=== PATIENT | male | born 1965 | race African-American/Black ===

== ENCOUNTER 2018-05-08 16:38 | Inpatient (IN) | payer MEDICAID ==
[2018-05-08] MEDS ORDERED: Aspirin 81mg Chewable Tab PO STA (16:52)
--- NOTE | 2018-05-08 16:58 | ED Physician Chart ---
ED Chief Complaint/HPI - Patient Information Date Seen:: 05/08/18 Time Seen:: 16:40 Chief Complaint:: Dyspnea History of Present Illness:: onset x one week of dyspnea and exertional, heavy, pressure type Chest pain; pt denies trauma, H/As, S/T, neck pain, cough, Abd. pain, A/N/V/D/C, fever, chills , or urinary s/s Historian:: Patient Review:: Nurse's Note Reviewed ED Review of Systems - Review of Systems General/Constitutional: No fever, No chills, No weight loss, No weakness, No diaphoresis, No edema, No loss of appetite Skin: No skin lesions, No rash, No bruising Head: No headache, No light-headedness Eyes: No loss of vision, No pain, No diplopia ENT: No earache, No nasal drainage, No sore throat, No tinnitus Neck: No neck pain, No swelling, No thyromegaly, No stiffness, No mass noted Cardio Vascular: Chest pain, No palpitations, No PND, No orthopnea, No edema Pulmonary: SOB, No cough, No sputum, No wheezing GI: No nausea, No vomiting, No diarrhea, No pain, No melena, No hematochezia, No constipation, No hematemesis G/U: No dysuria, No frequency, No hematuria, No nacturia Musculoskeletal: No bone or joint pain, No back pain, No muscle pain Endocrine: No polyuria, No polydipsia Psychiatric: No prior psych history, No depression, No anxiety, No suicidal ideation, No homicidal ideation, No auditory hallucination, No visual hallucination Hematopoietic: No bruising, No lymphadenopathy Allergic/Immuno: No urticaria, No angioedema Neurological: No syncope, No focal symptoms, No weakness, No paresthesia, No headache, No seizure, No dizziness, No confusion, No vertigo ED Past Medical History - Past Medical History Obtainable: Yes Past Medical History: HTN, Dyslipidemia Family History: HTN Social History: Non Smoker, No Alcohol, No Drug Use, , Employed Surgical History: None Psychiatricy History: None Medication: Reviewed ED Physical Exam - Physical Examination General/Constitutional: Awake, Well-developed, well-nourished, Alert, No distress, GCS 15, Non-toxic appearing, Ambulatory Head: Atraumatic Eyes: Lids, conjuctiva normal, PERRL, EOMI Skin: Nl inspection, No rash, No skin lesions, No ecchymosis, Well hydrated, No lymphadenopathy ENMT: External ears, nose nl, TM canals nl, Nasal exam nl, Lips, teeth, gums nl , Oropharynx nl, Tonsils nl Neck: Nontender, Full ROM w/o pain, No JVD, No nuchal rigidity, No bruit, No mass, No stridor Respiratory: Nl effort/Exclusion, Clear to Auscultation, No Wheeze/Rhonchi/Rales Cardio Vascular: RRR, No murmur, gallop, rubs, NL S1 S2, Carotid/Femoral/Distal pulses equal bilaterally GI: No tenderness/rebounding/guarding, No organomegaly, No hernia, Normal BS's, Nondistended, No mass/bruits, No McBurney tenderness : No CVA tenderness Extremities: No tenderness or effusion, Full ROM, normal strength in all extremities, No edema, Normal digits & nails Neuro/Psych: Alert/oriented, DTR's symmetric, Normal sensory exam, Normal motor strength, Judgement/insight normal, Mood normal, Normal gait, No focal deficits Misc: Normal back, No paraspinal tenderness ED Labs/Radiology/EKG Results - Lab Results Comments:: K+: 3.1 - Radiology Results Comments:: CXR: + Right Perii-Hilar Mass - EKG Interpretations EKG Time:: 17:02 Rate & Rhythm: 79; NSR Comments:: non-specific st-t changes ED Septic Shock - . Is Septic Shock (SBP<90, OR Lactate>4 mmol\L) present?: No ED Reassessment (Disposition) - Reassessment Reassessment Condition:: Improved - Diagnosis Diagnosis:: Chest Pain; Dyspnea; Angina Pectoris; Lung Mass; Hypokalemia; Hyperlipidemia - Aftercare/Follow up Instructions Aftercare/Follow-Up Instructions:: Counseled pt regarding lab results/diagnosis & need follow up, Counseled pt & family regarding lab results/diagnosis & need follow up - Patient Disposition Discharge/Transfer:: Acute Care w/in this hosp Accepting Physician:: Dr. Lester Time Called:: 1800 Time Responded:: 18:00 Admitted to:: Telemetry Spoke to:: Dr. Lester Admitting Medical Physician:: Dr. Lester Condition at Disposition:: Stable, Improved
[2018-05-08] MEDS ORDERED: Aspirin 81mg Chewable Tab ONE (17:01)
[2018-05-08 17:11] LABS: % BASOPHILS 0.7 % (0.0-2.0); % EOSINOPHILS 4.5 % (0.0-5.0); % MONOCYTES 7.5 % (2.0-10.0); % NEUTROPHILS 43.3 % (40.0-80.0); EOSINOPHILE ABSOLUTE 0.2 Th/cmm (0.1-0.4); HEMATOCRIT 46.5 % (41.0-60); HEMOGLOBIN 15.2 gm/dL (12-16); LYMPHOCYTE ABSOLUTE 2.5 Th/cmm (1.5-3.0); MEAN CELL VOLUME 86.4 fl (80-99); MEAN CORPUSCULAR HEMOGLOBIN 28.2 pg (26.0-30.0); MEAN CORPUSCULAR HGB CONC 32.7 pg (28.0-36.0); MEAN PLATELET VOLUME 8.4 fl; MONOCYTE ABSOLUTE 0.4 Th/cmm (0.3-1.0); NEUTROPHILE ABSOLUTE 2.4 Th/cmm (1.8-8.0); PLATELET COUNT 299 Th/cmm (150-400); RED BLOOD COUNT 5.38 Mil/cmm (4.30-5.70); RED CELL DISTRIBUTION WIDTH 12.6 % (11.5-20.0); WHITE BLOOD COUNT 5.5 Th/cmm (4.8-10.8)
[2018-05-08 17:22] LABS: INR 0.95 (0.5-1.4); PROTHROMBIN TIME (TEST) 9.9 SECONDS (9.5-11.5)
[2018-05-08 17:27] LABS: ALB/GLOB RATIO 1.2 (1.0-1.8); ALBUMIN 4.3 gm/dL (4.2-5.5); ALKALINE PHOSPHATASE 63 U/L (34-104); ANION GAP 10.3 (7.0-16.0); BILIRUBIN,TOTAL 0.5 mg/dL (0.3-1.0); BUN - UREA NITROGEN 18 mg/dL (7-25); CALCIUM SERUM 9.4 mg/dL (8.6-10.3); CARBON DIOXIDE 26.8 mEq/L (21.0-31.0); CHLORIDE 104 mEq/L (98-107); CHOLESTEROL 223 mg/dL (<200); CREATININE - SERUM 1.2 mg/dL (0.7-1.3); CREATININE KINASE 190 U/L (30-223); GFR AFRICAN-AMERICAN > 60.0 ml/min (>90); GFR NON AFRICAN-AMERICAN > 60.0 ml/min; GLUCOSE 84 mg/dL (70-105); HDL -HIGH DENSITY LIPOPROTEIN 56 mg/dL (23-92); POTASSIUM SERUM 3.1 mEq/L (3.5-5.1); SGOT 21 U/L (13-39); SGPT/ALT 16 U/L (7-52); SODIUM SERUM 138 mEq/L (136-145); TOTAL PROTEIN,SERUM 7.8 gm/dL (6.0-8.3); TRIGLYCERIDES 123 mg/dL (<150)
[2018-05-08 17:30] LABS: DDIMER QUANT 147 ng/mL (100-400)
[2018-05-08] MEDS ORDERED: Potassium Chloride 20 mEq ER Tab PO ONE ×2 (18:12→18:24)
[2018-05-08] MEDS ORDERED: Potassium Chloride Elixir 20 mEq /15 mL UDC ONE (18:27)
[2018-05-09 06:30] LABS: BASOPHILE ABSOLUTE 0.1 Th/cumm (0-0.2); EOSINOPHILE ABSOLUTE 0.3 Th/cmm (0.1-0.4); HEMATOCRIT 44.7 % (41.0-60); HEMOGLOBIN 14.5 gm/dL (12-16); LYMPHOCYTE ABSOLUTE 3.5 Th/cmm (1.5-3.0); MEAN CELL VOLUME 86.7 fl (80-99); MEAN CORPUSCULAR HEMOGLOBIN 28.2 pg (26.0-30.0); MEAN CORPUSCULAR HGB CONC 32.5 pg (28.0-36.0); MEAN PLATELET VOLUME 8.8 fl; MONOCYTE ABSOLUTE 0.4 Th/cmm (0.3-1.0); NEUTROPHILE ABSOLUTE 1.5 Th/cmm (1.8-8.0); PLATELET COUNT 298 Th/cmm (150-400); RED BLOOD COUNT 5.15 Mil/cmm (4.30-5.70); RED CELL DISTRIBUTION WIDTH 12.9 % (11.5-20.0); WHITE BLOOD COUNT 5.8 Th/cmm (4.8-10.8)
[2018-05-09 06:40] LABS: ALB/GLOB RATIO 1.3 (1.0-1.8); ALKALINE PHOSPHATASE 52 U/L (34-104); ANION GAP 8.6 (7.0-16.0); BILIRUBIN,TOTAL 0.5 mg/dL (0.3-1.0); BUN - UREA NITROGEN 14 mg/dL (7-25); CALCIUM SERUM 9.3 mg/dL (8.6-10.3); CARBON DIOXIDE 28.4 mEq/L (21.0-31.0); CHLORIDE 105 mEq/L (98-107); CREATININE - SERUM 1.2 mg/dL (0.7-1.3); GFR AFRICAN-AMERICAN > 60.0 ml/min (>90); GFR NON AFRICAN-AMERICAN > 60.0 ml/min; GLUCOSE 96 mg/dL (70-105); SGOT 19 U/L (13-39); SGPT/ALT 17 U/L (7-52); SODIUM SERUM 138 mEq/L (136-145); TOTAL PROTEIN,SERUM 7.2 gm/dL (6.0-8.3)
[2018-05-09 06:41] LABS: % EOSINOPHILS 5.5 % (0.0-5.0); % LYMPHOCYTES 60.9 % (20.0-50.0); % MONOCYTES 6.9 % (2.0-10.0); % NEUTROPHILS 25.7 % (40.0-80.0)
--- NOTE | 2018-05-09 08:37 | Diagnostic Imaging Report ---
CHEST X-RAY: AP view INDICATION: Chest pain COMPARISON: None FINDINGS: There is a large right-sided pneumothorax with right lung collapse and consolidation and minimal leftward mediastinal shift. Heart size normal. Osseous structures are intact. IMPRESSION: Large right-sided pneumothorax with associated consolidation and minimal leftward mediastinal shift. Recommend immediate right chest tube placement.
--- NOTE | 2018-05-09 09:16 | History and Physical ---
History of Present Illness - HPI Chief Complaint: Chest Pressure and SOB at exertion HPI: Patient refer that x one week he has having Chest pressure and SOB at exertion, reason why he came to ER. Vital Signs: Last Vital Signs Temp 96.9 F 05/09/18 08:00 Pulse 69 05/09/18 08:41 Resp 18 05/09/18 08:00 BP 124/79 05/09/18 08:41 Pulse Ox 98 05/09/18 08:00 Past Medical History Cardiovascular: Report: HTN Pulmonary: Report: No Pertinent Hx REROLLER HAND: Report: No Pertinent Hx GI: Report: No Pertinent Hx Psych: Report: No Pertinent Hx Musculoskeletal: Report: No Pertinent Hx Rheumatologic: Report: No pertinent Hx Infectious Disease: Report: No Pertinent Hx Renal/: Report: No Pertinent Hx Endocrine: Report: No Pertinent Hx Dermatology: Report: No Pertinent Hx Family Medical History - Family Member Mother History Unknown: Yes Age: 83 Living Status: Hx Family Cancer: Yes (Breast Cancer) Hx Family Coronary Artery Disease: No Hx Family Congestive Heart Failure: No Hx Family Hypertension: Yes Hx Family Stroke: No Hx Family Diabetes: No Hx Family Seizures: No Hx Family Dementia: Yes Hx Family AIDS: No Hx Family HIV: No Hx Family COPD: No Hx Family Hepatitis: No Hx Family Psychiatric Problems: No Hx Family Tuberculosis: No Father Age: 76 Living Status: Hx Family Stroke: Yes Social History Smoke: Quit Alcohol: Occassional Drugs: None Lives: With Family Domestic Violence: Negative - Allergies Allergies/Adverse Reactions: Allergies Allergy/AdvReac Type Severity Reaction Status Date / Time No Known Allergies Allergy Verified 05/08/18 18:01 Review of Systems - Review of Systems Constitutional: Report: No Significant Eyes: Report: No Significant ENT: Report: No Significant Respiratory: Report: Shortness of Breath Cardiovascular: Report: Palpitations Gastrointestinal: Report: No Significant Genitourinary: Report: No Significant Musculoskeletal: Report: No Significant Skin: Report: No Significant Neurological: Report: No Significant Physical Exam - Physical Exam HEENT: Report: Ears Nose Throat within normal limits Neck: Report: Within normal limits Cardiovascular Systems: Report: Regular, Rate and Rhythm Respiratory: Report: Other Abdomen: Report: Non-tender to palpation Back: Report: Inspection of back is within normal limits. Extremities: Report: Non-tender to palpation. Skin: Report: Color of skin is within normal limits, Warm, Dry Neuro/Psych: Report: Mood affect is within normal limits - Lab Results All Lab Results last 24 hours: Laboratory Results - last 24 hr 05/08/18 05/08/18 05/08/18 17:05 17:05 17:05 WBC 5.5 RBC 5.38 Hgb 15.2 Hct 46.5 MCV 86.4 MCH 28.2 MCHC Differential 32.7 RDW 12.6 Plt Count 299 MPV 8.4 Neutrophils % 43.3 Lymphocytes % 44.0 Monocytes % 7.5 Eosinophils % 4.5 Basophils % 0.7 PT 9.9 INR 0.95 D-Dimer 147 Sodium 138 Potassium 3.1 L Chloride 104 Carbon Dioxide 26.8 Anion Gap 10.3 BUN 18 Creatinine 1.2 Est GFR ( Amer) > 60.0 Est GFR (Non-Af Amer) > 60.0 BUN/Creatinine Ratio 15.0 Glucose 84 POC Glucose Calcium 9.4 Total Bilirubin 0.5 AST 21 ALT 16 Alkaline Phosphatase 63 Creatine Kinase 190 Troponin I B-Natriuretic Peptide Total Protein 7.8 Albumin 4.3 Globulin 3.5 Albumin/Globulin Ratio 1.2 Triglycerides 123 Cholesterol 223 H LDL Cholesterol Direct 146 HDL Cholesterol 56 05/08/18 05/08/18 05/08/18 17:05 17:05 21:51 WBC RBC Hgb Hct MCV MCH MCHC Differential RDW Plt Count MPV Neutrophils % Lymphocytes % Monocytes % Eosinophils % Basophils % PT INR D-Dimer Sodium Potassium Chloride Carbon Dioxide Anion Gap BUN Creatinine Est GFR ( Amer) Est GFR (Non-Af Amer) BUN/Creatinine Ratio Glucose POC Glucose 107 H Calcium Total Bilirubin AST ALT Alkaline Phosphatase Creatine Kinase Troponin I < 0.01 L B-Natriuretic Peptide < 5.0 L Total Protein Albumin Globulin Albumin/Globulin Ratio Triglycerides Cholesterol LDL Cholesterol Direct HDL Cholesterol 05/09/18 05/09/18 05/09/18 05:50 05:50 05:50 WBC 5.8 RBC 5.15 Hgb 14.5 Hct 44.7 MCV 86.7 MCH 28.2 MCHC Differential 32.5 RDW 12.9 Plt Count 298 MPV 8.8 Neutrophils % 25.7 L Lymphocytes % 60.9 H Monocytes % 6.9 Eosinophils % 5.5 H Basophils % 1.0 PT INR D-Dimer Sodium 138 Potassium 4.0 Chloride 105 Carbon Dioxide 28.4 Anion Gap 8.6 BUN 14 Creatinine 1.2 Est GFR ( Amer) > 60.0 Est GFR (Non-Af Amer) > 60.0 BUN/Creatinine Ratio 11.7 Glucose 96 POC Glucose Calcium 9.3 Total Bilirubin 0.5 AST 19 ALT 17 Alkaline Phosphatase 52 Creatine Kinase Troponin I < 0.01 L B-Natriuretic Peptide Total Protein 7.2 Albumin 4.0 L Globulin 3.2 Albumin/Globulin Ratio 1.3 Triglycerides Cholesterol LDL Cholesterol Direct HDL Cholesterol - Assessment Assessment: Patient is awake, alert, calm in no acute distress, final report for CXR came and shows a bigh Pneumothorax. Dx:Pneumothorax, HTN, Dyslipemia. - Plan Plan: Patient is transferred to ICU, and Chest tub will be placed. Consult with pulmonology and Surgery requested. Will continue to monitor.
[2018-05-09] MEDS: Morphine Sulfate 4 mg/mL 1mL Syr IVP PRN ×2 (10:40→13:53)
--- NOTE | 2018-05-09 11:05 | Diagnostic Imaging Report ---
CHEST X-RAY: AP view INDICATION: Right pneumothorax status post right chest tube COMPARISON: Chest x-ray 05/08/2018 FINDINGS: Right chest tube has been placed with interval reexpansion of the right lung and residual right lateral and basal pneumothorax estimated at 20%. Right basal atelectasis is noted. There is a nodular opacity measuring 1.1 cm along the left mid lung. Heart size is normal. IMPRESSION: Interval right chest tube placement with tip along the right apex. There is reexpansion of the right lung. There is likely a small right basal pneumothorax estimated at 20%. 1.1 cm left mid lung nodular opacity. Recommend short-term further assessment of this finding with CT of the chest. Results were administered to the referring team on 05/09/2018 at 10:55 AM.
[2018-05-09] MEDS: Levofloxacin 750mg/150mL 750 MG/150 ML BAG IV SCH (11:15)
--- NOTE | 2018-05-09 13:23 | Diagnostic Imaging Report ---
CT Chest without IV contrast HISTORY: Pneumothorax, mass COMPARISON: Chest x-ray earlier the same day. Technique: Axial images were obtained from the base of the neck to the upper abdomen without IV contrast. Reconstructions were made. A right anterior chest tube is noted with tip terminating along the right apex. There is a large right pneumothorax estimated at 60%. There is are mild bullous changes in the right apex with 1.5 cm bulla in the apex. There is also a large cystic structure /bulla arising from the anterior medial aspect of the inferior aspect of the right upper lobe adjacent to the right heart border measuring 3.3 x 2.7 x 4.2 cm. (Image 33, series 5 and image 60, series 4.) Groundglass infiltrates right lung are seen with areas of consolidative change involving the right middle lobe. There is also a slightly lobulated 1.6 cm nodule of the left upper lobe with punctate calcifications. No pleural effusions are identified. No evidence of mediastinal lymphadenopathy. Degenerative changes of the spine are noted. IMPRESSION: Persistent large right-sided pneumothorax estimated at 60 %. A right anterior chest tube is now noted with tip terminating along the right apex. There is a large bulla which is almost sequestered from the right lung arising from the most medial and inferior aspect of the right upper lobe adjacent to the right heart border. This bulla measures 3.3 x 2.7 x 4.2 cm. Additional smaller right apical bullae are also noted. Right lung infiltrates and right middle lobe consolidation changes. Left midlung 1.6 cm nodule which may be due to neoplastic process or a pulmonary hamartoma as there is a small calcification within this lesion.
--- NOTE | 2018-05-09 14:09 | Consultation ---
DATE OF CONSULTATION: 05/09/2018 THORACIC SURGICAL CONSULTATION REFERRING PHYSICIAN: Trevon REASON FOR CONSULTATION: Right pneumothorax. Thank you for referring this patient to me. HISTORY OF PRESENT ILLNESS: This is a 52-year-old male, who comes in because of shortness of breath. This happened suddenly. The patient does heavy muscular exercise. He has history of hypertension and hyperlipidemia. On x-ray in the ER, the patient was found to have a large right pneumothorax. He is admitted to ICU. PHYSICAL EXAMINATION: The patient is alert and awake. is at bedside. PLAN: We will place chest tube in the right chest. Informed consent discussed with the patient regarding the procedure and possible complications. CT scan will be ordered to rule out apical bullae. JOB# [id number] MTDD
[2018-05-09] MEDS: HYDROmorphone 2 mg/mL 1mL Vial IVP PRN ×2 (15:39→20:06)
--- NOTE | 2018-05-09 16:14 | Operative Report ---
DATE OF SURGERY: 05/09/2018 PREOPERATIVE DIAGNOSES: 1. Spontaneous pneumothorax, right chest. 2. Hypertension. 3. Hyperlipidemia. POSTOPERATIVE DIAGNOSES: 1. Spontaneous pneumothorax, right chest. 2. Hypertension. 3. Hyperlipidemia. OPERATION DONE: Insertion of right chest tube. PROCEDURE: Right chest was prepped with ChloraPrep and draped in appropriate manner. A 1% lidocaine was used to infiltrate the seventh intercostal space at the midaxillary line. An incision was made. Hemostats was inserted and then a Macedonian 24 trocar catheter. This anchored to the skin with 2-0 silk, it is connected to underwater seal and suction. The patient tolerated the procedure well. JOB# [id number]
[2018-05-09] MEDS: Albuterol/Ipratropium Neb 3 ML AERS HHN SCH (19:40)
[2018-05-10] MEDS: Albuterol/Ipratropium Neb 3 ML AERS HHN SCH ×4 (00:53→19:43)
[2018-05-10 04:48] LABS: EOSINOPHILE ABSOLUTE 0.2 Th/cmm (0.1-0.4); LYMPHOCYTE ABSOLUTE 2.7 Th/cmm (1.5-3.0); MONOCYTE ABSOLUTE 0.7 Th/cmm (0.3-1.0)
[2018-05-10 04:50] LABS: % BASOPHILS 0.2 % (0.0-2.0); % EOSINOPHILS 2.7 % (0.0-5.0); % LYMPHOCYTES 32.6 % (20.0-50.0); % MONOCYTES 8.8 % (2.0-10.0); % NEUTROPHILS 55.7 % (40.0-80.0); HEMATOCRIT 45.4 % (41.0-60); HEMOGLOBIN 15.2 gm/dL (12-16); MEAN CELL VOLUME 85.9 fl (80-99); MEAN CORPUSCULAR HEMOGLOBIN 28.8 pg (26.0-30.0); MEAN CORPUSCULAR HGB CONC 33.5 pg (28.0-36.0); MEAN PLATELET VOLUME 8.3 fl; NEUTROPHILE ABSOLUTE 4.6 Th/cmm (1.8-8.0); PLATELET COUNT 287 Th/cmm (150-400); RED BLOOD COUNT 5.28 Mil/cmm (4.30-5.70); RED CELL DISTRIBUTION WIDTH 12.8 % (11.5-20.0); WHITE BLOOD COUNT 8.2 Th/cmm (4.8-10.8)
[2018-05-10 05:08] LABS: ANION GAP 11.8 (7.0-16.0); BUN - UREA NITROGEN 15 mg/dL (7-25); CALCIUM SERUM 9.2 mg/dL (8.6-10.3); CARBON DIOXIDE 25.8 mEq/L (21.0-31.0); CHLORIDE 99 mEq/L (98-107); CREATININE - SERUM 1.2 mg/dL (0.7-1.3); GFR AFRICAN-AMERICAN > 60.0 ml/min (>90); GFR NON AFRICAN-AMERICAN > 60.0 ml/min; GLUCOSE 125 mg/dL (70-105); POTASSIUM SERUM 3.6 mEq/L (3.5-5.1); SODIUM SERUM 133 mEq/L (136-145)
--- NOTE | 2018-05-10 08:33 | General Progress Note ---
Subjective - Review of Systems Service Date: 05/10/18 Events since last encounter: chest xray today no pneumo CT shwos RUL bulla needs bullaectomy if sealant is available Objective - Results Result Diagrams: 05/10/18 04:40 05/10/18 04:40 Recent Labs: Laboratory Last Values WBC 8.2 Th/cmm (4.8-10.8) 05/10/18 04:40 RBC 5.28 Mil/cmm (4.30-5.70) 05/10/18 04:40 Hgb 15.2 gm/dL (12-16) 05/10/18 04:40 Hct 45.4 % (41.0-60) 05/10/18 04:40 MCV 85.9 fl (80-99) 05/10/18 04:40 MCH 28.8 pg (26.0-30.0) 05/10/18 04:40 MCHC Differential 33.5 pg (28.0-36.0) 05/10/18 04:40 RDW 12.8 % (11.5-20.0) 05/10/18 04:40 Plt Count 287 Th/cmm (150-400) 05/10/18 04:40 MPV 8.3 fl 05/10/18 04:40 Neutrophils % 55.7 % (40.0-80.0) 05/10/18 04:40 Lymphocytes % 32.6 % (20.0-50.0) 05/10/18 04:40 Monocytes % 8.8 % (2.0-10.0) 05/10/18 04:40 Eosinophils % 2.7 % (0.0-5.0) 05/10/18 04:40 Basophils % 0.2 % (0.0-2.0) 05/10/18 04:40 PT 9.9 SECONDS (9.5-11.5) 05/08/18 17:05 INR 0.95 (0.5-1.4) 05/08/18 17:05 D-Dimer 147 ng/mL (100-400) 05/08/18 17:05 Sodium 133 mEq/L (136-145) L 05/10/18 04:40 Potassium 3.6 mEq/L (3.5-5.1) 05/10/18 04:40 Chloride 99 mEq/L (98-107) 05/10/18 04:40 Carbon Dioxide 25.8 mEq/L (21.0-31.0) 05/10/18 04:40 Anion Gap 11.8 (7.0-16.0) 05/10/18 04:40 BUN 15 mg/dL (7-25) 05/10/18 04:40 Creatinine 1.2 mg/dL (0.7-1.3) 05/10/18 04:40 Est GFR ( Amer) > 60.0 ml/min (>90) 05/10/18 04:40 Est GFR (Non-Af Amer) > 60.0 ml/min 05/10/18 04:40 BUN/Creatinine Ratio 12.5 05/10/18 04:40 Glucose 125 mg/dL (70-105) H 05/10/18 04:40 POC Glucose 107 MG/DL (70 - 105) H 05/08/18 21:51 Calcium 9.2 mg/dL (8.6-10.3) 05/10/18 04:40 Total Bilirubin 0.5 mg/dL (0.3-1.0) 05/09/18 05:50 AST 19 U/L (13-39) 05/09/18 05:50 ALT 17 U/L (7-52) 05/09/18 05:50 Alkaline Phosphatase 52 U/L (34-104) 05/09/18 05:50 Creatine Kinase 190 U/L (30-223) 05/08/18 17:05 Troponin I < 0.01 ng/mL (0.01-0.05) L 05/09/18 05:50 B-Natriuretic Peptide < 5.0 pg/mL (5.0-100.0) L 05/08/18 17:05 Total Protein 7.2 gm/dL (6.0-8.3) 05/09/18 05:50 Albumin 4.0 gm/dL (4.2-5.5) L 05/09/18 05:50 Globulin 3.2 gm/dL 05/09/18 05:50 Albumin/Globulin Ratio 1.3 (1.0-1.8) 05/09/18 05:50 Triglycerides 123 mg/dL (<150) 05/08/18 17:05 Cholesterol 223 mg/dL (<200) H 05/08/18 17:05 LDL Cholesterol Direct 146 mg/dL (75-193) 05/08/18 17:05 HDL Cholesterol 56 mg/dL (23-92) 05/08/18 17:05 - Physical Exam Vitals and I&O: Vital Signs Temp 97.1 F 05/10/18 08:00 Pulse 55 05/10/18 08:00 Resp 15 05/10/18 08:00 BP 118/81 05/10/18 08:00 Pulse Ox 99 05/10/18 08:00 Intake & Output 05/09/18 05/10/18 05/10/18 18:59 06:59 18:59 Intake Total 350 Balance 350 Weight (lbs) 90.718 kg 90.718 kg Intake: Intake, IV Amount 150 Levofloxacin 750mg/150mL 150 750 mg In 150 ml @ 100 mls/hr IV Q24H [facility] Rx#: [id number] Oral 200 Other: # Voids 1 # Bowel Movements 0 Stool Characteristics Formed Brown Weight Source Bedscale Bedscale Active Medications: Current Medications Acetaminophen (Tylenol) 650 mg PO Q6H PRN PRN Reason: Pain or Fever >101 Stop: 07/07/18 19:45 Last Admin: 05/10/18 02:44 Dose: 650 mg Albuterol/Ipratropium (Duoneb Neb) 3 ml HHN Q6HRT [facility] Stop: 07/08/18 18:59 Last Admin: 05/10/18 07:06 Dose: 3 ml Amlodipine Besylate (Norvasc) 10 mg PO DAILY [facility] Stop: 07/08/18 08:59 Last Admin: 05/09/18 08:41 Dose: 10 mg Aspirin (Aspirin) 325 mg PO DAILY [facility] Stop: 07/08/18 08:59 Last Admin: 05/09/18 08:40 Dose: 325 mg Hydrochlorothiazide (Hctz) 25 mg PO DAILY [facility] Stop: 07/08/18 08:59 Last Admin: 05/09/18 08:40 Dose: 25 mg Hydromorphone HCl (Dilaudid) 2 mg IVP Q4HR PRN PRN Reason: Severe Pain Stop: 07/08/18 15:20 Last Admin: 05/09/18 20:06 Dose: 2 mg Levofloxacin (Levaquin Pb) 750 mg in 150 mls @ 100 mls/hr IV Q24H [facility] Stop: 07/08/18 10:59 Last Infusion: 05/09/18 12:45 Dose: Infused Ondansetron HCl (Zofran) 4 mg IV Q6H PRN PRN Reason: Nausea / Vomiting Stop: 07/07/18 19:45 Last Admin: 05/09/18 17:48 Dose: 4 mg Ondansetron HCl (Zofran Odt) 4 mg PO Q6H PRN PRN Reason: Nausea / Vomiting Stop: 07/08/18 17:28 Temazepam (Restoril) 15 mg PO HS PRN; Protocol PRN Reason: Insomnia Stop: 07/08/18 17:28 Last Admin: 05/10/18 00:16 Dose: 15 mg
--- NOTE | 2018-05-10 09:07 | Diagnostic Imaging Report ---
Portable chest x-ray HISTORY: Shortness of breath Compared with prior exam of 05/09/2018, no definite right pneumothorax is clearly visualized. No change in right chest tube position. No change in previously reported 1.5 cm faint nodular density within the left upper lobe. IMPRESSION: 1. No change in right chest tube position. No definite pneumothorax can be defined at this time. 2. No change in previously reported pulmonary nodule within the left lung.
--- NOTE | 2018-05-10 09:07 | General Progress Note ---
Subjective - Review of Systems Service Date: 05/10/18 Subjective: I am better Objective - Results Result Diagrams: 05/10/18 04:40 05/10/18 04:40 Recent Labs: Laboratory Last Values WBC 8.2 Th/cmm (4.8-10.8) 05/10/18 04:40 RBC 5.28 Mil/cmm (4.30-5.70) 05/10/18 04:40 Hgb 15.2 gm/dL (12-16) 05/10/18 04:40 Hct 45.4 % (41.0-60) 05/10/18 04:40 MCV 85.9 fl (80-99) 05/10/18 04:40 MCH 28.8 pg (26.0-30.0) 05/10/18 04:40 MCHC Differential 33.5 pg (28.0-36.0) 05/10/18 04:40 RDW 12.8 % (11.5-20.0) 05/10/18 04:40 Plt Count 287 Th/cmm (150-400) 05/10/18 04:40 MPV 8.3 fl 05/10/18 04:40 Neutrophils % 55.7 % (40.0-80.0) 05/10/18 04:40 Lymphocytes % 32.6 % (20.0-50.0) 05/10/18 04:40 Monocytes % 8.8 % (2.0-10.0) 05/10/18 04:40 Eosinophils % 2.7 % (0.0-5.0) 05/10/18 04:40 Basophils % 0.2 % (0.0-2.0) 05/10/18 04:40 PT 9.9 SECONDS (9.5-11.5) 05/08/18 17:05 INR 0.95 (0.5-1.4) 05/08/18 17:05 D-Dimer 147 ng/mL (100-400) 05/08/18 17:05 Sodium 133 mEq/L (136-145) L 05/10/18 04:40 Potassium 3.6 mEq/L (3.5-5.1) 05/10/18 04:40 Chloride 99 mEq/L (98-107) 05/10/18 04:40 Carbon Dioxide 25.8 mEq/L (21.0-31.0) 05/10/18 04:40 Anion Gap 11.8 (7.0-16.0) 05/10/18 04:40 BUN 15 mg/dL (7-25) 05/10/18 04:40 Creatinine 1.2 mg/dL (0.7-1.3) 05/10/18 04:40 Est GFR ( Amer) > 60.0 ml/min (>90) 05/10/18 04:40 Est GFR (Non-Af Amer) > 60.0 ml/min 05/10/18 04:40 BUN/Creatinine Ratio 12.5 05/10/18 04:40 Glucose 125 mg/dL (70-105) H 05/10/18 04:40 POC Glucose 107 MG/DL (70 - 105) H 05/08/18 21:51 Calcium 9.2 mg/dL (8.6-10.3) 05/10/18 04:40 Total Bilirubin 0.5 mg/dL (0.3-1.0) 05/09/18 05:50 AST 19 U/L (13-39) 05/09/18 05:50 ALT 17 U/L (7-52) 05/09/18 05:50 Alkaline Phosphatase 52 U/L (34-104) 05/09/18 05:50 Creatine Kinase 190 U/L (30-223) 05/08/18 17:05 Troponin I < 0.01 ng/mL (0.01-0.05) L 05/09/18 05:50 B-Natriuretic Peptide < 5.0 pg/mL (5.0-100.0) L 05/08/18 17:05 Total Protein 7.2 gm/dL (6.0-8.3) 05/09/18 05:50 Albumin 4.0 gm/dL (4.2-5.5) L 05/09/18 05:50 Globulin 3.2 gm/dL 05/09/18 05:50 Albumin/Globulin Ratio 1.3 (1.0-1.8) 05/09/18 05:50 Triglycerides 123 mg/dL (<150) 05/08/18 17:05 Cholesterol 223 mg/dL (<200) H 05/08/18 17:05 LDL Cholesterol Direct 146 mg/dL (75-193) 05/08/18 17:05 HDL Cholesterol 56 mg/dL (23-92) 05/08/18 17:05 - Physical Exam Vitals and I&O: Vital Signs Temp 97.1 F 05/10/18 08:00 Pulse 55 05/10/18 08:00 Resp 15 05/10/18 08:00 BP 118/81 05/10/18 08:00 Pulse Ox 99 05/10/18 08:00 Intake & Output 05/09/18 05/10/18 05/10/18 18:59 06:59 18:59 Intake Total 350 Balance 350 Weight (lbs) 90.718 kg 90.718 kg Intake: Intake, IV Amount 150 Levofloxacin 750mg/150mL 150 750 mg In 150 ml @ 100 mls/hr IV Q24H [facility] Rx#: [id number] Oral 200 Other: # Voids 1 # Bowel Movements 0 Stool Characteristics Formed Brown Weight Source Bedscale Bedscale Active Medications: Current Medications Acetaminophen (Tylenol) 650 mg PO Q6H PRN PRN Reason: Pain or Fever >101 Stop: 07/07/18 19:45 Last Admin: 05/10/18 02:44 Dose: 650 mg Albuterol/Ipratropium (Duoneb Neb) 3 ml HHN Q6HRT [facility] Stop: 07/08/18 18:59 Last Admin: 05/10/18 07:06 Dose: 3 ml Amlodipine Besylate (Norvasc) 10 mg PO DAILY [facility] Stop: 07/08/18 08:59 Last Admin: 05/09/18 08:41 Dose: 10 mg Aspirin (Aspirin) 325 mg PO DAILY [facility] Stop: 07/08/18 08:59 Last Admin: 05/09/18 08:40 Dose: 325 mg Hydrochlorothiazide (Hctz) 25 mg PO DAILY [facility] Stop: 07/08/18 08:59 Last Admin: 05/09/18 08:40 Dose: 25 mg Hydromorphone HCl (Dilaudid) 2 mg IVP Q4HR PRN PRN Reason: Severe Pain Stop: 07/08/18 15:20 Last Admin: 05/09/18 20:06 Dose: 2 mg Levofloxacin (Levaquin Pb) 750 mg in 150 mls @ 100 mls/hr IV Q24H [facility] Stop: 08/12/18 10:59 Last Infusion: 05/09/18 12:45 Dose: Infused Ondansetron HCl (Zofran) 4 mg IV Q6H PRN PRN Reason: Nausea / Vomiting Stop: 07/07/18 19:45 Last Admin: 05/09/18 17:48 Dose: 4 mg Ondansetron HCl (Zofran Odt) 4 mg PO Q6H PRN PRN Reason: Nausea / Vomiting Stop: 07/08/18 17:28 Temazepam (Restoril) 15 mg PO HS PRN; Protocol PRN Reason: Insomnia Stop: 07/08/18 17:28 Last Admin: 05/10/18 00:16 Dose: 15 mg General: Alert, Oriented x3, Cooperative, No acute distress HEENT: Atraumatic Neck: Supple Cardiovascular: Regular rate Lungs: Other (No air entry in right lung, with a chest tube in right hemithorax. ) Abdomen: Bowel sounds, Soft Extremities: Other (No edema) Neurological: Normal gait Skin: Other (Warm and dry) Psych/Mental Status: Mental status NL Assessment/Plan - Assessment Assessment: Patient is awake, alert, calm in no acute distress, Chest CT shows a bulle, Pneumothorax an a nodule in midle left lung, Patient refer that a biopsy was done and came normal. Dx:Pneumothorax, HTN, Dyslipemia. - Plan Plan: Patient is transferred to ICU, Chest tub in place. Seen by pulmonology and Surgery. Will continue to monitor.
[2018-05-10] MEDS: HYDROmorphone 2 mg/mL 1mL Vial IVP PRN ×2 (09:19→14:10)
[2018-05-10] MEDS: Levofloxacin 750mg/150mL 750 MG/150 ML BAG IV SCH (10:02)
--- NOTE | 2018-05-10 13:11 | Consultation ---
DATE OF CONSULTATION: 05/09/[address] Lester. HISTORY AND PHYSICAL: This 52-year-old male patient who has been complaining of sudden onset of shortness of breath. The patient does have heavy muscular exercise. The patient came to the Emergency Room. The patient had a large right pneumothorax since the patient had a chest tube and patient is admitted to ICU. PAST MEDICAL HISTORY: Hypertension, hyperlipidemia. FAMILY HISTORY: Unremarkable. SOCIAL HISTORY: No history of smoking, alcohol abuse. ALLERGIES: None. PHYSICAL EXAMINATION: VITAL SIGNS: Blood pressure 130/80, pulse 70, respirations 20. HEAD: Normocephalic. No lumps or bumps. EYES: Pupils equal, reactive to light. Fundi show AV nicking, sclerae white, conjunctivae pink. NECK: Carotid 2+. Normal upstroke. JVD flat. Thyroid not palpable. Lymph nodes not palpable. CHEST: Shows increased AP diameter. No kyphosis, scoliosis. LUNGS: Bilateral bronchovesicular breath sounds. HEART: PMI fifth intercostal space with lateral to midclavicular line. S1, S2. No S3, S4. Soft systolic murmur. ABDOMEN: Soft. Liver and spleen not palpable. No organomegaly. Bowel sounds active. NEUROLOGIC: Unremarkable. EXTREMITIES: Peripheral pulses 2+. No pedal edema. CLINICAL IMPRESSION: Acute right pneumothorax with chest tube, hypertension, hyperlipidemia. PLAN: We will continue present care. Monitor the patient closely. Also get an echocardiogram. [facility]# [id number]
--- NOTE | 2018-05-10 17:18 | Consultation ---
DATE OF CONSULTATION: 05/09/[address] Lester for this consultation. HISTORY OF PRESENT ILLNESS: This is a 52-year-old male who apparently has been complaining of some right-sided pressure for about a week, presented to Emergency Room yesterday. This morning, the chest x-ray was called to have a pneumothorax. I was called for consultation, advised to have a thoracic surgeon see the patient for chest tube placement, which the patient had. The patient is feeling better, pressure is less, chest pain is less, having some nausea. The patient denies history of lung problems before, but he has a history of smoking for about a pack a day since age 14, quit a year ago, still does some vaping according to his . The patient does body building and heavy weight lifting and exercising. REVIEW OF SYSTEMS: GENERAL: Some weakness and fatigue. CARDIOVASCULAR: No chest pain or palpation. RESPIRATORY: Shortness of breath and chest pressure on the right side. GASTROINTESTINAL: Some nausea, no vomiting. GENITOURINARY: No dysuria or frequency. PHYSICAL EXAMINATION: GENERAL: Awake, alert, not in acute distress. VITAL SIGNS: Temperature is 97.6, pulse 70, respirations 15, blood pressure 128/94, saturation 98%. HEENT: Atraumatic, normocephalic. Pupils are equal and reactive to light and accommodation. Ears, nose and throat are normal. NECK: Supple. No JVD. CHEST: There are good breath sounds bilaterally. No wheezing or crackles. HEART: Regular rate and rhythm. ABDOMEN: Soft. EXTREMITIES: No edema. LABORATORY DATA: WBCs is 5.8, hemoglobin 14.5, hematocrit 44.7, platelets 298. Sodium ___, potassium 4.0, BUN is 14, creatinine 1.2. Troponin is less than 0.01. Chest x-ray, large pneumothorax on the right side, almost full expansion of the lung on the right side after chest tube placement. CT chest showing the pneumothorax with right chest tube, bulla, and nodule in the left lower lobe area. IMPRESSION AND PLAN: 1. This is a right-sided pneumothorax with possibly underlying COPD and emphysematous changes in addition precipitated by heavy weight lifting as well, better after chest tube placement ____ chest tube to suction. 2. Follow up chest x-ray. 3. Nausea medication, nebulizer treatments, advised to stay away from smoking or vaping as well. Thank you very much for this consultation. We will follow the patient with you. JOB# [id number]
[2018-05-11] MEDS: Albuterol/Ipratropium Neb 3 ML AERS HHN SCH ×4 (00:07→19:08)
[2018-05-11] MEDS: HYDROmorphone 2 mg/mL 1mL Vial IVP PRN ×5 (00:47→20:25)
[2018-05-11 05:21] LABS: % BASOPHILS 0.3 % (0.0-2.0); % EOSINOPHILS 4.6 % (0.0-5.0); % MONOCYTES 7.5 % (2.0-10.0); % NEUTROPHILS 45.6 % (40.0-80.0); EOSINOPHILE ABSOLUTE 0.3 Th/cmm (0.1-0.4); HEMATOCRIT 45.4 % (41.0-60); HEMOGLOBIN 14.9 gm/dL (12-16); LYMPHOCYTE ABSOLUTE 2.7 Th/cmm (1.5-3.0); MEAN CELL VOLUME 86.2 fl (80-99); MEAN CORPUSCULAR HEMOGLOBIN 28.3 pg (26.0-30.0); MEAN CORPUSCULAR HGB CONC 32.8 pg (28.0-36.0); MEAN PLATELET VOLUME 8.3 fl; MONOCYTE ABSOLUTE 0.5 Th/cmm (0.3-1.0); NEUTROPHILE ABSOLUTE 2.9 Th/cmm (1.8-8.0); PLATELET COUNT 303 Th/cmm (150-400); RED BLOOD COUNT 5.26 Mil/cmm (4.30-5.70); RED CELL DISTRIBUTION WIDTH 12.4 % (11.5-20.0); WHITE BLOOD COUNT 6.4 Th/cmm (4.8-10.8)
[2018-05-11 05:31] LABS: INR 0.95 (0.5-1.4); PROTHROMBIN TIME (TEST) 9.9 SECONDS (9.5-11.5)
[2018-05-11 05:34] LABS: ALB/GLOB RATIO 1.2 (1.0-1.8); ALBUMIN 4.1 gm/dL (4.2-5.5); ALKALINE PHOSPHATASE 70 U/L (34-104); ANION GAP 10.3 (7.0-16.0); BILIRUBIN,TOTAL 0.5 mg/dL (0.3-1.0); BUN - UREA NITROGEN 15 mg/dL (7-25); CARBON DIOXIDE 30.1 mEq/L (21.0-31.0); CHLORIDE 98 mEq/L (98-107); CREATININE - SERUM 1.3 mg/dL (0.7-1.3); GFR AFRICAN-AMERICAN > 60.0 ml/min (>90); GFR NON AFRICAN-AMERICAN > 60.0 ml/min; GLUCOSE 99 mg/dL (70-105); POTASSIUM SERUM 3.4 mEq/L (3.5-5.1); SGOT 17 U/L (13-39); SGPT/ALT 17 U/L (7-52); SODIUM SERUM 135 mEq/L (136-145); TOTAL PROTEIN,SERUM 7.6 gm/dL (6.0-8.3)
[2018-05-11] MEDS: D5-0.9%NS 1,000 ML IV SCH ×2 (07:04→18:53)
[2018-05-11] MEDS ORDERED: KCL 20mEq/100mL Premix 20 MEQ/100 ML PIGGYBACK IV ONE (07:42)
--- NOTE | 2018-05-11 08:32 | General Progress Note ---
Subjective - Review of Systems Service Date: 05/11/18 Subjective: I am better Objective - Results Result Diagrams: 05/11/18 05:00 05/11/18 05:00 Recent Labs: Laboratory Last Values WBC 6.4 Th/cmm (4.8-10.8) 05/11/18 05:00 RBC 5.26 Mil/cmm (4.30-5.70) 05/11/18 05:00 Hgb 14.9 gm/dL (12-16) 05/11/18 05:00 Hct 45.4 % (41.0-60) 05/11/18 05:00 MCV 86.2 fl (80-99) 05/11/18 05:00 MCH 28.3 pg (26.0-30.0) 05/11/18 05:00 MCHC Differential 32.8 pg (28.0-36.0) 05/11/18 05:00 RDW 12.4 % (11.5-20.0) 05/11/18 05:00 Plt Count 303 Th/cmm (150-400) 05/11/18 05:00 MPV 8.3 fl 05/11/18 05:00 Neutrophils % 45.6 % (40.0-80.0) 05/11/18 05:00 Lymphocytes % 42.0 % (20.0-50.0) 05/11/18 05:00 Monocytes % 7.5 % (2.0-10.0) 05/11/18 05:00 Eosinophils % 4.6 % (0.0-5.0) 05/11/18 05:00 Basophils % 0.3 % (0.0-2.0) 05/11/18 05:00 PT 9.9 SECONDS (9.5-11.5) 05/11/18 05:00 INR 0.95 (0.5-1.4) 05/11/18 05:00 PTT (Actin FS) 28.1 SECONDS (26.0-38.0) 05/11/18 05:00 D-Dimer 147 ng/mL (100-400) 05/08/18 17:05 Sodium 135 mEq/L (136-145) L 05/11/18 05:00 Potassium 3.4 mEq/L (3.5-5.1) L 05/11/18 05:00 Chloride 98 mEq/L (98-107) 05/11/18 05:00 Carbon Dioxide 30.1 mEq/L (21.0-31.0) 05/11/18 05:00 Anion Gap 10.3 (7.0-16.0) 05/11/18 05:00 BUN 15 mg/dL (7-25) 05/11/18 05:00 Creatinine 1.3 mg/dL (0.7-1.3) 05/11/18 05:00 Est GFR ( Amer) > 60.0 ml/min (>90) 05/11/18 05:00 Est GFR (Non-Af Amer) > 60.0 ml/min 05/11/18 05:00 BUN/Creatinine Ratio 11.5 05/11/18 05:00 Glucose 99 mg/dL (70-105) 05/11/18 05:00 POC Glucose 107 MG/DL (70 - 105) H 05/08/18 21:51 Calcium 9.0 mg/dL (8.6-10.3) 05/11/18 05:00 Total Bilirubin 0.5 mg/dL (0.3-1.0) 05/11/18 05:00 AST 17 U/L (13-39) 05/11/18 05:00 ALT 17 U/L (7-52) 05/11/18 05:00 Alkaline Phosphatase 70 U/L (34-104) 05/11/18 05:00 Creatine Kinase 190 U/L (30-223) 05/08/18 17:05 Troponin I < 0.01 ng/mL (0.01-0.05) L 05/09/18 05:50 B-Natriuretic Peptide < 5.0 pg/mL (5.0-100.0) L 05/08/18 17:05 Total Protein 7.6 gm/dL (6.0-8.3) 05/11/18 05:00 Albumin 4.1 gm/dL (4.2-5.5) L 05/11/18 05:00 Globulin 3.5 gm/dL 05/11/18 05:00 Albumin/Globulin Ratio 1.2 (1.0-1.8) 05/11/18 05:00 Triglycerides 123 mg/dL (<150) 05/08/18 17:05 Cholesterol 223 mg/dL (<200) H 05/08/18 17:05 LDL Cholesterol Direct 146 mg/dL (75-193) 05/08/18 17:05 HDL Cholesterol 56 mg/dL (23-92) 05/08/18 17:05 Blood Type O POSITIVE 05/11/18 05:00 Antibody Screen NEGATIVE 05/11/18 05:00 - Physical Exam Vitals and I&O: Vital Signs Temp 98.1 F 05/11/18 07:00 Pulse 63 05/11/18 07:13 Resp 20 05/11/18 07:13 BP 122/81 05/11/18 07:00 Pulse Ox 96 05/11/18 07:13 Intake & Output 05/10/18 05/11/18 05/11/18 18:59 06:59 18:59 Intake Total 1450 Output Total 367 1150 Balance 1083 -1150 Weight (lbs) 91.2 kg 91.172 kg Intake: Intake, IV Amount 150 Levofloxacin 750mg/150mL 150 750 mg In 150 ml @ 100 mls/hr IV Q24H [facility] Rx#: [id number] Oral 1300 Output: Chest Tube Drainage 17 Right Anterior Chest 17 Urine 350 1150 Emesis 0 Other: # Voids 2 4 # Bowel Movements 1 Stool Characteristics Formed Brown Weight Source Bedscale Bedscale Active Medications: Current Medications Acetaminophen (Tylenol) 650 mg PO Q6H PRN PRN Reason: Pain or Fever >101 Stop: 07/07/18 19:45 Last Admin: 05/10/18 02:44 Dose: 650 mg Albuterol/Ipratropium (Duoneb Neb) 3 ml HHN Q6HRT [facility] Stop: 07/08/18 18:59 Last Admin: 05/11/18 07:12 Dose: 3 ml Amlodipine Besylate (Norvasc) 10 mg PO DAILY [facility] Stop: 07/08/18 08:59 Last Admin: 05/10/18 09:16 Dose: 10 mg Aspirin (Aspirin) 325 mg PO DAILY [facility] Stop: 07/08/18 08:59 Last Admin: 05/10/18 09:16 Dose: 325 mg Hydrochlorothiazide (Hctz) 25 mg PO DAILY [facility] Stop: 07/08/18 08:59 Last Admin: 05/10/18 09:16 Dose: 25 mg Hydromorphone HCl (Dilaudid) 2 mg IVP Q4HR PRN PRN Reason: Severe Pain Stop: 07/08/18 15:20 Last Admin: 05/11/18 06:01 Dose: 2 mg Levofloxacin (Levaquin Pb) 750 mg in 150 mls @ 100 mls/hr IV Q24H [facility] Stop: 07/08/18 10:59 Last Infusion: 05/10/18 11:35 Dose: Infused Dextrose/Sodium Chloride (D5-0.9%Ns) 1,000 mls @ 100 mls/hr IV .Q10H [facility] Stop: 07/10/18 06:59 Last Admin: 05/11/18 07:04 Dose: 100 mls/hr Potassium Chloride (Potassium Chloride) 20 meq in 100 mls @ 50 mls/hr IV X1 [facility] Stop: 05/11/18 09:41 Last Admin: 05/11/18 08:23 Dose: 50 mls/hr Ondansetron HCl (Zofran Odt) 4 mg PO Q6H PRN PRN Reason: Nausea / Vomiting Stop: 07/08/18 17:28 Temazepam (Restoril) 15 mg PO HS PRN; Protocol PRN Reason: Insomnia Stop: 07/08/18 17:28 Last Admin: 05/10/18 00:16 Dose: 15 mg General: Alert, Oriented x3, Cooperative, No acute distress HEENT: Atraumatic Neck: Supple Cardiovascular: Regular rate Lungs: Other (No air entry in right lung, with a chest tube in right hemithorax. ) Abdomen: Bowel sounds, Soft Extremities: Other (No edema) Neurological: Normal gait Skin: Other (Warm and dry) Psych/Mental Status: Mental status NL - Procedures Procedures: Procedures Procedure Code Date DRAINAGE OF R PLEURAL CAV WITH DRAIN DEV, OPEN APPROACH [id number] 05/08/18 Assessment/Plan - Assessment Assessment: Patient is awake, alert, calm in no acute distress, CXR shows improving of Pneumothorax. Dx:Pneumothorax, HTN, Dyslipemia. - Plan Plan: Patient is going to have pulmonary surgery today. Chest tub in place. Seen by pulmonology and Surgery. Will continue to monitor.
--- NOTE | 2018-05-11 08:55 | Diagnostic Imaging Report ---
Portable chest x-ray Time: 0743 hours History: Shortness of breath Portable positioning chest at 0743 hours reviewed and compared to prior examination of the earlier demonstrates unchanged position of right chest tube. There is no evidence for pneumothorax. Mild left basilar atelectasis is noted. Allowing for portable technique the heart size is normal. No focal pulmonary parenchymal processes. No hilar or mediastinal abnormalities. Impression: No acute abnormalities.
--- NOTE | 2018-05-11 10:16 | General Progress Note ---
Subjective - Review of Systems Service Date: 05/11/18 Events since last encounter: history of smoking from age 13 (?) until 10 years ago when he was in [facility], following release he started vaping CT scan bulla THONG, shown results to patient and informed consent and options discussed including transfer to another facility Procedule: VATS with THONG bullaectomy and application of sealant, pros and cons pleurodesis discussed other option is to simply allow for lung to stay expanded with suction and no pleurodesis introduction (doxycycline) patient and to decide Objective - Results Result Diagrams: 05/11/18 05:00 05/11/18 05:00 Recent Labs: Laboratory Last Values WBC 6.4 Th/cmm (4.8-10.8) 05/11/18 05:00 RBC 5.26 Mil/cmm (4.30-5.70) 05/11/18 05:00 Hgb 14.9 gm/dL (12-16) 05/11/18 05:00 Hct 45.4 % (41.0-60) 05/11/18 05:00 MCV 86.2 fl (80-99) 05/11/18 05:00 MCH 28.3 pg (26.0-30.0) 05/11/18 05:00 MCHC Differential 32.8 pg (28.0-36.0) 05/11/18 05:00 RDW 12.4 % (11.5-20.0) 05/11/18 05:00 Plt Count 303 Th/cmm (150-400) 05/11/18 05:00 MPV 8.3 fl 05/11/18 05:00 Neutrophils % 45.6 % (40.0-80.0) 05/11/18 05:00 Lymphocytes % 42.0 % (20.0-50.0) 05/11/18 05:00 Monocytes % 7.5 % (2.0-10.0) 05/11/18 05:00 Eosinophils % 4.6 % (0.0-5.0) 05/11/18 05:00 Basophils % 0.3 % (0.0-2.0) 05/11/18 05:00 PT 9.9 SECONDS (9.5-11.5) 05/11/18 05:00 INR 0.95 (0.5-1.4) 05/11/18 05:00 PTT (Actin FS) 28.1 SECONDS (26.0-38.0) 05/11/18 05:00 D-Dimer 147 ng/mL (100-400) 05/08/18 17:05 Sodium 135 mEq/L (136-145) L 05/11/18 05:00 Potassium 3.4 mEq/L (3.5-5.1) L 05/11/18 05:00 Chloride 98 mEq/L (98-107) 05/11/18 05:00 Carbon Dioxide 30.1 mEq/L (21.0-31.0) 05/11/18 05:00 Anion Gap 10.3 (7.0-16.0) 05/11/18 05:00 BUN 15 mg/dL (7-25) 05/11/18 05:00 Creatinine 1.3 mg/dL (0.7-1.3) 05/11/18 05:00 Est GFR ( Amer) > 60.0 ml/min (>90) 05/11/18 05:00 Est GFR (Non-Af Amer) > 60.0 ml/min 05/11/18 05:00 BUN/Creatinine Ratio 11.5 05/11/18 05:00 Glucose 99 mg/dL (70-105) 05/11/18 05:00 POC Glucose 107 MG/DL (70 - 105) H 05/08/18 21:51 Calcium 9.0 mg/dL (8.6-10.3) 05/11/18 05:00 Total Bilirubin 0.5 mg/dL (0.3-1.0) 05/11/18 05:00 AST 17 U/L (13-39) 05/11/18 05:00 ALT 17 U/L (7-52) 05/11/18 05:00 Alkaline Phosphatase 70 U/L (34-104) 05/11/18 05:00 Creatine Kinase 190 U/L (30-223) 05/08/18 17:05 Troponin I < 0.01 ng/mL (0.01-0.05) L 05/09/18 05:50 B-Natriuretic Peptide < 5.0 pg/mL (5.0-100.0) L 05/08/18 17:05 Total Protein 7.6 gm/dL (6.0-8.3) 05/11/18 05:00 Albumin 4.1 gm/dL (4.2-5.5) L 05/11/18 05:00 Globulin 3.5 gm/dL 05/11/18 05:00 Albumin/Globulin Ratio 1.2 (1.0-1.8) 05/11/18 05:00 Triglycerides 123 mg/dL (<150) 05/08/18 17:05 Cholesterol 223 mg/dL (<200) H 05/08/18 17:05 LDL Cholesterol Direct 146 mg/dL (75-193) 05/08/18 17:05 HDL Cholesterol 56 mg/dL (23-92) 05/08/18 17:05 Blood Type O POSITIVE 05/11/18 05:00 Antibody Screen NEGATIVE 05/11/18 05:00 - Physical Exam Vitals and I&O: Vital Signs Temp 97.6 F 05/11/18 08:00 Pulse 78 05/11/18 09:00 Resp 16 05/11/18 09:00 BP 123/96 05/11/18 09:00 Pulse Ox 96 05/11/18 09:00 Intake & Output 05/10/18 05/11/18 05/11/18 18:59 06:59 18:59 Intake Total 1450 100 Output Total 367 1150 Balance 1083 -1050 Weight (lbs) 91.2 kg 91.172 kg Intake: Intake, IV Amount 150 100 KCL 20mEq/100mL Premix 20 100 meq In 100 ml @ 50 mls/ hr IV X1 [facility] Rx#: [id number] Levofloxacin 750mg/150mL 150 750 mg In 150 ml @ 100 mls/hr IV Q24H [facility] Rx#: [id number] Oral 1300 Output: Chest Tube Drainage 17 Right Anterior Chest 17 Urine 350 1150 Emesis 0 Other: # Voids 2 4 # Bowel Movements 1 Stool Characteristics Formed Brown Weight Source Bedscale Bedscale Active Medications: Current Medications Acetaminophen (Tylenol) 650 mg PO Q6H PRN PRN Reason: Pain or Fever >101 Stop: 07/07/18 19:45 Last Admin: 05/10/18 02:44 Dose: 650 mg Albuterol/Ipratropium (Duoneb Neb) 3 ml HHN Q6HRT [facility] Stop: 07/08/18 18:59 Last Admin: 06/15/18 07:12 Dose: 3 ml Amlodipine Besylate (Norvasc) 10 mg PO DAILY [facility] Stop: 07/08/18 08:59 Last Admin: 05/10/18 09:16 Dose: 10 mg Aspirin (Aspirin) 325 mg PO DAILY [facility] Stop: 07/08/18 08:59 Last Admin: 05/10/18 09:16 Dose: 325 mg Hydrochlorothiazide (Hctz) 25 mg PO DAILY [facility] Stop: 07/08/18 08:59 Last Admin: 05/10/18 09:16 Dose: 25 mg Hydromorphone HCl (Dilaudid) 2 mg IVP Q4HR PRN PRN Reason: Severe Pain Stop: 07/08/18 15:20 Last Admin: 05/11/18 06:01 Dose: 2 mg Levofloxacin (Levaquin Pb) 750 mg in 150 mls @ 100 mls/hr IV Q24H [facility] Stop: 07/08/18 10:59 Last Infusion: 05/10/18 11:35 Dose: Infused Dextrose/Sodium Chloride (D5-0.9%Ns) 1,000 mls @ 100 mls/hr IV .Q10H [facility] Stop: 07/10/18 06:59 Last Admin: 05/11/18 07:04 Dose: 100 mls/hr Ondansetron HCl (Zofran Odt) 4 mg PO Q6H PRN PRN Reason: Nausea / Vomiting Stop: 07/08/18 17:28 Temazepam (Restoril) 15 mg PO HS PRN; Protocol PRN Reason: Insomnia Stop: 07/08/18 17:28 Last Admin: 05/10/18 00:16 Dose: 15 mg General: Alert, Oriented x3, Cooperative, No acute distress HEENT: Atraumatic Neck: Supple Cardiovascular: Regular rate Lungs: Other (No air entry in right lung, with a chest tube in right hemithorax. ) Abdomen: Bowel sounds, Soft Extremities: Other (No edema) Neurological: Normal gait Skin: Other (Warm and dry) Psych/Mental Status: Mental status NL - Procedures Procedures: Procedures Procedure Code Date DRAINAGE OF R PLEURAL CAV WITH DRAIN DEV, OPEN APPROACH [id number] 05/08/18
[2018-05-11] MEDS: Levofloxacin 750mg/150mL 750 MG/150 ML BAG IV SCH (10:32)
--- NOTE | 2018-05-11 14:13 | Cardiology ---
05/10/[address] Lester. M-MODE ECHOCARDIOGRAM: Mitral valve, anterior leaflet of mitral valve shows normal excursion, EF velocity. Posterior leaflet of mitral valve shows normal excursion. Left ventricular posterior wall shows increased thickness, normal excursion. Interventricular septum shows increased thickness, normal excursion, hypertrophy of the left ventricle, ejection fraction 67%. Left atrium normal. Aortic root shows normal dimension, normal excursion of aortic leaflets. CONCLUSION: Hypertrophy of the left ventricle, ejection fraction 67%. 2D ECHO ON THE SAME PATIENT: Long axis view showed normal-sized left ventricle with hypertrophy of the left ventricle. Left atrium normal. Aortic root shows normal dimension, normal excursion of aortic leaflets. Short axis view of mitral valve normal. Short axis view of aortic valve normal. Apical four chamber view showed normal-sized left ventricle, left atrium, right ventricle, right atrium, tricuspid and mitral valve. Ejection fraction 62%. CONCLUSION: Normal 2D echo, hypertrophy of the left ventricle, ejection fraction 62%. Doppler study shows trace mitral regurgitation, trace tricuspid regurgitation. JOB# [id number]
[2018-05-12] MEDS: HYDROmorphone 2 mg/mL 1mL Vial IVP PRN ×6 (00:41→22:42)
[2018-05-12] MEDS: Albuterol/Ipratropium Neb 3 ML AERS HHN SCH ×4 (00:58→18:48)
[2018-05-12] MEDS: D5-0.9%NS 1,000 ML IV SCH ×2 (03:00→13:37)
[2018-05-12 05:10] LABS: % BASOPHILS 0.7 % (0.0-2.0); % EOSINOPHILS 6.3 % (0.0-5.0); % LYMPHOCYTES 46.2 % (20.0-50.0); % MONOCYTES 10.4 % (2.0-10.0); % NEUTROPHILS 36.4 % (40.0-80.0); EOSINOPHILE ABSOLUTE 0.3 Th/cmm (0.1-0.4); HEMATOCRIT 40.3 % (41.0-60); HEMOGLOBIN 13.3 gm/dL (12-16); LYMPHOCYTE ABSOLUTE 2.6 Th/cmm (1.5-3.0); MEAN CELL VOLUME 88.1 fl (80-99); MEAN CORPUSCULAR HGB CONC 32.9 pg (28.0-36.0); MEAN PLATELET VOLUME 8.1 fl; MONOCYTE ABSOLUTE 0.6 Th/cmm (0.3-1.0); PLATELET COUNT 258 Th/cmm (150-400); RED BLOOD COUNT 4.58 Mil/cmm (4.30-5.70); RED CELL DISTRIBUTION WIDTH 12.9 % (11.5-20.0); WHITE BLOOD COUNT 5.5 Th/cmm (4.8-10.8)
[2018-05-12 05:37] LABS: ALB/GLOB RATIO 1.2 (1.0-1.8); ALBUMIN 3.6 gm/dL (4.2-5.5); ALKALINE PHOSPHATASE 60 U/L (34-104); ANION GAP 9.1 (7.0-16.0); BILIRUBIN,TOTAL 0.4 mg/dL (0.3-1.0); BUN - UREA NITROGEN 10 mg/dL (7-25); CALCIUM SERUM 8.5 mg/dL (8.6-10.3); CARBON DIOXIDE 29.3 mEq/L (21.0-31.0); CHLORIDE 102 mEq/L (98-107); CREATININE - SERUM 1.2 mg/dL (0.7-1.3); GFR AFRICAN-AMERICAN > 60.0 ml/min (>90); GFR NON AFRICAN-AMERICAN > 60.0 ml/min; GLUCOSE 94 mg/dL (70-105); POTASSIUM SERUM 3.4 mEq/L (3.5-5.1); SGOT 16 U/L (13-39); SGPT/ALT 13 U/L (7-52); SODIUM SERUM 137 mEq/L (136-145); TOTAL PROTEIN,SERUM 6.6 gm/dL (6.0-8.3)
[2018-05-12] MEDS ORDERED: Potassium Chloride 20 mEq ER Tab PO ONE (10:04)
--- NOTE | 2018-05-12 10:09 | General Progress Note ---
Subjective - Review of Systems Service Date: 05/12/18 Events since last encounter: no air leak, stop suction xray this afternoon Objective - Results Result Diagrams: 05/12/18 04:55 05/12/18 04:55 Recent Labs: Laboratory Last Values WBC 5.5 Th/cmm (4.8-10.8) 05/12/18 04:55 RBC 4.58 Mil/cmm (4.30-5.70) 05/12/18 04:55 Hgb 13.3 gm/dL (12-16) 05/12/18 04:55 Hct 40.3 % (41.0-60) L D 05/12/18 04:55 MCV 88.1 fl (80-99) 05/12/18 04:55 MCH 29.0 pg (26.0-30.0) 05/12/18 04:55 MCHC Differential 32.9 pg (28.0-36.0) 05/12/18 04:55 RDW 12.9 % (11.5-20.0) 05/12/18 04:55 Plt Count 258 Th/cmm (150-400) 05/12/18 04:55 MPV 8.1 fl 05/12/18 04:55 Neutrophils % 36.4 % (40.0-80.0) L 05/12/18 04:55 Lymphocytes % 46.2 % (20.0-50.0) 05/12/18 04:55 Monocytes % 10.4 % (2.0-10.0) H 05/12/18 04:55 Eosinophils % 6.3 % (0.0-5.0) H 05/12/18 04:55 Basophils % 0.7 % (0.0-2.0) 05/12/18 04:55 PT 9.9 SECONDS (9.5-11.5) 05/11/18 05:00 INR 0.95 (0.5-1.4) 05/11/18 05:00 PTT (Actin FS) 28.1 SECONDS (26.0-38.0) 05/11/18 05:00 D-Dimer 147 ng/mL (100-400) 05/08/18 17:05 Sodium 137 mEq/L (136-145) 05/12/18 04:55 Potassium 3.4 mEq/L (3.5-5.1) L 05/12/18 04:55 Chloride 102 mEq/L (98-107) 05/12/18 04:55 Carbon Dioxide 29.3 mEq/L (21.0-31.0) 05/12/18 04:55 Anion Gap 9.1 (7.0-16.0) 05/12/18 04:55 BUN 10 mg/dL (7-25) 05/12/18 04:55 Creatinine 1.2 mg/dL (0.7-1.3) 05/12/18 04:55 Est GFR ( Amer) > 60.0 ml/min (>90) 05/12/18 04:55 Est GFR (Non-Af Amer) > 60.0 ml/min 05/12/18 04:55 BUN/Creatinine Ratio 8.3 05/12/18 04:55 Glucose 94 mg/dL (70-105) 05/12/18 04:55 POC Glucose 107 MG/DL (70 - 105) H 05/08/18 21:51 Calcium 8.5 mg/dL (8.6-10.3) L 05/12/18 04:55 Total Bilirubin 0.4 mg/dL (0.3-1.0) 05/12/18 04:55 AST 16 U/L (13-39) 05/12/18 04:55 ALT 13 U/L (7-52) 05/12/18 04:55 Alkaline Phosphatase 60 U/L (34-104) 05/12/18 04:55 Creatine Kinase 190 U/L (30-223) 05/08/18 17:05 Troponin I < 0.01 ng/mL (0.01-0.05) L 05/09/18 05:50 B-Natriuretic Peptide < 5.0 pg/mL (5.0-100.0) L 05/08/18 17:05 Total Protein 6.6 gm/dL (6.0-8.3) 05/12/18 04:55 Albumin 3.6 gm/dL (4.2-5.5) L 05/12/18 04:55 Globulin 3.0 gm/dL 05/12/18 04:55 Albumin/Globulin Ratio 1.2 (1.0-1.8) 05/12/18 04:55 Triglycerides 123 mg/dL (<150) 05/08/18 17:05 Cholesterol 223 mg/dL (<200) H 05/08/18 17:05 LDL Cholesterol Direct 146 mg/dL (75-193) 05/08/18 17:05 HDL Cholesterol 56 mg/dL (23-92) 05/08/18 17:05 Blood Type O POSITIVE 05/11/18 05:00 Antibody Screen NEGATIVE 05/11/18 05:00 - Physical Exam Vitals and I&O: Vital Signs Temp 97.7 F 05/12/18 04:00 Pulse 94 05/12/18 09:26 Resp 12 05/12/18 07:42 BP 131/68 05/12/18 09:26 Pulse Ox 94 05/12/18 07:42 Intake & Output 05/11/18 05/12/18 05/12/18 18:59 06:59 18:59 Intake Total 2200 2011.667 Output Total 1500 800 Balance 700 1211.667 Weight (lbs) 89.63 kg 90.265 kg Intake: Intake, IV Amount 1250 1111.667 D5-0.9%Ns 1,000 ml @ 100 1000 1111.667 mls/hr IV .Q10H [facility] Rx#: [id number] KCL 20mEq/100mL Premix 20 100 meq In 100 ml @ 50 mls/ hr IV X1 [facility] Rx#: [id number] Levofloxacin 750mg/150mL 150 750 mg In 150 ml @ 100 mls/hr IV Q24H [facility] Rx#: [id number] Oral 950 900 Output: Urine 1500 800 Emesis 0 Other: # Voids 4 # Bowel Movements 1 0 Weight Source Bedscale Bedscale Active Medications: Current Medications Acetaminophen (Tylenol) 650 mg PO Q6H PRN PRN Reason: Pain or Fever >101 Stop: 07/07/18 19:45 Last Admin: 05/10/18 02:44 Dose: 650 mg Albuterol/Ipratropium (Duoneb Neb) 3 ml HHN Q6HRT [facility] Stop: 07/08/18 18:59 Last Admin: 05/12/18 07:39 Dose: 3 ml Amlodipine Besylate (Norvasc) 10 mg PO DAILY [facility] Stop: 07/08/18 08:59 Last Admin: 05/12/18 09:26 Dose: 10 mg Aspirin (Aspirin) 325 mg PO DAILY [facility] Stop: 07/08/18 08:59 Last Admin: 05/12/18 09:26 Dose: 325 mg Hydrochlorothiazide (Hctz) 25 mg PO DAILY [facility] Stop: 07/08/18 08:59 Last Admin: 05/12/18 09:26 Dose: 25 mg Hydromorphone HCl (Dilaudid) 2 mg IVP Q4HR PRN PRN Reason: Severe Pain Stop: 07/08/18 15:20 Last Admin: 05/12/18 09:26 Dose: 2 mg Levofloxacin (Levaquin Pb) 750 mg in 150 mls @ 100 mls/hr IV Q24H [facility] Stop: 07/08/18 10:59 Last Infusion: 05/11/18 12:05 Dose: Infused Dextrose/Sodium Chloride (D5-0.9%Ns) 1,000 mls @ 100 mls/hr IV .Q10H [facility] Stop: 07/10/18 06:59 Last Infusion: 05/12/18 06:00 Dose: 100 mls/hr Ondansetron HCl (Zofran Odt) 4 mg PO Q6H PRN PRN Reason: Nausea / Vomiting Stop: 07/08/18 17:28 Temazepam (Restoril) 15 mg PO HS PRN; Protocol PRN Reason: Insomnia Stop: 07/08/18 17:28 Last Admin: 05/11/18 23:04 Dose: 15 mg General: Alert, Oriented x3, Cooperative, No acute distress HEENT: Atraumatic Neck: Supple Cardiovascular: Regular rate Lungs: Other (No air entry in right lung, with a chest tube in right hemithorax. ) Abdomen: Bowel sounds, Soft Extremities: Other (No edema) Neurological: Normal gait Skin: Other (Warm and dry) Psych/Mental Status: Mental status NL - Procedures Procedures: Procedures Procedure Code Date DRAINAGE OF R PLEURAL CAV WITH DRAIN DEV, OPEN APPROACH [id number] 05/08/18 Nutritional Asmnt/Malnutr-PDOC - Dietary Evaluation Malnutrition Findings (Please click <Entered> for more info): Nutritional Asmnt/Malnutrition Start: 05/11/18 16: 42 Text: Status: Complete Freq: Protocol: Document 05/11/18 16:48 DIANA (Rec: 05/11/18 16:53 DIANA [email or web address]) Nutritional Asmnt/Malnutrition Patient General Information Nutritional Screening Moderate Risk Diagnosis atypical chest pain Pertinent Medical Hx/Surgical Hx HTN Subjective Information pt was NPO today for possible sugery bullectomy. Per nurse note, surgery is rescheduled on Monday. Per EMR, PO intake was 100%. Current Diet Order/ Nutrition Support cardiac Pertinent Medications D5-0.9%ns, levaquin Pertinent Labs 05/11 Na 135, K 3.4, glucose 99 Nutritional Hx/Data Height 1.75 m Height (Calculated Centimeters) 175.3 Current Weight (lbs) 91.172 kg Weight (Calculated Kilograms) 91.2 Weight (Calculated Grams) 22889.1 [place] Body Weight 160 Body Mass Index (BMI) 29.7 Weight Status Overweight GI Symptoms GI Symptoms None Last BM 05/11 Difficult in: None Skin Integrity/Comment: intact Current %PO Good (75-100%) Estimated Nutritional Goals BEE in Kcals: Adj wt of IBW Calories/Kcals/Kg 25-30 Kcals Calculated 2523-5028 Protein: Adj wt of IBW Protein g/k Protein Calculated 73 Fluid: ml 1925-2310ml (1ml/kcal) Nutritional Problem No current Nutrition Prob Problem N/A Malnutrition Alert Is there a minimum of two criteria No selected? Query Text:Check all the applicable criteria. A minimum of two criteria are recommended for diagnosis of either severe or non-severe malnutrition. Malnutrition Related to Morbid Obesity Malnutrition related to morbid obesity No Intervention/Recommendation Comments 1. Continue with current diet as ordered. 2. Monitor PO intake, wt, labs and skin integrity 3. F/U as moderate risk in 3-5 days, 05/14-05/16 Expected Outcomes/Goals Expected Outcomes/Goals 1. PO intake to meet at least 75% of nutritional needs. 2. Wt stability, skin to remain intact, labs to approach WNL.
[2018-05-12] MEDS: Levofloxacin 750mg/150mL 750 MG/150 ML BAG IV SCH (10:30)
--- NOTE | 2018-05-12 11:03 | General Progress Note ---
Subjective - Review of Systems Service Date: 05/12/18 Subjective: I am fine Objective - Results Result Diagrams: 05/12/18 04:55 05/12/18 04:55 Recent Labs: Laboratory Last Values WBC 5.5 Th/cmm (4.8-10.8) 05/12/18 04:55 RBC 4.58 Mil/cmm (4.30-5.70) 05/12/18 04:55 Hgb 13.3 gm/dL (12-16) 05/12/18 04:55 Hct 40.3 % (41.0-60) L D 05/12/18 04:55 MCV 88.1 fl (80-99) 05/12/18 04:55 MCH 29.0 pg (26.0-30.0) 05/12/18 04:55 MCHC Differential 32.9 pg (28.0-36.0) 05/12/18 04:55 RDW 12.9 % (11.5-20.0) 05/12/18 04:55 Plt Count 258 Th/cmm (150-400) 05/12/18 04:55 MPV 8.1 fl 05/12/18 04:55 Neutrophils % 36.4 % (40.0-80.0) L 05/12/18 04:55 Lymphocytes % 46.2 % (20.0-50.0) 05/12/18 04:55 Monocytes % 10.4 % (2.0-10.0) H 05/12/18 04:55 Eosinophils % 6.3 % (0.0-5.0) H 05/12/18 04:55 Basophils % 0.7 % (0.0-2.0) 05/12/18 04:55 PT 9.9 SECONDS (9.5-11.5) 05/11/18 05:00 INR 0.95 (0.5-1.4) 05/11/18 05:00 PTT (Actin FS) 28.1 SECONDS (26.0-38.0) 05/11/18 05:00 D-Dimer 147 ng/mL (100-400) 05/08/18 17:05 Sodium 137 mEq/L (136-145) 05/12/18 04:55 Potassium 3.4 mEq/L (3.5-5.1) L 05/12/18 04:55 Chloride 102 mEq/L (98-107) 05/12/18 04:55 Carbon Dioxide 29.3 mEq/L (21.0-31.0) 05/12/18 04:55 Anion Gap 9.1 (7.0-16.0) 05/12/18 04:55 BUN 10 mg/dL (7-25) 05/12/18 04:55 Creatinine 1.2 mg/dL (0.7-1.3) 05/12/18 04:55 Est GFR ( Amer) > 60.0 ml/min (>90) 05/12/18 04:55 Est GFR (Non-Af Amer) > 60.0 ml/min 05/12/18 04:55 BUN/Creatinine Ratio 8.3 05/12/18 04:55 Glucose 94 mg/dL (70-105) 05/12/18 04:55 POC Glucose 107 MG/DL (70 - 105) H 05/08/18 21:51 Calcium 8.5 mg/dL (8.6-10.3) L 05/12/18 04:55 Total Bilirubin 0.4 mg/dL (0.3-1.0) 05/12/18 04:55 AST 16 U/L (13-39) 05/12/18 04:55 ALT 13 U/L (7-52) 05/12/18 04:55 Alkaline Phosphatase 60 U/L (34-104) 05/12/18 04:55 Creatine Kinase 190 U/L (30-223) 05/08/18 17:05 Troponin I < 0.01 ng/mL (0.01-0.05) L 05/09/18 05:50 B-Natriuretic Peptide < 5.0 pg/mL (5.0-100.0) L 05/08/18 17:05 Total Protein 6.6 gm/dL (6.0-8.3) 05/12/18 04:55 Albumin 3.6 gm/dL (4.2-5.5) L 05/12/18 04:55 Globulin 3.0 gm/dL 05/12/18 04:55 Albumin/Globulin Ratio 1.2 (1.0-1.8) 05/12/18 04:55 Triglycerides 123 mg/dL (<150) 05/08/18 17:05 Cholesterol 223 mg/dL (<200) H 05/08/18 17:05 LDL Cholesterol Direct 146 mg/dL (75-193) 05/08/18 17:05 HDL Cholesterol 56 mg/dL (23-92) 05/08/18 17:05 Blood Type O POSITIVE 05/11/18 05:00 Antibody Screen NEGATIVE 05/11/18 05:00 - Physical Exam Vitals and I&O: Vital Signs Temp 97.9 F 05/12/18 10:00 Pulse 80 05/12/18 10:00 Resp 20 05/12/18 10:00 BP 137/89 05/12/18 10:00 Pulse Ox 94 05/12/18 10:00 Intake & Output 05/11/18 05/12/18 05/12/18 18:59 06:59 18:59 Intake Total 2200 2011.667 Output Total 1500 800 Balance 700 1211.667 Weight (lbs) 89.63 kg 90.265 kg Intake: Intake, IV Amount 1250 1111.667 D5-0.9%Ns 1,000 ml @ 100 1000 1111.667 mls/hr IV .Q10H [facility] Rx#: [id number] KCL 20mEq/100mL Premix 20 100 meq In 100 ml @ 50 mls/ hr IV X1 ONE Rx#: [id number] Levofloxacin 750mg/150mL 150 750 mg In 150 ml @ 100 mls/hr IV Q24H [facility] Rx#: [id number] Oral 950 900 Output: Urine 1500 800 Emesis 0 Other: # Voids 4 # Bowel Movements 1 0 Weight Source Bedscale Bedscale Active Medications: Current Medications Acetaminophen (Tylenol) 650 mg PO Q6H PRN PRN Reason: Pain or Fever >101 Stop: 07/07/18 19:45 Last Admin: 05/10/18 02:44 Dose: 650 mg Albuterol/Ipratropium (Duoneb Neb) 3 ml HHN Q6HRT [facility] Stop: 07/08/18 18:59 Last Admin: 05/12/18 07:39 Dose: 3 ml Amlodipine Besylate (Norvasc) 10 mg PO DAILY [facility] Stop: 07/08/18 08:59 Last Admin: 05/12/18 09:26 Dose: 10 mg Aspirin (Aspirin) 325 mg PO DAILY [facility] Stop: 07/08/18 08:59 Last Admin: 05/12/18 09:26 Dose: 325 mg Hydrochlorothiazide (Hctz) 25 mg PO DAILY [facility] Stop: 07/08/18 08:59 Last Admin: 05/12/18 09:26 Dose: 25 mg Hydromorphone HCl (Dilaudid) 2 mg IVP Q4HR PRN PRN Reason: Severe Pain Stop: 07/08/18 15:20 Last Admin: 05/12/18 09:26 Dose: 2 mg Levofloxacin (Levaquin Pb) 750 mg in 150 mls @ 100 mls/hr IV Q24H [facility] Stop: 07/08/18 10:59 Last Admin: 05/12/18 10:30 Dose: 100 mls/hr Dextrose/Sodium Chloride (D5-0.9%Ns) 1,000 mls @ 100 mls/hr IV .Q10H [facility] Stop: 07/10/18 06:59 Last Infusion: 05/12/18 06:00 Dose: 100 mls/hr Ondansetron HCl (Zofran Odt) 4 mg PO Q6H PRN PRN Reason: Nausea / Vomiting Stop: 07/08/18 17:28 Temazepam (Restoril) 15 mg PO HS PRN; Protocol PRN Reason: Insomnia Stop: 07/08/18 17:28 Last Admin: 05/11/18 23:04 Dose: 15 mg General: Alert, Oriented x3, Cooperative, No acute distress HEENT: Atraumatic Neck: Supple Cardiovascular: Regular rate Lungs: Other (No air entry in right lung, with a chest tube in right hemithorax. ) Abdomen: Bowel sounds, Soft Extremities: Other (No edema) Neurological: Normal gait Skin: Other (Warm and dry) Psych/Mental Status: Mental status NL - Procedures Procedures: Procedures Procedure Code Date DRAINAGE OF R PLEURAL CAV WITH DRAIN DEV, OPEN APPROACH [id number] 05/08/18 Assessment/Plan - Assessment Assessment: Patient is awake, alert, calm in no acute distress, CXR shows improving of Pneumothorax. Dx:Pneumothorax, HTN, Dyslipemia. - Plan Plan: Surgery is postpone. Continue with Chest tub in place. Seen by pulmonology and Surgery. Will continue to monitor. Nutritional Asmnt/Malnutr-PDOC - Dietary Evaluation Malnutrition Findings (Please click <Entered> for more info): Nutritional Asmnt/Malnutrition Start: 05/11/18 16: 42 Text: Status: Complete Freq: Protocol: Document 05/11/18 16:48 LCHENG (Rec: 05/11/18 16:53 [email or web address]) Nutritional Asmnt/Malnutrition Patient General Information Nutritional Screening Moderate Risk Diagnosis atypical chest pain Pertinent Medical Hx/Surgical Hx HTN Subjective Information pt was NPO today for possible sugery bullectomy. Per nurse note, surgery is rescheduled on Monday. Per EMR, PO intake was 100%. Current Diet Order/ Nutrition Support cardiac Pertinent Medications D5-0.9%ns, levaquin Pertinent Labs 05/11 Na 135, K 3.4, glucose 99 Nutritional Hx/Data Height 1.75 m Height (Calculated Centimeters) 175.3 Current Weight (lbs) 91.172 kg Weight (Calculated Kilograms) 91.2 Weight (Calculated Grams) 55018.1 [place] Body Weight 160 Body Mass Index (BMI) 29.7 Weight Status Overweight GI Symptoms GI Symptoms None Last BM 05/11 Difficult in: None Skin Integrity/Comment: intact Current %PO Good (75-100%) Estimated Nutritional Goals BEE in Kcals: Adj wt of IBW Calories/Kcals/Kg 25-30 Kcals Calculated 1132-2624 Protein: Adj wt of IBW Protein g/k Protein Calculated 73 Fluid: ml 1925-2310ml (1ml/kcal) Nutritional Problem No current Nutrition Prob Problem N/A Malnutrition Alert Is there a minimum of two criteria No selected? Query Text:Check all the applicable criteria. A minimum of two criteria are recommended for diagnosis of either severe or non-severe malnutrition. Malnutrition Related to Morbid Obesity Malnutrition related to morbid obesity No Intervention/Recommendation Comments 1. Continue with current diet as ordered. 2. Monitor PO intake, wt, labs and skin integrity 3. F/U as moderate risk in 3-5 days, 05/14-05/16 Expected Outcomes/Goals Expected Outcomes/Goals 1. PO intake to meet at least 75% of nutritional needs. 2. Wt stability, skin to remain intact, labs to approach WNL.
[2018-05-13] MEDS: Albuterol/Ipratropium Neb 3 ML AERS HHN SCH ×4 (00:31→18:56)
[2018-05-13 04:56] LABS: HEMATOCRIT 39.9 % (41.0-60); HEMOGLOBIN 13.3 gm/dL (12-16); MEAN CELL VOLUME 85.5 fl (80-99); MEAN CORPUSCULAR HEMOGLOBIN 28.6 pg (26.0-30.0); MEAN CORPUSCULAR HGB CONC 33.4 pg (28.0-36.0); MEAN PLATELET VOLUME 8.2 fl; PLATELET COUNT 272 Th/cmm (150-400); RED BLOOD COUNT 4.66 Mil/cmm (4.30-5.70); RED CELL DISTRIBUTION WIDTH 12.8 % (11.5-20.0); WHITE BLOOD COUNT 5.1 Th/cmm (4.8-10.8)
[2018-05-13 05:01] LABS: MANUAL DIFF REQUIRED? YES
[2018-05-13 05:10] LABS: ALB/GLOB RATIO 1.2 (1.0-1.8); ALBUMIN 3.7 gm/dL (4.2-5.5); ALKALINE PHOSPHATASE 62 U/L (34-104); ANION GAP 8.1 (7.0-16.0); BILIRUBIN,TOTAL 0.4 mg/dL (0.3-1.0); BUN - UREA NITROGEN 9 mg/dL (7-25); CARBON DIOXIDE 29.5 mEq/L (21.0-31.0); CHLORIDE 103 mEq/L (98-107); CREATININE - SERUM 1.2 mg/dL (0.7-1.3); GFR AFRICAN-AMERICAN > 60.0 ml/min (>90); GFR NON AFRICAN-AMERICAN > 60.0 ml/min; GLUCOSE 102 mg/dL (70-105); POTASSIUM SERUM 3.6 mEq/L (3.5-5.1); SGOT 17 U/L (13-39); SGPT/ALT 14 U/L (7-52); SODIUM SERUM 137 mEq/L (136-145); TOTAL PROTEIN,SERUM 6.7 gm/dL (6.0-8.3)
[2018-05-13 05:54] LABS: EOSINOPHIL 3 % (0-5); LYMPHOCYTE 54 % (20-50); MONOCYTE 7 % (2-10); NEUTROPHILS 36 % (40-80); PLATELET ESTIMATE ADEQUATE (NORMAL); TOTAL CELLS COUNTED 100
[2018-05-13] MEDS: D5-0.9%NS 1,000 ML IV SCH (06:00)
--- NOTE | 2018-05-13 08:59 | Diagnostic Imaging Report ---
Portable chest x-ray HISTORY: Shortness of breath Compared to prior exam of May 12, 2018, the heart size appears somewhat generous. Right chest tube noted and unchanged. No definite pneumothorax. IMPRESSION: 1. No change in the pulmonary status. No pneumothorax or other acute focal processes are seen.
--- NOTE | 2018-05-13 09:23 | Diagnostic Imaging Report ---
Portable chest x-ray HISTORY: This of breath, pneumothorax Compared with prior exam of May 11, 2018, right chest tube position unchanged. No definite pneumothorax is seen. No other acute pulmonary parenchymal processes. IMPRESSION: 1. No change in the pulmonary status. No change in right chest tube position. No definite pneumothorax defined at this time.
[2018-05-13] MEDS: HYDROmorphone 2 mg/mL 1mL Vial IVP PRN ×3 (10:11→21:11)
--- NOTE | 2018-05-13 10:13 | General Progress Note ---
Subjective - Review of Systems Service Date: 05/13/18 Events since last encounter: no air leak xray no pneumo repeat xray in AM, if ok my remove chest tube Objective - Results Result Diagrams: 05/13/18 04:45 05/13/18 04:45 Recent Labs: Laboratory Last Values WBC 5.1 Th/cmm (4.8-10.8) 05/13/18 04:45 RBC 4.66 Mil/cmm (4.30-5.70) 05/13/18 04:45 Hgb 13.3 gm/dL (12-16) 05/13/18 04:45 Hct 39.9 % (41.0-60) L 05/13/18 04:45 MCV 85.5 fl (80-99) 05/13/18 04:45 MCH 28.6 pg (26.0-30.0) 05/13/18 04:45 MCHC Differential 33.4 pg (28.0-36.0) 05/13/18 04:45 RDW 12.8 % (11.5-20.0) 05/13/18 04:45 Plt Count 272 Th/cmm (150-400) 05/13/18 04:45 MPV 8.2 fl 05/13/18 04:45 Neutrophils % 36.4 % (40.0-80.0) L 05/12/18 04:55 Lymphocytes % 46.2 % (20.0-50.0) 05/12/18 04:55 Monocytes % 10.4 % (2.0-10.0) H 05/12/18 04:55 Eosinophils % 6.3 % (0.0-5.0) H 05/12/18 04:55 Basophils % 0.7 % (0.0-2.0) 05/12/18 04:55 Neutrophils (Manual) 36 % (40-80) L 05/13/18 04:45 Lymphocytes 54 % (20-50) H 05/13/18 04:45 Monocytes 7 % (2-10) 05/13/18 04:45 Eosinophils 3 % (0-5) 05/13/18 04:45 Platelet Estimate ADEQUATE (NORMAL) 05/13/18 04:45 PT 9.9 SECONDS (9.5-11.5) 05/11/18 05:00 INR 0.95 (0.5-1.4) 05/11/18 05:00 PTT (Actin FS) 28.1 SECONDS (26.0-38.0) 05/11/18 05:00 D-Dimer 147 ng/mL (100-400) 05/08/18 17:05 Sodium 137 mEq/L (136-145) 05/13/18 04:45 Potassium 3.6 mEq/L (3.5-5.1) 05/13/18 04:45 Chloride 103 mEq/L (98-107) 05/13/18 04:45 Carbon Dioxide 29.5 mEq/L (21.0-31.0) 05/13/18 04:45 Anion Gap 8.1 (7.0-16.0) 05/13/18 04:45 BUN 9 mg/dL (7-25) 05/13/18 04:45 Creatinine 1.2 mg/dL (0.7-1.3) 05/13/18 04:45 Est GFR ( Amer) > 60.0 ml/min (>90) 05/13/18 04:45 Est GFR (Non-Af Amer) > 60.0 ml/min 05/13/18 04:45 BUN/Creatinine Ratio 7.5 05/13/18 04:45 Glucose 102 mg/dL (70-105) 05/13/18 04:45 POC Glucose 107 MG/DL (70 - 105) H 05/08/18 21:51 Calcium 9.0 mg/dL (8.6-10.3) 05/13/18 04:45 Total Bilirubin 0.4 mg/dL (0.3-1.0) 05/13/18 04:45 AST 17 U/L (13-39) 05/13/18 04:45 ALT 14 U/L (7-52) 05/13/18 04:45 Alkaline Phosphatase 62 U/L (34-104) 05/13/18 04:45 Creatine Kinase 190 U/L (30-223) 05/08/18 17:05 Troponin I < 0.01 ng/mL (0.01-0.05) L 05/09/18 05:50 B-Natriuretic Peptide < 5.0 pg/mL (5.0-100.0) L 05/08/18 17:05 Total Protein 6.7 gm/dL (6.0-8.3) 05/13/18 04:45 Albumin 3.7 gm/dL (4.2-5.5) L 05/13/18 04:45 Globulin 3.0 gm/dL 05/13/18 04:45 Albumin/Globulin Ratio 1.2 (1.0-1.8) 05/13/18 04:45 Triglycerides 123 mg/dL (<150) 05/08/18 17:05 Cholesterol 223 mg/dL (<200) H 05/08/18 17:05 LDL Cholesterol Direct 146 mg/dL (75-193) 05/08/18 17:05 HDL Cholesterol 56 mg/dL (23-92) 05/08/18 17:05 Blood Type O POSITIVE 05/11/18 05:00 Antibody Screen NEGATIVE 05/11/18 05:00 - Physical Exam Vitals and I&O: Vital Signs Temp 97.2 F 05/13/18 00:00 Pulse 79 05/13/18 10:10 Resp 18 05/13/18 07:56 BP 130/91 05/13/18 10:10 Pulse Ox 99 05/13/18 07:56 Intake & Output 05/12/18 05/13/18 05/13/18 18:59 06:59 18:59 Intake Total 2050 1300 Output Total 750 1600 Balance 1300 -300 Weight (lbs) 90.52 kg 90.52 kg Intake: Intake, IV Amount 850 1000 D5-0.9%Ns 1,000 ml @ 485 298 1873 mls/hr IV .Q10H [facility] Rx#: [id number] Levofloxacin 750mg/150mL 150 750 mg In 150 ml @ 100 mls/hr IV Q24H [facility] Rx#: [id number] Oral 1200 300 Output: Urine 750 1600 Urine/Stool Mix 0 0 Other: Weight Source Bedscale Bedscale Active Medications: Current Medications Acetaminophen (Tylenol) 650 mg PO Q6H PRN PRN Reason: Pain or Fever >101 Stop: 07/07/18 19:45 Last Admin: 05/10/18 02:44 Dose: 650 mg Albuterol/Ipratropium (Duoneb Neb) 3 ml HHN Q6HRT [facility] Stop: 07/08/18 18:59 Last Admin: 05/13/18 07:51 Dose: 3 ml Amlodipine Besylate (Norvasc) 10 mg PO DAILY [facility] Stop: 07/08/18 08:59 Last Admin: 05/13/18 10:10 Dose: 10 mg Aspirin (Aspirin) 325 mg PO DAILY [facility] Stop: 07/08/18 08:59 Last Admin: 05/13/18 10:10 Dose: 325 mg Hydrochlorothiazide (Hctz) 25 mg PO DAILY [facility] Stop: 07/08/18 08:59 Last Admin: 05/13/18 10:08 Dose: 25 mg Hydromorphone HCl (Dilaudid) 2 mg IVP Q4HR PRN PRN Reason: Severe Pain Stop: 07/08/18 15:20 Last Admin: 05/12/18 22:42 Dose: 2 mg Levofloxacin (Levaquin Pb) 750 mg in 150 mls @ 100 mls/hr IV Q24H [facility] Stop: 07/08/18 10:59 Last Infusion: 05/12/18 12:00 Dose: Infused Dextrose/Sodium Chloride (D5-0.9%Ns) 1,000 mls @ 100 mls/hr IV .Q10H [facility] Stop: 07/10/18 06:59 Last Infusion: 05/13/18 06:00 Dose: Infused Ondansetron HCl (Zofran Odt) 4 mg PO Q6H PRN PRN Reason: Nausea / Vomiting Stop: 07/08/18 17:28 Temazepam (Restoril) 15 mg PO HS PRN; Protocol PRN Reason: Insomnia Stop: 07/08/18 17:28 Last Admin: 05/11/18 23:04 Dose: 15 mg General: Alert, Oriented x3, Cooperative, No acute distress HEENT: Atraumatic Neck: Supple Cardiovascular: Regular rate Lungs: Other (No air entry in right lung, with a chest tube in right hemithorax. ) Abdomen: Bowel sounds, Soft Extremities: Other (No edema) Neurological: Normal gait Skin: Other (Warm and dry) Psych/Mental Status: Mental status NL - Procedures Procedures: Procedures Procedure Code Date DRAINAGE OF R PLEURAL CAV WITH DRAIN DEV, OPEN APPROACH [id number] 05/08/18 Nutritional Asmnt/Malnutr-PDOC - Dietary Evaluation Malnutrition Findings (Please click <Entered> for more info): Nutritional Asmnt/Malnutrition Start: 05/11/18 16: 42 Text: Status: Complete Freq: Protocol: Document 05/11/18 16:48 LCHENG (Rec: 05/11/18 16:53 [email or web address]) Nutritional Asmnt/Malnutrition Patient General Information Nutritional Screening Moderate Risk Diagnosis atypical chest pain Pertinent Medical Hx/Surgical Hx HTN Subjective Information pt was NPO today for possible sugery bullectomy. Per nurse note, surgery is rescheduled on Monday. Per EMR, PO intake was 100%. Current Diet Order/ Nutrition Support cardiac Pertinent Medications D5-0.9%ns, levaquin Pertinent Labs 05/11 Na 135, K 3.4, glucose 99 Nutritional Hx/Data Height 1.75 m Height (Calculated Centimeters) 175.3 Current Weight (lbs) 91.172 kg Weight (Calculated Kilograms) 91.2 Weight (Calculated Grams) 22883.1 [place] Body Weight 160 Body Mass Index (BMI) 29.7 Weight Status Overweight GI Symptoms GI Symptoms None Last BM 05/11 Difficult in: None Skin Integrity/Comment: intact Current %PO Good (75-100%) Estimated Nutritional Goals BEE in Kcals: Adj wt of IBW Calories/Kcals/Kg 25-30 Kcals Calculated 3948-0394 Protein: Adj wt of IBW Protein g/k Protein Calculated 73 Fluid: ml 1925-2310ml (1ml/kcal) Nutritional Problem No current Nutrition Prob Problem N/A Malnutrition Alert Is there a minimum of two criteria No selected? Query Text:Check all the applicable criteria. A minimum of two criteria are recommended for diagnosis of either severe or non-severe malnutrition. Malnutrition Related to Morbid Obesity Malnutrition related to morbid obesity No Intervention/Recommendation Comments 1. Continue with current diet as ordered. 2. Monitor PO intake, wt, labs and skin integrity 3. F/U as moderate risk in 3-5 days, 05/14-05/16 Expected Outcomes/Goals Expected Outcomes/Goals 1. PO intake to meet at least 75% of nutritional needs. 2. Wt stability, skin to remain intact, labs to approach WNL.
--- NOTE | 2018-05-13 11:43 | General Progress Note ---
Subjective - Review of Systems Service Date: 05/13/18 Subjective: I am fine Objective - Results Result Diagrams: 05/13/18 04:45 05/13/18 04:45 Recent Labs: Laboratory Last Values WBC 5.1 Th/cmm (4.8-10.8) 05/13/18 04:45 RBC 4.66 Mil/cmm (4.30-5.70) 05/13/18 04:45 Hgb 13.3 gm/dL (12-16) 05/13/18 04:45 Hct 39.9 % (41.0-60) L 05/13/18 04:45 MCV 85.5 fl (80-99) 05/13/18 04:45 MCH 28.6 pg (26.0-30.0) 05/13/18 04:45 MCHC Differential 33.4 pg (28.0-36.0) 05/13/18 04:45 RDW 12.8 % (11.5-20.0) 05/13/18 04:45 Plt Count 272 Th/cmm (150-400) 05/13/18 04:45 MPV 8.2 fl 05/13/18 04:45 Neutrophils % 36.4 % (40.0-80.0) L 05/12/18 04:55 Lymphocytes % 46.2 % (20.0-50.0) 05/12/18 04:55 Monocytes % 10.4 % (2.0-10.0) H 05/12/18 04:55 Eosinophils % 6.3 % (0.0-5.0) H 05/12/18 04:55 Basophils % 0.7 % (0.0-2.0) 05/12/18 04:55 Neutrophils (Manual) 36 % (40-80) L 05/13/18 04:45 Lymphocytes 54 % (20-50) H 05/13/18 04:45 Monocytes 7 % (2-10) 05/13/18 04:45 Eosinophils 3 % (0-5) 05/13/18 04:45 Platelet Estimate ADEQUATE (NORMAL) 05/13/18 04:45 PT 9.9 SECONDS (9.5-11.5) 05/11/18 05:00 INR 0.95 (0.5-1.4) 05/11/18 05:00 PTT (Actin FS) 28.1 SECONDS (26.0-38.0) 05/11/18 05:00 D-Dimer 147 ng/mL (100-400) 05/08/18 17:05 Sodium 137 mEq/L (136-145) 05/13/18 04:45 Potassium 3.6 mEq/L (3.5-5.1) 05/13/18 04:45 Chloride 103 mEq/L (98-107) 05/13/18 04:45 Carbon Dioxide 29.5 mEq/L (21.0-31.0) 05/13/18 04:45 Anion Gap 8.1 (7.0-16.0) 05/13/18 04:45 BUN 9 mg/dL (7-25) 05/13/18 04:45 Creatinine 1.2 mg/dL (0.7-1.3) 05/13/18 04:45 Est GFR ( Amer) > 60.0 ml/min (>90) 05/13/18 04:45 Est GFR (Non-Af Amer) > 60.0 ml/min 05/13/18 04:45 BUN/Creatinine Ratio 7.5 05/13/18 04:45 Glucose 102 mg/dL (70-105) 05/13/18 04:45 POC Glucose 107 MG/DL (70 - 105) H 05/08/18 21:51 Calcium 9.0 mg/dL (8.6-10.3) 05/13/18 04:45 Total Bilirubin 0.4 mg/dL (0.3-1.0) 05/13/18 04:45 AST 17 U/L (13-39) 05/13/18 04:45 ALT 14 U/L (7-52) 05/13/18 04:45 Alkaline Phosphatase 62 U/L (34-104) 05/13/18 04:45 Creatine Kinase 190 U/L (30-223) 05/08/18 17:05 Troponin I < 0.01 ng/mL (0.01-0.05) L 05/09/18 05:50 B-Natriuretic Peptide < 5.0 pg/mL (5.0-100.0) L 05/08/18 17:05 Total Protein 6.7 gm/dL (6.0-8.3) 05/13/18 04:45 Albumin 3.7 gm/dL (4.2-5.5) L 05/13/18 04:45 Globulin 3.0 gm/dL 05/13/18 04:45 Albumin/Globulin Ratio 1.2 (1.0-1.8) 05/13/18 04:45 Triglycerides 123 mg/dL (<150) 05/08/18 17:05 Cholesterol 223 mg/dL (<200) H 05/08/18 17:05 LDL Cholesterol Direct 146 mg/dL (75-193) 05/08/18 17:05 HDL Cholesterol 56 mg/dL (23-92) 05/08/18 17:05 Blood Type O POSITIVE 05/11/18 05:00 Antibody Screen NEGATIVE 05/11/18 05:00 - Physical Exam Vitals and I&O: Vital Signs Temp 97.2 F 05/13/18 00:00 Pulse 75 05/13/18 11:00 Resp 18 05/13/18 09:00 BP 137/89 05/13/18 11:00 Pulse Ox 99 05/13/18 07:56 Intake & Output 05/12/18 05/13/18 05/13/18 18:59 06:59 18:59 Intake Total 2050 1300 100 Output Total 750 1600 Balance 1300 -300 100 Weight (lbs) 90.52 kg 90.52 kg 90.52 kg Intake: Intake, IV Amount 850 1000 D5-0.9%Ns 1,000 ml @ 077 142 5519 mls/hr IV .Q10H [facility] Rx#: [id number] Levofloxacin 750mg/150mL 150 750 mg In 150 ml @ 100 mls/hr IV Q24H [facility] Rx#: [id number] Oral 1200 300 100 Output: Urine 750 1600 Urine/Stool Mix 0 0 Other: Weight Source Bedscale Bedscale Bedscale Active Medications: Current Medications Acetaminophen (Tylenol) 650 mg PO Q6H PRN PRN Reason: Pain or Fever >101 Stop: 07/07/18 19:45 Last Admin: 05/10/18 02:44 Dose: 650 mg Albuterol/Ipratropium (Duoneb Neb) 3 ml HHN Q6HRT [facility] Stop: 07/08/18 18:59 Last Admin: 05/13/18 07:51 Dose: 3 ml Amlodipine Besylate (Norvasc) 10 mg PO DAILY [facility] Stop: 07/08/18 08:59 Last Admin: 05/13/18 10:10 Dose: 10 mg Aspirin (Aspirin) 325 mg PO DAILY [facility] Stop: 07/08/18 08:59 Last Admin: 05/13/18 10:10 Dose: 325 mg Hydrochlorothiazide (Hctz) 25 mg PO DAILY [facility] Stop: 07/08/18 08:59 Last Admin: 05/13/18 10:08 Dose: 25 mg Hydromorphone HCl (Dilaudid) 2 mg IVP Q4HR PRN PRN Reason: Severe Pain Stop: 07/08/18 15:20 Last Admin: 05/13/18 10:11 Dose: 2 mg Levofloxacin (Levaquin Pb) 750 mg in 150 mls @ 100 mls/hr IV Q24H [facility] Stop: 07/08/18 10:59 Last Infusion: 05/12/18 12:00 Dose: Infused Dextrose/Sodium Chloride (D5-0.9%Ns) 1,000 mls @ 100 mls/hr IV .Q10H [facility] Stop: 07/10/18 06:59 Last Infusion: 05/13/18 06:00 Dose: Infused Ondansetron HCl (Zofran Odt) 4 mg PO Q6H PRN PRN Reason: Nausea / Vomiting Stop: 07/08/18 17:28 Temazepam (Restoril) 15 mg PO HS PRN; Protocol PRN Reason: Insomnia Stop: 07/08/18 17:28 Last Admin: 05/11/18 23:04 Dose: 15 mg General: Alert, Oriented x3, Cooperative, No acute distress HEENT: Atraumatic Neck: Supple Cardiovascular: Regular rate Lungs: Other (Rude respiration) Abdomen: Bowel sounds, Soft Extremities: Other (No edema) Neurological: Normal gait Skin: Other (Warm and dry) Psych/Mental Status: Mental status NL - Procedures Procedures: Procedures Procedure Code Date DRAINAGE OF R PLEURAL CAV WITH DRAIN DEV, OPEN APPROACH [id number] 05/08/18 Assessment/Plan - Assessment Assessment: Patient is awake, alert, calm in no acute distress, CXR shows Pneumothorax resolved. Dx:Pneumothorax, HTN, Dyslipemia. - Plan Plan: Surgery is postpone. Continue with Chest tub in place. Seen by pulmonology and Surgery. Will continue to monitor. Nutritional Asmnt/Malnutr-PDOC - Dietary Evaluation Malnutrition Findings (Please click <Entered> for more info): Nutritional Asmnt/Malnutrition Start: 05/11/18 16: 42 Text: Status: Complete Freq: Protocol: Document 05/11/18 16:48 LCHENG (Rec: 05/11/18 16:53 [id number]) Nutritional Asmnt/Malnutrition Patient General Information Nutritional Screening Moderate Risk Diagnosis atypical chest pain Pertinent Medical Hx/Surgical Hx HTN Subjective Information pt was NPO today for possible sugery bullectomy. Per nurse note, surgery is rescheduled on Monday. Per EMR, PO intake was 100%. Current Diet Order/ Nutrition Support cardiac Pertinent Medications D5-0.9%ns, levaquin Pertinent Labs 05/11 Na 135, K 3.4, glucose 99 Nutritional Hx/Data Height 1.75 m Height (Calculated Centimeters) 175.3 Current Weight (lbs) 91.172 kg Weight (Calculated Kilograms) 91.2 Weight (Calculated Grams) 16892.1 [place] Body Weight 160 Body Mass Index (BMI) 29.7 Weight Status Overweight GI Symptoms GI Symptoms None Last BM 05/11 Difficult in: None Skin Integrity/Comment: intact Current %PO Good (75-100%) Estimated Nutritional Goals BEE in Kcals: Adj wt of IBW Calories/Kcals/Kg 25-30 Kcals Calculated 8138-4419 Protein: Adj wt of IBW Protein g/k Protein Calculated 73 Fluid: ml 1925-2310ml (1ml/kcal) Nutritional Problem No current Nutrition Prob Problem N/A Malnutrition Alert Is there a minimum of two criteria No selected? Query Text:Check all the applicable criteria. A minimum of two criteria are recommended for diagnosis of either severe or non-severe malnutrition. Malnutrition Related to Morbid Obesity Malnutrition related to morbid obesity No Intervention/Recommendation Comments 1. Continue with current diet as ordered. 2. Monitor PO intake, wt, labs and skin integrity 3. F/U as moderate risk in 3-5 days, 05/14-05/16 Expected Outcomes/Goals Expected Outcomes/Goals 1. PO intake to meet at least 75% of nutritional needs. 2. Wt stability, skin to remain intact, labs to approach WNL.
[2018-05-13] MEDS: Levofloxacin 750mg/150mL 750 MG/150 ML BAG IV SCH (12:41)
[2018-05-14] MEDS: Albuterol/Ipratropium Neb 3 ML AERS HHN SCH ×5 (01:14→19:00)
[2018-05-14 04:48] LABS: % EOSINOPHILS 7.1 % (0.0-5.0); % LYMPHOCYTES 44.1 % (20.0-50.0); % MONOCYTES 11.5 % (2.0-10.0); % NEUTROPHILS 36.3 % (40.0-80.0); BASOPHILE ABSOLUTE 0.1 Th/cumm (0-0.2); EOSINOPHILE ABSOLUTE 0.4 Th/cmm (0.1-0.4); HEMATOCRIT 41.1 % (41.0-60); HEMOGLOBIN 13.7 gm/dL (12-16); LYMPHOCYTE ABSOLUTE 2.3 Th/cmm (1.5-3.0); MEAN CORPUSCULAR HEMOGLOBIN 28.6 pg (26.0-30.0); MEAN CORPUSCULAR HGB CONC 33.3 pg (28.0-36.0); MEAN PLATELET VOLUME 8.6 fl; MONOCYTE ABSOLUTE 0.6 Th/cmm (0.3-1.0); PLATELET COUNT 261 Th/cmm (150-400); RED BLOOD COUNT 4.78 Mil/cmm (4.30-5.70); RED CELL DISTRIBUTION WIDTH 12.4 % (11.5-20.0); WHITE BLOOD COUNT 5.4 Th/cmm (4.8-10.8)
[2018-05-14 04:58] LABS: ALB/GLOB RATIO 1.1 (1.0-1.8); ALBUMIN 3.6 gm/dL (4.2-5.5); ALKALINE PHOSPHATASE 67 U/L (34-104); ANION GAP 9.6 (7.0-16.0); BILIRUBIN,TOTAL 0.4 mg/dL (0.3-1.0); BUN - UREA NITROGEN 13 mg/dL (7-25); CALCIUM SERUM 9.1 mg/dL (8.6-10.3); CARBON DIOXIDE 26.9 mEq/L (21.0-31.0); CHLORIDE 103 mEq/L (98-107); CREATININE - SERUM 1.2 mg/dL (0.7-1.3); GFR AFRICAN-AMERICAN > 60.0 ml/min (>90); GFR NON AFRICAN-AMERICAN > 60.0 ml/min; GLUCOSE 91 mg/dL (70-105); POTASSIUM SERUM 3.5 mEq/L (3.5-5.1); SGOT 20 U/L (13-39); SGPT/ALT 16 U/L (7-52); SODIUM SERUM 136 mEq/L (136-145); TOTAL PROTEIN,SERUM 6.8 gm/dL (6.0-8.3)
--- NOTE | 2018-05-14 08:24 | General Progress Note ---
Subjective - Review of Systems Service Date: 05/14/18 Subjective: I am fine Objective - Results Result Diagrams: 05/14/18 04:00 05/14/18 04:00 Recent Labs: Laboratory Last Values WBC 5.4 Th/cmm (4.8-10.8) 05/14/18 04:00 RBC 4.78 Mil/cmm (4.30-5.70) 05/14/18 04:00 Hgb 13.7 gm/dL (12-16) 05/14/18 04:00 Hct 41.1 % (41.0-60) 05/14/18 04:00 MCV 86.0 fl (80-99) 05/14/18 04:00 MCH 28.6 pg (26.0-30.0) 05/14/18 04:00 MCHC Differential 33.3 pg (28.0-36.0) 05/14/18 04:00 RDW 12.4 % (11.5-20.0) 05/14/18 04:00 Plt Count 261 Th/cmm (150-400) 05/14/18 04:00 MPV 8.6 fl 05/14/18 04:00 Neutrophils % 36.3 % (40.0-80.0) L 05/14/18 04:00 Lymphocytes % 44.1 % (20.0-50.0) 05/14/18 04:00 Monocytes % 11.5 % (2.0-10.0) H 05/14/18 04:00 Eosinophils % 7.1 % (0.0-5.0) H 05/14/18 04:00 Basophils % 1.0 % (0.0-2.0) 05/14/18 04:00 Neutrophils (Manual) 36 % (40-80) L 05/13/18 04:45 Lymphocytes 54 % (20-50) H 05/13/18 04:45 Monocytes 7 % (2-10) 05/13/18 04:45 Eosinophils 3 % (0-5) 05/13/18 04:45 Platelet Estimate ADEQUATE (NORMAL) 05/13/18 04:45 PT 9.9 SECONDS (9.5-11.5) 05/11/18 05:00 INR 0.95 (0.5-1.4) 05/11/18 05:00 PTT (Actin FS) 28.1 SECONDS (26.0-38.0) 05/11/18 05:00 D-Dimer 147 ng/mL (100-400) 05/08/18 17:05 Sodium 136 mEq/L (136-145) 05/14/18 04:00 Potassium 3.5 mEq/L (3.5-5.1) 05/14/18 04:00 Chloride 103 mEq/L (98-107) 05/14/18 04:00 Carbon Dioxide 26.9 mEq/L (21.0-31.0) 05/14/18 04:00 Anion Gap 9.6 (7.0-16.0) 05/14/18 04:00 BUN 13 mg/dL (7-25) 05/14/18 04:00 Creatinine 1.2 mg/dL (0.7-1.3) 05/14/18 04:00 Est GFR ( Amer) > 60.0 ml/min (>90) 05/14/18 04:00 Est GFR (Non-Af Amer) > 60.0 ml/min 05/14/18 04:00 BUN/Creatinine Ratio 10.8 05/14/18 04:00 Glucose 91 mg/dL (70-105) 05/14/18 04:00 POC Glucose 107 MG/DL (70 - 105) H 05/08/18 21:51 Calcium 9.1 mg/dL (8.6-10.3) 05/14/18 04:00 Total Bilirubin 0.4 mg/dL (0.3-1.0) 05/14/18 04:00 AST 20 U/L (13-39) 05/14/18 04:00 ALT 16 U/L (7-52) 05/14/18 04:00 Alkaline Phosphatase 67 U/L (34-104) 05/14/18 04:00 Creatine Kinase 190 U/L (30-223) 05/08/18 17:05 Troponin I < 0.01 ng/mL (0.01-0.05) L 05/09/18 05:50 B-Natriuretic Peptide < 5.0 pg/mL (5.0-100.0) L 05/08/18 17:05 Total Protein 6.8 gm/dL (6.0-8.3) 05/14/18 04:00 Albumin 3.6 gm/dL (4.2-5.5) L 05/14/18 04:00 Globulin 3.2 gm/dL 05/14/18 04:00 Albumin/Globulin Ratio 1.1 (1.0-1.8) 05/14/18 04:00 Triglycerides 123 mg/dL (<150) 05/08/18 17:05 Cholesterol 223 mg/dL (<200) H 05/08/18 17:05 LDL Cholesterol Direct 146 mg/dL (75-193) 05/08/18 17:05 HDL Cholesterol 56 mg/dL (23-92) 05/08/18 17:05 Blood Type O POSITIVE 05/11/18 05:00 Antibody Screen NEGATIVE 05/11/18 05:00 - Physical Exam Vitals and I&O: Vital Signs Temp 98.2 F 05/14/18 04:00 Pulse 62 05/14/18 07:10 Resp 12 05/14/18 07:10 BP 123/86 05/14/18 07:00 Pulse Ox 100 05/14/18 07:10 Intake & Output 05/13/18 05/14/18 05/14/18 18:59 06:59 18:59 Intake Total 1850 300 Output Total 2101 700 1400 Balance -251 -700 -1100 Weight (lbs) 90.265 kg 90.265 kg 90.265 kg Intake: Intake, IV Amount 1150 D5-0.9%Ns 1,000 ml @ 100 1000 mls/hr IV .Q10H [facility] Rx#: [id number] Levofloxacin 750mg/150mL 150 750 mg In 150 ml @ 100 mls/hr IV Q24H [facility] Rx#: [id number] Oral 700 300 Output: Chest Tube Drainage 0 Right Anterior Chest 0 Urine 2100 700 1400 Stool 1 Other: Weight Source Estimated Bedscale Bedscale Active Medications: Current Medications Acetaminophen (Tylenol) 650 mg PO Q6H PRN PRN Reason: Pain or Fever >101 Stop: 07/07/18 19:45 Last Admin: 05/10/18 02:44 Dose: 650 mg Albuterol/Ipratropium (Duoneb Neb) 3 ml HHN Q6HRT [facility] Stop: 07/08/18 18:59 Last Admin: 05/14/18 07:01 Dose: 3 ml Amlodipine Besylate (Norvasc) 10 mg PO DAILY [facility] Stop: 07/08/18 08:59 Last Admin: 05/13/18 10:10 Dose: 10 mg Aspirin (Aspirin) 325 mg PO DAILY [facility] Stop: 07/08/18 08:59 Last Admin: 05/13/18 10:10 Dose: 325 mg Hydrochlorothiazide (Hctz) 25 mg PO DAILY [facility] Stop: 07/08/18 08:59 Last Admin: 05/13/18 10:08 Dose: 25 mg Hydromorphone HCl (Dilaudid) 2 mg IVP Q4HR PRN PRN Reason: Severe Pain Stop: 07/08/18 15:20 Last Admin: 05/13/18 21:11 Dose: 2 mg Levofloxacin (Levaquin Pb) 750 mg in 150 mls @ 100 mls/hr IV Q24H [facility] Stop: 07/08/18 10:59 Last Infusion: 05/13/18 16:32 Dose: Infused Dextrose/Sodium Chloride (D5-0.9%Ns) 1,000 mls @ 100 mls/hr IV .Q10H [facility] Stop: 07/10/18 06:59 Last Infusion: 05/13/18 18:00 Dose: Infused Ondansetron HCl (Zofran Odt) 4 mg PO Q6H PRN PRN Reason: Nausea / Vomiting Stop: 07/08/18 17:28 Temazepam (Restoril) 15 mg PO HS PRN; Protocol PRN Reason: Insomnia Stop: 07/08/18 17:28 Last Admin: 05/11/18 23:04 Dose: 15 mg General: Alert, Oriented x3, Cooperative, No acute distress HEENT: Atraumatic Neck: Supple Cardiovascular: Regular rate Lungs: Other (Rude respiration) Abdomen: Bowel sounds, Soft Extremities: Other (No edema) Neurological: Normal gait Skin: Other (Warm and dry) Psych/Mental Status: Mental status NL - Procedures Procedures: Procedures Procedure Code Date DRAINAGE OF R PLEURAL CAV WITH DRAIN DEV, OPEN APPROACH [id number] 05/08/18 Assessment/Plan - Assessment Assessment: Patient is awake, alert, calm in no acute distress, CXR shows Pneumothorax resolved. Dx:Pneumothorax, HTN, Dyslipemia. - Plan Plan: Surgery is postpone. Continue with Chest tub in place. Seen by pulmonology and Surgery. Will continue to monitor. Nutritional Asmnt/Malnutr-PDOC - Dietary Evaluation Malnutrition Findings (Please click <Entered> for more info): Nutritional Asmnt/Malnutrition Start: 05/11/18 16: 42 Text: Status: Complete Freq: Protocol: Document 05/11/18 16:48 [email or web address] (Rec: 05/11/18 16:53 [email or web address]) Nutritional Asmnt/Malnutrition Patient General Information Nutritional Screening Moderate Risk Diagnosis atypical chest pain Pertinent Medical Hx/Surgical Hx HTN Subjective Information pt was NPO today for possible sugery bullectomy. Per nurse note, surgery is rescheduled on Monday. Per EMR, PO intake was 100%. Current Diet Order/ Nutrition Support cardiac Pertinent Medications D5-0.9%ns, levaquin Pertinent Labs 05/11 Na 135, K 3.4, glucose 99 Nutritional Hx/Data Height 1.75 m Height (Calculated Centimeters) 175.3 Current Weight (lbs) 91.172 kg Weight (Calculated Kilograms) 91.2 Weight (Calculated Grams) 64246.1 [place] Body Weight 160 Body Mass Index (BMI) 29.7 Weight Status Overweight GI Symptoms GI Symptoms None Last BM 05/11 Difficult in: None Skin Integrity/Comment: intact Current %PO Good (75-100%) Estimated Nutritional Goals BEE in Kcals: Adj wt of IBW Calories/Kcals/Kg 25-30 Kcals Calculated [id number] Protein: Adj wt of IBW Protein g/k Protein Calculated 73 Fluid: ml 1925-2310ml (1ml/kcal) Nutritional Problem No current Nutrition Prob Problem N/A Malnutrition Alert Is there a minimum of two criteria No selected? Query Text:Check all the applicable criteria. A minimum of two criteria are recommended for diagnosis of either severe or non-severe malnutrition. Malnutrition Related to Morbid Obesity Malnutrition related to morbid obesity No Intervention/Recommendation Comments 1. Continue with current diet as ordered. 2. Monitor PO intake, wt, labs and skin integrity 3. F/U as moderate risk in 3-5 days, 05/14-05/16 Expected Outcomes/Goals Expected Outcomes/Goals 1. PO intake to meet at least 75% of nutritional needs. 2. Wt stability, skin to remain intact, labs to approach WNL.
--- NOTE | 2018-05-14 08:57 | General Progress Note ---
Subjective - Review of Systems Service Date: 05/14/18 Events since last encounter: off suction for 2 days with no pneumo to floor repeat xray in AM, if ok DC chest tube Objective - Results Result Diagrams: 05/14/18 04:00 05/14/18 04:00 Recent Labs: Laboratory Last Values WBC 5.4 Th/cmm (4.8-10.8) 05/14/18 04:00 RBC 4.78 Mil/cmm (4.30-5.70) 05/14/18 04:00 Hgb 13.7 gm/dL (12-16) 05/14/18 04:00 Hct 41.1 % (41.0-60) 05/14/18 04:00 MCV 86.0 fl (80-99) 05/14/18 04:00 MCH 28.6 pg (26.0-30.0) 05/14/18 04:00 MCHC Differential 33.3 pg (28.0-36.0) 05/14/18 04:00 RDW 12.4 % (11.5-20.0) 05/14/18 04:00 Plt Count 261 Th/cmm (150-400) 05/14/18 04:00 MPV 8.6 fl 05/14/18 04:00 Neutrophils % 36.3 % (40.0-80.0) L 05/14/18 04:00 Lymphocytes % 44.1 % (20.0-50.0) 05/14/18 04:00 Monocytes % 11.5 % (2.0-10.0) H 05/14/18 04:00 Eosinophils % 7.1 % (0.0-5.0) H 05/14/18 04:00 Basophils % 1.0 % (0.0-2.0) 05/14/18 04:00 Neutrophils (Manual) 36 % (40-80) L 05/13/18 04:45 Lymphocytes 54 % (20-50) H 05/13/18 04:45 Monocytes 7 % (2-10) 05/13/18 04:45 Eosinophils 3 % (0-5) 05/13/18 04:45 Platelet Estimate ADEQUATE (NORMAL) 05/13/18 04:45 PT 9.9 SECONDS (9.5-11.5) 05/11/18 05:00 INR 0.95 (0.5-1.4) 05/11/18 05:00 PTT (Actin FS) 28.1 SECONDS (26.0-38.0) 05/11/18 05:00 D-Dimer 147 ng/mL (100-400) 05/08/18 17:05 Sodium 136 mEq/L (136-145) 05/14/18 04:00 Potassium 3.5 mEq/L (3.5-5.1) 05/14/18 04:00 Chloride 103 mEq/L (98-107) 05/14/18 04:00 Carbon Dioxide 26.9 mEq/L (21.0-31.0) 05/14/18 04:00 Anion Gap 9.6 (7.0-16.0) 05/14/18 04:00 BUN 13 mg/dL (7-25) 05/14/18 04:00 Creatinine 1.2 mg/dL (0.7-1.3) 05/14/18 04:00 Est GFR ( Amer) > 60.0 ml/min (>90) 05/14/18 04:00 Est GFR (Non-Af Amer) > 60.0 ml/min 05/14/18 04:00 BUN/Creatinine Ratio 10.8 05/14/18 04:00 Glucose 91 mg/dL (70-105) 05/14/18 04:00 POC Glucose 107 MG/DL (70 - 105) H 05/08/18 21:51 Calcium 9.1 mg/dL (8.6-10.3) 05/14/18 04:00 Total Bilirubin 0.4 mg/dL (0.3-1.0) 05/14/18 04:00 AST 20 U/L (13-39) 05/14/18 04:00 ALT 16 U/L (7-52) 05/14/18 04:00 Alkaline Phosphatase 67 U/L (34-104) 05/14/18 04:00 Creatine Kinase 190 U/L (30-223) 05/08/18 17:05 Troponin I < 0.01 ng/mL (0.01-0.05) L 05/09/18 05:50 B-Natriuretic Peptide < 5.0 pg/mL (5.0-100.0) L 05/08/18 17:05 Total Protein 6.8 gm/dL (6.0-8.3) 05/14/18 04:00 Albumin 3.6 gm/dL (4.2-5.5) L 05/14/18 04:00 Globulin 3.2 gm/dL 05/14/18 04:00 Albumin/Globulin Ratio 1.1 (1.0-1.8) 05/14/18 04:00 Triglycerides 123 mg/dL (<150) 05/08/18 17:05 Cholesterol 223 mg/dL (<200) H 05/08/18 17:05 LDL Cholesterol Direct 146 mg/dL (75-193) 05/08/18 17:05 HDL Cholesterol 56 mg/dL (23-92) 05/08/18 17:05 Blood Type O POSITIVE 05/11/18 05:00 Antibody Screen NEGATIVE 05/11/18 05:00 - Physical Exam Vitals and I&O: Vital Signs Temp 98.2 F 05/14/18 04:00 Pulse 62 05/14/18 07:10 Resp 12 05/14/18 07:10 BP 123/86 05/14/18 07:00 Pulse Ox 100 05/14/18 07:10 Intake & Output 05/13/18 05/14/18 05/14/18 18:59 06:59 18:59 Intake Total 1850 300 Output Total 2101 700 1400 Balance -251 -700 -1100 Weight (lbs) 90.265 kg 90.265 kg 90.265 kg Intake: Intake, IV Amount 1150 D5-0.9%Ns 1,000 ml @ 100 1000 mls/hr IV .Q10H [facility] Rx#: [id number] Levofloxacin 750mg/150mL 150 750 mg In 150 ml @ 100 mls/hr IV Q24H [facility] Rx#: [id number] Oral 700 300 Output: Chest Tube Drainage 0 Right Anterior Chest 0 Urine 2100 700 1400 Stool 1 Other: Weight Source Estimated Bedscale Bedscale Active Medications: Current Medications Acetaminophen (Tylenol) 650 mg PO Q6H PRN PRN Reason: Pain or Fever >101 Stop: 07/07/18 19:45 Last Admin: 05/10/18 02:44 Dose: 650 mg Albuterol/Ipratropium (Duoneb Neb) 3 ml HHN Q6HRT [facility] Stop: 07/08/18 18:59 Last Admin: 05/14/18 07:01 Dose: 3 ml Amlodipine Besylate (Norvasc) 10 mg PO DAILY [facility] Stop: 07/08/18 08:59 Last Admin: 05/13/18 10:10 Dose: 10 mg Aspirin (Aspirin) 325 mg PO DAILY [facility] Stop: 07/08/18 08:59 Last Admin: 05/13/18 10:10 Dose: 325 mg Hydrochlorothiazide (Hctz) 25 mg PO DAILY [facility] Stop: 07/08/18 08:59 Last Admin: 05/13/18 10:08 Dose: 25 mg Hydromorphone HCl (Dilaudid) 2 mg IVP Q4HR PRN PRN Reason: Severe Pain Stop: 07/08/18 15:20 Last Admin: 05/13/18 21:11 Dose: 2 mg Levofloxacin (Levaquin Pb) 750 mg in 150 mls @ 100 mls/hr IV Q24H [facility] Stop: 07/08/18 10:59 Last Infusion: 05/13/18 16:32 Dose: Infused Dextrose/Sodium Chloride (D5-0.9%Ns) 1,000 mls @ 100 mls/hr IV .Q10H [facility] Stop: 07/10/18 06:59 Last Infusion: 05/13/18 18:00 Dose: Infused Ondansetron HCl (Zofran Odt) 4 mg PO Q6H PRN PRN Reason: Nausea / Vomiting Stop: 07/08/18 17:28 Temazepam (Restoril) 15 mg PO HS PRN; Protocol PRN Reason: Insomnia Stop: 07/08/18 17:28 Last Admin: 05/11/18 23:04 Dose: 15 mg General: Alert, Oriented x3, Cooperative, No acute distress HEENT: Atraumatic Neck: Supple Cardiovascular: Regular rate Lungs: Other (Rude respiration) Abdomen: Bowel sounds, Soft Extremities: Other (No edema) Neurological: Normal gait Skin: Other (Warm and dry) Psych/Mental Status: Mental status NL - Procedures Procedures: Procedures Procedure Code Date DRAINAGE OF R PLEURAL CAV WITH DRAIN DEV, OPEN APPROACH [id number] 05/08/18 Nutritional Asmnt/Malnutr-PDOC - Dietary Evaluation Malnutrition Findings (Please click <Entered> for more info): Nutritional Asmnt/Malnutrition Start: 05/11/18 16: 42 Text: Status: Complete Freq: Protocol: Document 05/11/18 16:48 [email or web address] (Rec: 05/11/18 16:53 [email or web address]) Nutritional Asmnt/Malnutrition Patient General Information Nutritional Screening Moderate Risk Diagnosis atypical chest pain Pertinent Medical Hx/Surgical Hx HTN Subjective Information pt was NPO today for possible sugery bullectomy. Per nurse note, surgery is rescheduled on Monday. Per EMR, PO intake was 100%. Current Diet Order/ Nutrition Support cardiac Pertinent Medications D5-0.9%ns, levaquin Pertinent Labs 05/11 Na 135, K 3.4, glucose 99 Nutritional Hx/Data Height 1.75 m Height (Calculated Centimeters) 175.3 Current Weight (lbs) 91.172 kg Weight (Calculated Kilograms) 91.2 Weight (Calculated Grams) 23301.1 [place] Body Weight 160 Body Mass Index (BMI) 29.7 Weight Status Overweight GI Symptoms GI Symptoms None Last BM 05/11 Difficult in: None Skin Integrity/Comment: intact Current %PO Good (75-100%) Estimated Nutritional Goals BEE in Kcals: Adj wt of IBW Calories/Kcals/Kg 25-30 Kcals Calculated [id number] Protein: Adj wt of IBW Protein g/k Protein Calculated 73 Fluid: ml 1925-2310ml (1ml/kcal) Nutritional Problem No current Nutrition Prob Problem N/A Malnutrition Alert Is there a minimum of two criteria No selected? Query Text:Check all the applicable criteria. A minimum of two criteria are recommended for diagnosis of either severe or non-severe malnutrition. Malnutrition Related to Morbid Obesity Malnutrition related to morbid obesity No Intervention/Recommendation Comments 1. Continue with current diet as ordered. 2. Monitor PO intake, wt, labs and skin integrity 3. F/U as moderate risk in 3-5 days, 05/14-05/16 Expected Outcomes/Goals Expected Outcomes/Goals 1. PO intake to meet at least 75% of nutritional needs. 2. Wt stability, skin to remain intact, labs to approach WNL.
--- NOTE | 2018-05-14 09:18 | Diagnostic Imaging Report ---
CHEST X-RAY: AP view INDICATION: Pneumonia COMPARISON: Chest x-ray 05/13/[address] chest on 05/09/2018 FINDINGS: Right chest tube is seen slightly more inferiorly positioning since prior exam. There may be a small right basal pneumothorax. Slight increased right basal lung markings are noted. Again seen is a 1.5 cm pulmonary nodule along the left midlung. IMPRESSION: Right chest tube slightly more inferior in positioning since prior exam with tip along the right upper lung zone. There may be a small right basal pneumothorax. Right basal atelectasis versus less likely infiltrate 1.5 cm left midlung pulmonary nodule as seen on previous CT chest. Neoplastic etiology cannot be excluded.
[2018-05-14] MEDS: Levofloxacin 750mg/150mL 750 MG/150 ML BAG IV SCH (10:59)
[2018-05-14] MEDS: HYDROmorphone 2 mg/mL 1mL Vial IVP PRN ×2 (16:50→20:56)
[2018-05-14] MEDS: D5-0.9%NS 1,000 ML IV SCH (20:38)
[2018-05-15] MEDS: Albuterol/Ipratropium Neb 3 ML AERS HHN SCH ×2 (00:28→07:22)
[2018-05-15] MEDS: HYDROmorphone 2 mg/mL 1mL Vial IVP PRN ×2 (01:08→08:22)
[2018-05-15 06:26] LABS: ALB/GLOB RATIO 1.2 (1.0-1.8); ALBUMIN 3.8 gm/dL (4.2-5.5); ALKALINE PHOSPHATASE 68 U/L (34-104); ANION GAP 9.1 (7.0-16.0); BILIRUBIN,TOTAL 0.5 mg/dL (0.3-1.0); BUN - UREA NITROGEN 15 mg/dL (7-25); CALCIUM SERUM 9.3 mg/dL (8.6-10.3); CARBON DIOXIDE 30.9 mEq/L (21.0-31.0); CHLORIDE 103 mEq/L (98-107); CREATININE - SERUM 1.2 mg/dL (0.7-1.3); GFR AFRICAN-AMERICAN > 60.0 ml/min (>90); GFR NON AFRICAN-AMERICAN > 60.0 ml/min; GLUCOSE 93 mg/dL (70-105); SGOT 20 U/L (13-39); SGPT/ALT 15 U/L (7-52); SODIUM SERUM 139 mEq/L (136-145); TOTAL PROTEIN,SERUM 7.1 gm/dL (6.0-8.3)
[2018-05-15 06:28] LABS: % BASOPHILS 0.8 % (0.0-2.0); % EOSINOPHILS 7.1 % (0.0-5.0); % LYMPHOCYTES 55.2 % (20.0-50.0); % MONOCYTES 9.9 % (2.0-10.0); EOSINOPHILE ABSOLUTE 0.4 Th/cmm (0.1-0.4); HEMATOCRIT 42.8 % (41.0-60); HEMOGLOBIN 14.2 gm/dL (12-16); MEAN CELL VOLUME 86.1 fl (80-99); MEAN CORPUSCULAR HEMOGLOBIN 28.5 pg (26.0-30.0); MEAN CORPUSCULAR HGB CONC 33.1 pg (28.0-36.0); MEAN PLATELET VOLUME 8.7 fl; MONOCYTE ABSOLUTE 0.5 Th/cmm (0.3-1.0); NEUTROPHILE ABSOLUTE 1.4 Th/cmm (1.8-8.0); PLATELET COUNT 284 Th/cmm (150-400); RED BLOOD COUNT 4.97 Mil/cmm (4.30-5.70); RED CELL DISTRIBUTION WIDTH 12.6 % (11.5-20.0); WHITE BLOOD COUNT 5.3 Th/cmm (4.8-10.8)
--- NOTE | 2018-05-15 08:43 | Diagnostic Imaging Report ---
Portable chest x-ray HISTORY: Shortness of breath Compared to prior exam of 05/14/2018, a right chest tube has been pulled back. The side hole is along the pleural surface near the right costophrenic angle. No pneumothorax is seen. A linear density is noted in the right perihilar region. Findings may be associated with subsegmental atelectasis. The heart size is normal. IMPRESSION: 1. Repositioned right chest tube with the sidehole along the pleural surface at the right costophrenic angle. 2. No pneumothorax 3. Linear density within the right perihilar region. Findings may be associated with subsegmental atelectasis.
--- NOTE | 2018-05-15 08:57 | General Progress Note ---
Subjective - Review of Systems Service Date: 05/15/18 Subjective: I fell fine Objective - Results Result Diagrams: 05/15/18 05:25 05/15/18 05:25 Recent Labs: Laboratory Last Values WBC 5.3 Th/cmm (4.8-10.8) 05/15/18 05:25 RBC 4.97 Mil/cmm (4.30-5.70) 05/15/18 05:25 Hgb 14.2 gm/dL (12-16) 05/15/18 05:25 Hct 42.8 % (41.0-60) 05/15/18 05:25 MCV 86.1 fl (80-99) 05/15/18 05:25 MCH 28.5 pg (26.0-30.0) 05/15/18 05:25 MCHC Differential 33.1 pg (28.0-36.0) 05/15/18 05:25 RDW 12.6 % (11.5-20.0) 05/15/18 05:25 Plt Count 284 Th/cmm (150-400) 05/15/18 05:25 MPV 8.7 fl 05/15/18 05:25 Neutrophils % 27.0 % (40.0-80.0) L 05/15/18 05:25 Lymphocytes % 55.2 % (20.0-50.0) H 05/15/18 05:25 Monocytes % 9.9 % (2.0-10.0) 05/15/18 05:25 Eosinophils % 7.1 % (0.0-5.0) H 05/15/18 05:25 Basophils % 0.8 % (0.0-2.0) 05/15/18 05:25 Neutrophils (Manual) 36 % (40-80) L 05/13/18 04:45 Lymphocytes 54 % (20-50) H 05/13/18 04:45 Monocytes 7 % (2-10) 05/13/18 04:45 Eosinophils 3 % (0-5) 05/13/18 04:45 Platelet Estimate ADEQUATE (NORMAL) 05/13/18 04:45 PT 9.9 SECONDS (9.5-11.5) 05/11/18 05:00 INR 0.95 (0.5-1.4) 05/11/18 05:00 PTT (Actin FS) 28.1 SECONDS (26.0-38.0) 05/11/18 05:00 D-Dimer 147 ng/mL (100-400) 05/08/18 17:05 Sodium 139 mEq/L (136-145) 05/15/18 05:25 Potassium 4.0 mEq/L (3.5-5.1) 05/15/18 05:25 Chloride 103 mEq/L (98-107) 05/15/18 05:25 Carbon Dioxide 30.9 mEq/L (21.0-31.0) 05/15/18 05:25 Anion Gap 9.1 (7.0-16.0) 05/15/18 05:25 BUN 15 mg/dL (7-25) 05/15/18 05:25 Creatinine 1.2 mg/dL (0.7-1.3) 05/15/18 05:25 Est GFR ( Amer) > 60.0 ml/min (>90) 05/15/18 05:25 Est GFR (Non-Af Amer) > 60.0 ml/min 05/15/18 05:25 BUN/Creatinine Ratio 12.5 05/15/18 05:25 Glucose 93 mg/dL (70-105) 05/15/18 05:25 POC Glucose 107 MG/DL (70 - 105) H 05/08/18 21:51 Calcium 9.3 mg/dL (8.6-10.3) 05/15/18 05:25 Total Bilirubin 0.5 mg/dL (0.3-1.0) 05/15/18 05:25 AST 20 U/L (13-39) 05/15/18 05:25 ALT 15 U/L (7-52) 05/15/18 05:25 Alkaline Phosphatase 68 U/L (34-104) 05/15/18 05:25 Creatine Kinase 190 U/L (30-223) 05/08/18 17:05 Troponin I < 0.01 ng/mL (0.01-0.05) L 05/09/18 05:50 B-Natriuretic Peptide < 5.0 pg/mL (5.0-100.0) L 05/08/18 17:05 Total Protein 7.1 gm/dL (6.0-8.3) 05/15/18 05:25 Albumin 3.8 gm/dL (4.2-5.5) L 05/15/18 05:25 Globulin 3.3 gm/dL 05/15/18 05:25 Albumin/Globulin Ratio 1.2 (1.0-1.8) 05/15/18 05:25 Triglycerides 123 mg/dL (<150) 05/08/18 17:05 Cholesterol 223 mg/dL (<200) H 05/08/18 17:05 LDL Cholesterol Direct 146 mg/dL (75-193) 05/08/18 17:05 HDL Cholesterol 56 mg/dL (23-92) 05/08/18 17:05 Blood Type O POSITIVE 05/11/18 05:00 Antibody Screen NEGATIVE 05/11/18 05:00 - Physical Exam Vitals and I&O: Vital Signs Temp 97.5 F 05/15/18 07:46 Pulse 62 05/15/18 08:22 Resp 18 05/15/18 07:46 BP 132/89 05/15/18 08:22 Pulse Ox 99 05/15/18 07:46 Intake & Output 05/14/18 05/15/18 05/15/18 18:59 06:59 18:59 Intake Total 1100 100 Output Total 2630 840 Balance -1530 -740 Weight (lbs) 89.811 kg 91.535 kg Intake: Oral 1100 100 Output: Chest Tube Drainage 28 40 Right Anterior Chest 28 40 Urine 2602 800 Other: # Voids 320 2 Stool Characteristics Formed Formed Brown Brown Weight Source Estimated Bedscale Active Medications: Current Medications Acetaminophen (Tylenol) 650 mg PO Q6H PRN PRN Reason: Pain or Fever >101 Stop: 07/07/18 19:45 Last Admin: 05/10/18 02:44 Dose: 650 mg Albuterol/Ipratropium (Duoneb Neb) 3 ml HHN Q6HRT [facility] Stop: 07/08/18 18:59 Last Admin: 05/15/18 07:22 Dose: 3 ml Amlodipine Besylate (Norvasc) 10 mg PO DAILY [facility] Stop: 07/08/18 08:59 Last Admin: 05/15/18 08:22 Dose: 10 mg Aspirin (Aspirin) 325 mg PO DAILY [facility] Stop: 07/08/18 08:59 Last Admin: 05/15/18 08:22 Dose: 325 mg Hydrochlorothiazide (Hctz) 25 mg PO DAILY [facility] Stop: 07/08/18 08:59 Last Admin: 05/15/18 08:22 Dose: 25 mg Hydromorphone HCl (Dilaudid) 2 mg IVP Q4HR PRN PRN Reason: Severe Pain Stop: 07/08/18 15:20 Last Admin: 05/15/18 08:22 Dose: 2 mg Levofloxacin (Levaquin Pb) 750 mg in 150 mls @ 100 mls/hr IV Q24H [facility] Stop: 07/08/18 10:59 Last Admin: 05/14/18 10:59 Dose: 100 mls/hr Dextrose/Sodium Chloride (D5-0.9%Ns) 1,000 mls @ 100 mls/hr IV .Q10H [facility] Stop: 07/10/18 06:59 Last Admin: 05/14/18 20:38 Dose: 100 mls/hr Ondansetron HCl (Zofran Odt) 4 mg PO Q6H PRN PRN Reason: Nausea / Vomiting Stop: 07/08/18 17:28 Temazepam (Restoril) 15 mg PO HS PRN; Protocol PRN Reason: Insomnia Stop: 07/08/18 17:28 Last Admin: 05/11/18 23:04 Dose: 15 mg General: Alert, Oriented x3, Cooperative, No acute distress HEENT: Atraumatic Neck: Supple Cardiovascular: Regular rate Lungs: Other (Rude respiration) Abdomen: Bowel sounds, Soft Extremities: Other (No edema) Neurological: Normal gait Skin: Other (Warm and dry) Psych/Mental Status: Mental status NL - Procedures Procedures: Procedures Procedure Code Date DRAINAGE OF R PLEURAL CAV WITH DRAIN DEV, OPEN APPROACH [id number] 05/08/18 Assessment/Plan - Assessment Assessment: Patient is awake, alert, calm in no acute distress, yesterday CXR shows Pneumothorax resolved. Dx:Pneumothorax, HTN, Dyslipemia. - Plan Plan: Surgery is postpone. Continue with Chest tub in place. Awaiting surgery to take off chest tube. Seen by pulmonology and Surgery. Will continue to monitor. Nutritional Asmnt/Malnutr-PDOC - Dietary Evaluation Malnutrition Findings (Please click <Entered> for more info): Nutritional Asmnt/Malnutrition Start: 05/11/18 16: 42 Text: Status: Complete Freq: Protocol: Document 05/11/18 16:48 LCHENG (Rec: 05/11/18 16:53 [email or web address]) Nutritional Asmnt/Malnutrition Patient General Information Nutritional Screening Moderate Risk Diagnosis atypical chest pain Pertinent Medical Hx/Surgical Hx HTN Subjective Information pt was NPO today for possible sugery bullectomy. Per nurse note, surgery is rescheduled on Monday. Per EMR, PO intake was 100%. Current Diet Order/ Nutrition Support cardiac Pertinent Medications D5-0.9%ns, levaquin Pertinent Labs 05/11 Na 135, K 3.4, glucose 99 Nutritional Hx/Data Height 1.75 m Height (Calculated Centimeters) 175.3 Current Weight (lbs) 91.172 kg Weight (Calculated Kilograms) 91.2 Weight (Calculated Grams) 18705.1 [place] Body Weight 160 Body Mass Index (BMI) 29.7 Weight Status Overweight GI Symptoms GI Symptoms None Last BM 05/11 Difficult in: None Skin Integrity/Comment: intact Current %PO Good (75-100%) Estimated Nutritional Goals BEE in Kcals: Adj wt of IBW Calories/Kcals/Kg 25-30 Kcals Calculated 2243-1584 Protein: Adj wt of IBW Protein g/k Protein Calculated 73 Fluid: ml 1925-2310ml (1ml/kcal) Nutritional Problem No current Nutrition Prob Problem N/A Malnutrition Alert Is there a minimum of two criteria No selected? Query Text:Check all the applicable criteria. A minimum of two criteria are recommended for diagnosis of either severe or non-severe malnutrition. Malnutrition Related to Morbid Obesity Malnutrition related to morbid obesity No Intervention/Recommendation Comments 1. Continue with current diet as ordered. 2. Monitor PO intake, wt, labs and skin integrity 3. F/U as moderate risk in 3-5 days, 05/14-05/16 Expected Outcomes/Goals Expected Outcomes/Goals 1. PO intake to meet at least 75% of nutritional needs. 2. Wt stability, skin to remain intact, labs to approach WNL.
--- NOTE | 2018-05-15 10:27 | General Progress Note ---
Subjective - Review of Systems Service Date: 05/15/18 Events since last encounter: xray no pneumo chest tube out may DC warned out possible recurrent pneumo Objective - Results Result Diagrams: 05/15/18 05:25 05/15/18 05:25 Recent Labs: Laboratory Last Values WBC 5.3 Th/cmm (4.8-10.8) 05/15/18 05:25 RBC 4.97 Mil/cmm (4.30-5.70) 05/15/18 05:25 Hgb 14.2 gm/dL (12-16) 05/15/18 05:25 Hct 42.8 % (41.0-60) 05/15/18 05:25 MCV 86.1 fl (80-99) 05/15/18 05:25 MCH 28.5 pg (26.0-30.0) 05/15/18 05:25 MCHC Differential 33.1 pg (28.0-36.0) 05/15/18 05:25 RDW 12.6 % (11.5-20.0) 05/15/18 05:25 Plt Count 284 Th/cmm (150-400) 05/15/18 05:25 MPV 8.7 fl 05/15/18 05:25 Neutrophils % 27.0 % (40.0-80.0) L 05/15/18 05:25 Lymphocytes % 55.2 % (20.0-50.0) H 05/15/18 05:25 Monocytes % 9.9 % (2.0-10.0) 05/15/18 05:25 Eosinophils % 7.1 % (0.0-5.0) H 05/15/18 05:25 Basophils % 0.8 % (0.0-2.0) 05/15/18 05:25 Neutrophils (Manual) 36 % (40-80) L 05/13/18 04:45 Lymphocytes 54 % (20-50) H 05/13/18 04:45 Monocytes 7 % (2-10) 05/13/18 04:45 Eosinophils 3 % (0-5) 05/13/18 04:45 Platelet Estimate ADEQUATE (NORMAL) 05/13/18 04:45 PT 9.9 SECONDS (9.5-11.5) 05/11/18 05:00 INR 0.95 (0.5-1.4) 05/11/18 05:00 PTT (Actin FS) 28.1 SECONDS (26.0-38.0) 05/11/18 05:00 D-Dimer 147 ng/mL (100-400) 05/08/18 17:05 Sodium 139 mEq/L (136-145) 05/15/18 05:25 Potassium 4.0 mEq/L (3.5-5.1) 05/15/18 05:25 Chloride 103 mEq/L (98-107) 05/15/18 05:25 Carbon Dioxide 30.9 mEq/L (21.0-31.0) 05/15/18 05:25 Anion Gap 9.1 (7.0-16.0) 05/15/18 05:25 BUN 15 mg/dL (7-25) 05/15/18 05:25 Creatinine 1.2 mg/dL (0.7-1.3) 05/15/18 05:25 Est GFR ( Amer) > 60.0 ml/min (>90) 05/15/18 05:25 Est GFR (Non-Af Amer) > 60.0 ml/min 05/15/18 05:25 BUN/Creatinine Ratio 12.5 05/15/18 05:25 Glucose 93 mg/dL (70-105) 05/15/18 05:25 POC Glucose 107 MG/DL (70 - 105) H 05/08/18 21:51 Calcium 9.3 mg/dL (8.6-10.3) 05/15/18 05:25 Total Bilirubin 0.5 mg/dL (0.3-1.0) 05/15/18 05:25 AST 20 U/L (13-39) 05/15/18 05:25 ALT 15 U/L (7-52) 05/15/18 05:25 Alkaline Phosphatase 68 U/L (34-104) 05/15/18 05:25 Creatine Kinase 190 U/L (30-223) 05/08/18 17:05 Troponin I < 0.01 ng/mL (0.01-0.05) L 05/09/18 05:50 B-Natriuretic Peptide < 5.0 pg/mL (5.0-100.0) L 05/08/18 17:05 Total Protein 7.1 gm/dL (6.0-8.3) 05/15/18 05:25 Albumin 3.8 gm/dL (4.2-5.5) L 05/15/18 05:25 Globulin 3.3 gm/dL 05/15/18 05:25 Albumin/Globulin Ratio 1.2 (1.0-1.8) 05/15/18 05:25 Triglycerides 123 mg/dL (<150) 05/08/18 17:05 Cholesterol 223 mg/dL (<200) H 05/08/18 17:05 LDL Cholesterol Direct 146 mg/dL (75-193) 05/08/18 17:05 HDL Cholesterol 56 mg/dL (23-92) 05/08/18 17:05 Blood Type O POSITIVE 05/11/18 05:00 Antibody Screen NEGATIVE 05/11/18 05:00 - Physical Exam Vitals and I&O: Vital Signs Temp 97.5 F 05/15/18 07:46 Pulse 62 05/15/18 08:22 Resp 18 05/15/18 07:46 BP 132/89 05/15/18 08:22 Pulse Ox 99 05/15/18 07:46 Intake & Output 05/14/18 05/15/18 05/15/18 18:59 06:59 18:59 Intake Total 1100 100 Output Total 2630 840 Balance -1530 -740 Weight (lbs) 89.811 kg 91.535 kg Intake: Oral 1100 100 Output: Chest Tube Drainage 28 40 Right Anterior Chest 28 40 Urine 2602 800 Other: # Voids 320 2 Stool Characteristics Formed Formed Brown Brown Weight Source Estimated Bedscale Active Medications: Current Medications Acetaminophen (Tylenol) 650 mg PO Q6H PRN PRN Reason: Pain or Fever >101 Stop: 07/07/18 19:45 Last Admin: 05/10/18 02:44 Dose: 650 mg Albuterol/Ipratropium (Duoneb Neb) 3 ml HHN Q6HRT [facility] Stop: 07/08/18 18:59 Last Admin: 05/15/18 07:22 Dose: 3 ml Amlodipine Besylate (Norvasc) 10 mg PO DAILY [facility] Stop: 07/08/18 08:59 Last Admin: 05/15/18 08:22 Dose: 10 mg Aspirin (Aspirin) 325 mg PO DAILY [facility] Stop: 07/08/18 08:59 Last Admin: 05/15/18 08:22 Dose: 325 mg Hydrochlorothiazide (Hctz) 25 mg PO DAILY [facility] Stop: 07/08/18 08:59 Last Admin: 05/15/18 08:22 Dose: 25 mg Hydromorphone HCl (Dilaudid) 2 mg IVP Q4HR PRN PRN Reason: Severe Pain Stop: 07/08/18 15:20 Last Admin: 05/15/18 08:22 Dose: 2 mg Levofloxacin (Levaquin Pb) 750 mg in 150 mls @ 100 mls/hr IV Q24H [facility] Stop: 07/08/18 10:59 Last Admin: 05/14/18 10:59 Dose: 100 mls/hr Dextrose/Sodium Chloride (D5-0.9%Ns) 1,000 mls @ 100 mls/hr IV .Q10H [facility] Stop: 07/10/18 06:59 Last Admin: 05/14/18 20:38 Dose: 100 mls/hr Ondansetron HCl (Zofran Odt) 4 mg PO Q6H PRN PRN Reason: Nausea / Vomiting Stop: 07/08/18 17:28 Temazepam (Restoril) 15 mg PO HS PRN; Protocol PRN Reason: Insomnia Stop: 07/08/18 17:28 Last Admin: 05/11/18 23:04 Dose: 15 mg General: Alert, Oriented x3, Cooperative, No acute distress HEENT: Atraumatic Neck: Supple Cardiovascular: Regular rate Lungs: Other (Rude respiration) Abdomen: Bowel sounds, Soft Extremities: Other (No edema) Neurological: Normal gait Skin: Other (Warm and dry) Psych/Mental Status: Mental status NL - Procedures Procedures: Procedures Procedure Code Date DRAINAGE OF R PLEURAL CAV WITH DRAIN DEV, OPEN APPROACH [id number] 05/08/18 Nutritional Asmnt/Malnutr-PDOC - Dietary Evaluation Malnutrition Findings (Please click <Entered> for more info): Nutritional Asmnt/Malnutrition Start: 05/11/18 16: 42 Text: Status: Complete Freq: Protocol: Document 05/11/18 16:48 [id number] (Rec: 05/11/18 16:53 DIANA [id number]) Nutritional Asmnt/Malnutrition Patient General Information Nutritional Screening Moderate Risk Diagnosis atypical chest pain Pertinent Medical Hx/Surgical Hx HTN Subjective Information pt was NPO today for possible sugery bullectomy. Per nurse note, surgery is rescheduled on Monday. Per EMR, PO intake was 100%. Current Diet Order/ Nutrition Support cardiac Pertinent Medications D5-0.9%ns, levaquin Pertinent Labs 05/11 Na 135, K 3.4, glucose 99 Nutritional Hx/Data Height 1.75 m Height (Calculated Centimeters) 175.3 Current Weight (lbs) 91.172 kg Weight (Calculated Kilograms) 91.2 Weight (Calculated Grams) 14890.1 Shirley Body Weight 160 Body Mass Index (BMI) 29.7 Weight Status Overweight GI Symptoms GI Symptoms None Last BM 05/11 Difficult in: None Skin Integrity/Comment: intact Current %PO Good (75-100%) Estimated Nutritional Goals BEE in Kcals: Adj wt of IBW Calories/Kcals/Kg 25-30 Kcals Calculated 4553-9563 Protein: Adj wt of IBW Protein g/k Protein Calculated 73 Fluid: ml 1925-2310ml (1ml/kcal) Nutritional Problem No current Nutrition Prob Problem N/A Malnutrition Alert Is there a minimum of two criteria No selected? Query Text:Check all the applicable criteria. A minimum of two criteria are recommended for diagnosis of either severe or non-severe malnutrition. Malnutrition Related to Morbid Obesity Malnutrition related to morbid obesity No Intervention/Recommendation Comments 1. Continue with current diet as ordered. 2. Monitor PO intake, wt, labs and skin integrity 3. F/U as moderate risk in 3-5 days, 05/14-05/16 Expected Outcomes/Goals Expected Outcomes/Goals 1. PO intake to meet at least 75% of nutritional needs. 2. Wt stability, skin to remain intact, labs to approach WNL.
--- NOTE | 2018-05-15 11:17 | Discharge Summary ---
General Discharge Summary - Discharge Summary Date of Admission: 05/08/18 Admitting Diagnosis: Pneumothorax. HTN Discharge Date: 05/15/18 Discharge Diagnosis: Pneumothorax resolved, HTN Laboratory Findings: Laboratory Results - last 24 hr 05/15/18 05/15/18 05:25 05:25 WBC 5.3 RBC 4.97 Hgb 14.2 Hct 42.8 MCV 86.1 MCH 28.5 MCHC Differential 33.1 RDW 12.6 Plt Count 284 MPV 8.7 Neutrophils % 27.0 L Lymphocytes % 55.2 H Monocytes % 9.9 Eosinophils % 7.1 H Basophils % 0.8 Sodium 139 Potassium 4.0 Chloride 103 Carbon Dioxide 30.9 Anion Gap 9.1 BUN 15 Creatinine 1.2 Est GFR ( Amer) > 60.0 Est GFR (Non-Af Amer) > 60.0 BUN/Creatinine Ratio 12.5 Glucose 93 Calcium 9.3 Total Bilirubin 0.5 AST 20 ALT 15 Alkaline Phosphatase 68 Total Protein 7.1 Albumin 3.8 L Globulin 3.3 Albumin/Globulin Ratio 1.2 Hospital Course: Patient was hospitalized and he responded to treatment, Treatment: Chest tube, Nasal O2, Breathing treatment, continue with home medications and pain control Disposition: PT DISCHARGED HOME Activity: As Tolerated Discharge Diet: 2 Gram Sodium Consults and Follow-Up: RIGOBERTO MERCEDES [Other] not on staff,PCP is [Primary Care Provider] - Consulting Speciality: Pulmonary, Other (PCP) Instructions: Chest Tube
== END 2018-05-15 10:55 | disposition home or self-care (01) | DRG 143 ==
LOC: ER 16:38 → TELE 19:16 → ICU 05-09 09:33 → TELE 05-14 14:38
PROVIDERS: ADMIT General Practice; ATTEND General Practice
PROC: 0W9930Z Drainage of Right Pleural Cavity with Drainage Device, Percutaneous Approach (ICD-10-PCS; principal; 2018-05-09)
DX: J93.83 Other pneumothorax (principal); J43.9 Emphysema, unspecified; E78.5 Hyperlipidemia, unspecified; I10 Essential (primary) hypertension; I20.9 Angina pectoris, unspecified; E87.6 Hypokalemia; R91.1 Solitary pulmonary nodule; Z82.49 Family history of ischemic heart disease and other diseases of the circulatory system; Z87.891 Personal history of nicotine dependence
CPT/HCPCS: 36415-UA; 71045-TC; 71250-TC; 80048-TC; 80053-TC; 80061-TC; 82550-TC; 82948-90; 83880-TC; 84484-TC; 85007-TC; 85025-TC; 85027-TC; 85379-TC; 85610-TC; 86850-TC; 86900-TC; 86901-TC; 93005; 94640; 94760; J1170; J1956; J2001; J2405; J3480; J7040; J7042; X7704; Z7610

== ENCOUNTER 2018-05-23 15:59 | Inpatient (IN) | payer MEDICAID ==
--- NOTE | 2018-05-23 17:11 | ED Physician Chart ---
ED Chief Complaint/HPI - Patient Information Date Seen:: 05/23/18 Time Seen:: 16:15 Chief Complaint:: Dyspnea History of Present Illness:: onset x 3 days of dyspnea and cough; pt denies trauma, H/As, S/T, neck pain, C/P , Abd. Pain, A/N/V/D/C, fever, chills, or urinary s/s Allergies:: Allergies Allergy/AdvReac Type Severity Reaction Status Date / Time No Known Allergies Allergy Verified 05/08/18 18:01 Vitals:: Vital Signs - 8 hr 05/23/18 16:18 Temp 98.5 F HR 88 RR 16 BP 117/86 O2 Sat % 93 Historian:: Patient, Family Member Review:: Nurse's Note Reviewed, Old Chart Reviewed ED Review of Systems - Review of Systems General/Constitutional: No fever, No chills, No weight loss, No weakness, No diaphoresis, No edema, No loss of appetite Skin: No skin lesions, No rash, No bruising Head: No headache, No light-headedness Eyes: No loss of vision, No pain, No diplopia ENT: No earache, No nasal drainage, No sore throat, No tinnitus Neck: No neck pain, No swelling, No thyromegaly, No stiffness, No mass noted Cardio Vascular: No chest pain, No palpitations, No PND, No orthopnea, No edema Pulmonary: SOB, Cough, No cough, No sputum, No wheezing GI: No nausea, No vomiting, No diarrhea, No pain, No melena, No hematochezia, No constipation, No hematemesis G/U: No dysuria, No frequency, No hematuria, No nacturia Musculoskeletal: No bone or joint pain, No back pain, No muscle pain Endocrine: No polyuria, No polydipsia Psychiatric: No prior psych history, No depression, No anxiety, No suicidal ideation, No homicidal ideation, No auditory hallucination, No visual hallucination Hematopoietic: No bruising, No lymphadenopathy Allergic/Immuno: No urticaria, No angioedema Neurological: No syncope, No focal symptoms, No weakness, No paresthesia, No headache, No seizure, No dizziness, No confusion, No vertigo ED Past Medical History - Past Medical History Obtainable: Yes Past Medical History: HTN Family History: HTN Social History: Non Smoker, No Alcohol, No Drug Use, Surgical History: None Psychiatricy History: None Medication: Reviewed Family Medical History - Family Member Mother History Unknown: Yes Living Status: Hx Family Cancer: Yes (Breast Cancer) Hx Family Coronary Artery Disease: No Hx Family Congestive Heart Failure: No Hx Family Hypertension: Yes Hx Family Stroke: No Hx Family Diabetes: No Hx Family Seizures: No Hx Family Dementia: Yes Hx Family AIDS: No Hx Family HIV: No Hx Family COPD: No Hx Family Hepatitis: No Hx Family Psychiatric Problems: No Hx Family Tuberculosis: No Father History Unknown: Yes Living Status: Hx Family Stroke: Yes ED Physical Exam - Physical Examination General/Constitutional: Awake, Well-developed, well-nourished, Alert, No distress, GCS 15, Non-toxic appearing, Ambulatory Head: Atraumatic Eyes: Lids, conjuctiva normal, PERRL, EOMI Skin: Nl inspection, No rash, No skin lesions, No ecchymosis, Well hydrated, No lymphadenopathy ENMT: External ears, nose nl, TM canals nl, Nasal exam nl, Lips, teeth, gums nl , Oropharynx nl, Tonsils nl Neck: Nontender, Full ROM w/o pain, No JVD, No nuchal rigidity, No bruit, No mass, No stridor Respiratory: Nl effort/Exclusion, Clear to Auscultation, No Wheeze/Rhonchi/Rales Other Respiratory comments:: Lungs: Decreased Breath Sounds on the Right Side Cardio Vascular: RRR, No murmur, gallop, rubs, NL S1 S2, Carotid/Femoral/Distal pulses equal bilaterally GI: No tenderness/rebounding/guarding, No organomegaly, No hernia, Normal BS's, Nondistended, No mass/bruits, No McBurney tenderness : No CVA tenderness Extremities: No tenderness or effusion, Full ROM, normal strength in all extremities, No edema, Normal digits & nails Neuro/Psych: Alert/oriented, DTR's symmetric, Normal sensory exam, Normal motor strength, Judgement/insight normal, Mood normal, Normal gait, No focal deficits Misc: Normal back, No paraspinal tenderness ED Labs/Radiology/EKG Results - Lab Results Comments:: as noted - Radiology Results Comments:: CXR: + Right Pneumothorax - EKG Interpretations EKG Time:: 16:40 Rate & Rhythm: 83; NSR Comments:: non-specific st-t changes ED Septic Shock - . Is Septic Shock (SBP<90, OR Lactate>4 mmol\L) present?: No - <6hrs of presentation: Vital Signs: Vital Signs - 8 hr 05/23/18 16:18 Temp 98.5 F HR 88 RR 16 BP 117/86 O2 Sat % 93 ED Reassessment (Disposition) - Reassessment Reassessment Condition:: Improved - Diagnosis Diagnosis:: Pneumothorax; Cough; Dyspnea - Aftercare/Follow up Instructions Aftercare/Follow-Up Instructions:: Counseled pt regarding lab results/diagnosis & need follow up, Counseled pt & family regarding lab results/diagnosis & need follow up - Patient Disposition Discharge/Transfer:: Acute Care w/in this hosp Accepting Physician:: Dr. Lester Time Called:: 1700 Time Responded:: 17:00 Admitted to:: Telemetry Spoke to:: Dr. Lester Admitting Medical Physician:: Dr. Lester Condition at Disposition:: Stable, Improved
[2018-05-23 17:19] LABS: % BASOPHILS 1.5 % (0.0-2.0); % LYMPHOCYTES 52.3 % (20.0-50.0); % MONOCYTES 8.1 % (2.0-10.0); % NEUTROPHILS 32.1 % (40.0-80.0); BASOPHILE ABSOLUTE 0.1 Th/cumm (0-0.2); EOSINOPHILE ABSOLUTE 0.4 Th/cmm (0.1-0.4); HEMATOCRIT 45.3 % (41.0-60); HEMOGLOBIN 15.2 gm/dL (12-16); MEAN CELL VOLUME 84.3 fl (80-99); MEAN CORPUSCULAR HEMOGLOBIN 28.3 pg (26.0-30.0); MEAN CORPUSCULAR HGB CONC 33.6 pg (28.0-36.0); MEAN PLATELET VOLUME 8.6 fl; MONOCYTE ABSOLUTE 0.5 Th/cmm (0.3-1.0); NEUTROPHILE ABSOLUTE 1.9 Th/cmm (1.8-8.0); PLATELET COUNT 289 Th/cmm (150-400); RED BLOOD COUNT 5.37 Mil/cmm (4.30-5.70); WHITE BLOOD COUNT 5.9 Th/cmm (4.8-10.8)
[2018-05-23 17:38] LABS: INR 0.97 (0.5-1.4); PROTHROMBIN TIME (TEST) 10.1 SECONDS (9.5-11.5)
[2018-05-23 17:39] LABS: ALB/GLOB RATIO 1.3 (1.0-1.8); ALBUMIN 4.1 gm/dL (4.2-5.5); ALKALINE PHOSPHATASE 82 U/L (34-104); ANION GAP 11.2 (7.0-16.0); BILIRUBIN,TOTAL 0.3 mg/dL (0.3-1.0); BUN - UREA NITROGEN 15 mg/dL (7-25); CALCIUM SERUM 9.4 mg/dL (8.6-10.3); CARBON DIOXIDE 25.9 mEq/L (21.0-31.0); CHLORIDE 104 mEq/L (98-107); CHOLESTEROL 216 mg/dL (<200); CREATININE - SERUM 1.4 mg/dL (0.7-1.3); CREATININE KINASE 148 U/L (30-223); GFR AFRICAN-AMERICAN > 60.0 ml/min (>90); GFR NON AFRICAN-AMERICAN 56.6 ml/min; GLUCOSE 111 mg/dL (70-105); HDL -HIGH DENSITY LIPOPROTEIN 49 mg/dL (23-92); POTASSIUM SERUM 3.1 mEq/L (3.5-5.1); SGOT 20 U/L (13-39); SGPT/ALT 18 U/L (7-52); SODIUM SERUM 138 mEq/L (136-145); TOTAL PROTEIN,SERUM 7.3 gm/dL (6.0-8.3); TRIGLYCERIDES 114 mg/dL (<150)
[2018-05-23] MEDS ORDERED: Sodium Chloride 0.9% 1,000 ML IV SCH (18:37)
[2018-05-23 19:26] VITALS: BP 128/94
[2018-05-23] MEDS ORDERED: Pneumococcal Vaccine 0.5 mL Vial IM ONE (19:39)
[2018-05-23] MEDS: KCL 20mEq/100mL Premix 20 MEQ/100 ML PIGGYBACK IV SCH ×2 (20:18→22:49)
[2018-05-23] MEDS: Sodium Chloride 0.9% 1,000 ML IV SCH (20:21)
[2018-05-24 06:43] LABS: INR 0.95 (0.5-1.4); PROTHROMBIN TIME (TEST) 9.9 SECONDS (9.5-11.5)
[2018-05-24 06:52] LABS: % BASOPHILS 1.4 % (0.0-2.0); % EOSINOPHILS 7.6 % (0.0-5.0); % LYMPHOCYTES 51.5 % (20.0-50.0); % MONOCYTES 8.7 % (2.0-10.0); % NEUTROPHILS 30.8 % (40.0-80.0); BASOPHILE ABSOLUTE 0.1 Th/cumm (0-0.2); EOSINOPHILE ABSOLUTE 0.4 Th/cmm (0.1-0.4); HEMATOCRIT 42.6 % (41.0-60); HEMOGLOBIN 14.4 gm/dL (12-16); LYMPHOCYTE ABSOLUTE 2.6 Th/cmm (1.5-3.0); MEAN CELL VOLUME 84.8 fl (80-99); MEAN CORPUSCULAR HEMOGLOBIN 28.6 pg (26.0-30.0); MEAN CORPUSCULAR HGB CONC 33.7 pg (28.0-36.0); MEAN PLATELET VOLUME 8.9 fl; MONOCYTE ABSOLUTE 0.5 Th/cmm (0.3-1.0); NEUTROPHILE ABSOLUTE 1.6 Th/cmm (1.8-8.0); PLATELET COUNT 273 Th/cmm (150-400); RED BLOOD COUNT 5.03 Mil/cmm (4.30-5.70); RED CELL DISTRIBUTION WIDTH 12.6 % (11.5-20.0); WHITE BLOOD COUNT 5.2 Th/cmm (4.8-10.8)
[2018-05-24 07:08] LABS: ALB/GLOB RATIO 1.2 (1.0-1.8); ALBUMIN 3.7 gm/dL (4.2-5.5); ALKALINE PHOSPHATASE 66 U/L (34-104); ANION GAP 10.5 (7.0-16.0); BILIRUBIN,TOTAL 0.6 mg/dL (0.3-1.0); BUN - UREA NITROGEN 13 mg/dL (7-25); CARBON DIOXIDE 26.5 mEq/L (21.0-31.0); CHLORIDE 106 mEq/L (98-107); CREATININE - SERUM 1.2 mg/dL (0.7-1.3); GFR AFRICAN-AMERICAN > 60.0 ml/min (>90); GFR NON AFRICAN-AMERICAN > 60.0 ml/min; GLUCOSE 91 mg/dL (70-105); SGOT 17 U/L (13-39); SGPT/ALT 14 U/L (7-52); SODIUM SERUM 139 mEq/L (136-145); TOTAL PROTEIN,SERUM 6.7 gm/dL (6.0-8.3)
--- NOTE | 2018-05-24 08:12 | Diagnostic Imaging Report ---
CHEST X-RAY: AP view INDICATION: Pneumothorax COMPARISON: Chest x-ray 05/23/2018 FINDINGS: Large right pneumothorax is noted without change since prior exam. There is minimal leftward mediastinal shift. Right basal consolidative changes are noted. Again seen is 1.5 cm nodule of the left midlung. IMPRESSION: Large right pneumothorax as seen on prior examination. There is minimal leftward mediastinal shift. Recommend clinical correlation and chest tube placement. Right basal consolidative changes. Left midlung 1.5 cm nodule. Please refer to previous CT chest for further details of this finding.
--- NOTE | 2018-05-24 08:12 | Diagnostic Imaging Report ---
Chest x-ray single view INDICATION: Pneumothorax COMPARISON: Chest x-ray 05/23/2018 FINDINGS: There has been interval development of a Large right pneumothorax. There is minimal leftward mediastinal shift. Right basal consolidative changes are noted. Again seen is 1.5 cm nodule of the left midlung. IMPRESSION: Large right pneumothorax. There is minimal leftward mediastinal shift. Recommend clinical correlation and chest tube placement. Right basal consolidative changes. Left midlung 1.5 cm nodule. Please refer to previous CT chest for further details of this finding.
[2018-05-24] MEDS: Sodium Chloride 0.9% 1,000 ML IV SCH (08:25)
--- NOTE | 2018-05-24 11:20 | Consultation ---
DATE OF CONSULTATION: 05/24/2018 THORACIC SURGICAL CONSULT REFERRING PHYSICIAN: Dr. Lester. REASON FOR CONSULTATION: Chest pain and shortness of breath. Thank you for referring this patient to me. HISTORY OF PRESENT ILLNESS: This is a 53-year-old male who was here 2 weeks ago because of spontaneous pneumothorax involving the right chest. The patient was treated with chest tube placement and the lung expanded and was discharged. PAST MEDICAL HISTORY: Includes smoking and a nodule in the left mid lung was discovered in [address]-guided biopsy was done at , which turned out to be benign. Size of the mass then was a nickel and at 1.[address] scan. This appears to be just minimally increased. The laboratory studies today, the CBC is normal. Lymphocytes are elevated to 52%. Creatinine slightly high at 1.4, potassium slightly low at 3.1. The chest x-ray shows 70%-80% pneumothorax on the right side. PHYSICAL EXAMINATION: The patient is not short of breath. There is markedly decreased breath sounds on the right side. RECOMMENDATION: Video-assisted thoracoscopic surgery with wedge resection of the bulla, which is evident in the upper lobe and at the midlung anterior aspect also. These findings were discussed with Dr. Meléndez, radiologist. There is a high probability of open thoracotomy if the mid lung bulla is not visible or accessible by video surgery. If multiple other bullae are noted, recommendations for pleurodesis will be done. Informed consent discussed with the patient and possible complications might include persistent air leak requiring repeat surgery, bronchopleural fistula and infections and bleeding requiring other interventions. [facility]# [id number]
--- NOTE | 2018-05-24 11:33 | History and Physical ---
History of Present Illness - HPI Chief Complaint: Chest pressure and SOB HPI: Fe days ago patient had a Pneumothorax and chest tube was placed, A bulla was found. Pneumothorax was resolved but patient came back with chest pressure, SOB and Pneumothorax. 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 Pertinent Hx GI: Report: No Pertinent Hx Psych: Report: No Pertinent Hx Musculoskeletal: Report: No Pertinent Hx Rheumatologic: Report: No pertinent Hx Infectious Disease: Report: No Pertinent Hx Renal/: Report: No Pertinent Hx Endocrine: Report: No Pertinent Hx Dermatology: Report: No Pertinent Hx - Past Surgical History Past Surgical History: No pertinent Hx Family Medical History - Family Member Mother History Unknown: Yes Living Status: Hx Family Cancer: Yes (Breast Cancer) Hx Family Coronary Artery Disease: No Hx Family Congestive Heart Failure: No Hx Family Hypertension: Yes Hx Family Stroke: No Hx Family Diabetes: No Hx Family Seizures: No Hx Family Dementia: Yes Hx Family AIDS: No Hx Family HIV: No Hx Family COPD: No Hx Family Hepatitis: No Hx Family Psychiatric Problems: No Hx Family Tuberculosis: No Father History Unknown: Yes Living Status: Hx Family Stroke: Yes Social History Smoke: Quit Alcohol: None Drugs: None Lives: With Family Domestic Violence: Negative - Medications Home Medications: Home Medication Medication Instructions Recorded Type Hydrochlorothiazide 1 tab PO DAILY 05/23/18 History amLODIPine Besylate [Norvasc*] 1 tab PO DAILY 05/23/18 History - Allergies Allergies/Adverse Reactions: Allergies Allergy/AdvReac Type Severity Reaction Status Date / Time No Known Allergies Allergy Verified 05/08/18 18:01 Review of Systems - Review of Systems Constitutional: Report: No Significant Eyes: Report: No Significant ENT: Report: No Significant Respiratory: Report: SOB with Excertion Cardiovascular: Report: No Significant Gastrointestinal: Report: No Significant Genitourinary: Report: No Significant Musculoskeletal: Report: No Significant Skin: Report: No Significant Neurological: Report: No Significant Physical Exam - Physical Exam HEENT: Report: Ears Nose Throat within normal limits Neck: Report: Within normal limits Cardiovascular Systems: Report: Regular, Rate and Rhythm Respiratory: Report: Other (No air entryin right hemithorax) Abdomen: Report: Non-tender to palpation Back: Report: Inspection of back is within normal limits. Extremities: Report: Non-tender to palpation. Skin: Report: Color of skin is within normal limits, Warm, Dry Neuro/Psych: Report: Mood affect is within normal limits - Lab Results All Lab Results last 24 hours: Laboratory Results - last 24 hr 05/23/18 05/23/18 05/23/18 16:56 16:56 16:56 WBC 5.9 RBC 5.37 Hgb 15.2 Hct 45.3 MCV 84.3 MCH 28.3 MCHC Differential 33.6 RDW 12.0 Plt Count 289 MPV 8.6 Neutrophils % 32.1 L Lymphocytes % 52.3 H Monocytes % 8.1 Eosinophils % 6.0 H Basophils % 1.5 PT 10.1 INR 0.97 Sodium 138 Potassium 3.1 L Chloride 104 Carbon Dioxide 25.9 Anion Gap 11.2 BUN 15 Creatinine 1.4 H Est GFR ( Amer) > 60.0 Est GFR (Non-Af Amer) 56.6 BUN/Creatinine Ratio 10.7 Glucose 111 H POC Glucose Calcium 9.4 Total Bilirubin 0.3 AST 20 ALT 18 Alkaline Phosphatase 82 Creatine Kinase 148 Troponin I B-Natriuretic Peptide Total Protein 7.3 Albumin 4.1 L Globulin 3.2 Albumin/Globulin Ratio 1.3 Triglycerides 114 Cholesterol 216 H LDL Cholesterol Direct 144 HDL Cholesterol 49 Blood Type Antibody Screen 05/23/18 05/23/18 05/23/18 16:56 16:56 20:50 WBC RBC Hgb Hct MCV MCH MCHC Differential RDW Plt Count MPV Neutrophils % Lymphocytes % Monocytes % Eosinophils % Basophils % PT INR Sodium Potassium Chloride Carbon Dioxide Anion Gap BUN Creatinine Est GFR ( Amer) Est GFR (Non-Af Amer) BUN/Creatinine Ratio Glucose POC Glucose Calcium Total Bilirubin AST ALT Alkaline Phosphatase Creatine Kinase Troponin I < 0.01 L B-Natriuretic Peptide < 5.0 L Total Protein Albumin Globulin Albumin/Globulin Ratio Triglycerides Cholesterol LDL Cholesterol Direct HDL Cholesterol Blood Type O POSITIVE Antibody Screen NEGATIVE 05/24/18 05/24/18 05/24/18 05:38 05:38 05:38 WBC 5.2 RBC 5.03 Hgb 14.4 Hct 42.6 MCV 84.8 MCH 28.6 MCHC Differential 33.7 RDW 12.6 Plt Count 273 MPV 8.9 Neutrophils % 30.8 L Lymphocytes % 51.5 H Monocytes % 8.7 Eosinophils % 7.6 H Basophils % 1.4 PT 9.9 INR 0.95 Sodium 139 Potassium 4.0 Chloride 106 Carbon Dioxide 26.5 Anion Gap 10.5 BUN 13 Creatinine 1.2 Est GFR ( Amer) > 60.0 Est GFR (Non-Af Amer) > 60.0 BUN/Creatinine Ratio 10.8 Glucose 91 POC Glucose Calcium 9.0 Total Bilirubin 0.6 AST 17 ALT 14 Alkaline Phosphatase 66 Creatine Kinase Troponin I B-Natriuretic Peptide Total Protein 6.7 Albumin 3.7 L Globulin 3.0 Albumin/Globulin Ratio 1.2 Triglycerides Cholesterol LDL Cholesterol Direct HDL Cholesterol Blood Type Antibody Screen 05/24/18 11:21 WBC RBC Hgb Hct MCV MCH MCHC Differential RDW Plt Count MPV Neutrophils % Lymphocytes % Monocytes % Eosinophils % Basophils % PT INR Sodium Potassium Chloride Carbon Dioxide Anion Gap BUN Creatinine Est GFR ( Amer) Est GFR (Non-Af Amer) BUN/Creatinine Ratio Glucose POC Glucose 87 Calcium Total Bilirubin AST ALT Alkaline Phosphatase Creatine Kinase Troponin I B-Natriuretic Peptide Total Protein Albumin Globulin Albumin/Globulin Ratio Triglycerides Cholesterol LDL Cholesterol Direct HDL Cholesterol Blood Type Antibody Screen - Assessment Assessment: Patient is awake, alert, calm in no acuter distress. Dx: Pneumothorax, Lung bulla. - Plan Plan: Patient is continue with home Meds, IV NS, Consult with surgery is requested for Pulmonary surgery. Will continue to monitor.
[2018-05-24] MEDS ORDERED: DOXYCYCLINE HYCLATE IV ONE (12:00)
[2018-05-24] MEDS ORDERED: SODIUM CHLORIDE 0.9% IV ONE (12:00)
[2018-05-24] MEDS ORDERED: Neostigmine 10mg/10mL Vial ONE (13:36)
[2018-05-24] MEDS ORDERED: fentaNYL Citrate 100 mcg/2mL Vial ONE (13:36)
[2018-05-24] MEDS ORDERED: Midazolam 1mg/ml 2 ml vial IV ONE ×2 (14:37→14:47)
[2018-05-24] MEDS ORDERED: HYDROmorphone 1 mg/mL 1mL Syr ONE ×2 (14:48→14:49)
[2018-05-24] MEDS ORDERED: HYDROmorphone 2 mg/mL 1mL Vial ONE (15:01)
[2018-05-24] MEDS ORDERED: EPINEPHRine /Lidocaine 1% 20 mL Vial INJ ONE (15:03)
--- NOTE | 2018-05-24 15:09 | Diagnostic Imaging Report ---
CHEST X-RAY: AP view INDICATION: Right chest tube placement COMPARISON: Chest x-ray earlier the same day FINDINGS: Right chest tube is in place with tip along the right apex with associated reexpansion of the right lung. No gross pneumothorax is identified. Postsurgical changes are seen with surgical clips along the right apex and right medial lung zone. Congestive changes are seen with bilateral infiltrates. Mild cardiomegaly is noted. IMPRESSION: Status post right lung surgery with right chest tube terminating along the right apex. No evidence of pneumothorax. Mild congestive changes and hazy bilateral infiltrates.
[2018-05-24] MEDS: Levofloxacin 750mg/150mL 750 MG/150 ML BAG IV SCH (17:46)
--- NOTE | 2018-05-24 17:51 | Operative Report ---
DATE OF SURGERY: 05/24/2018 PREOPERATIVE DIAGNOSES: 1. Recurrent right spontaneous pneumothorax. 2. History of smoking. 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 ESTIMATED BLOOD LOSS: 15 mL. SURGEON: Lulu Choi M.D. MACHINE FITTER: Dr. Crane. ANESTHESIA: General anesthesia. ANESTHESIOLOGIST: Teresa___ Jose Carlos. OPERATION DONE: Video-assisted right thoracoscopic surgery with: 1. Right upper bullectomy. 2. Right middle lobe bullectomy. 3. Pleurodesis with doxycycline. 4. Application of CoSeal (sealant). INDICATIONS FOR SURGERY: Recurrent spontaneous pneumothorax, right lung. CT scan showing bullae in the right upper lobe and middle lobe. Also, a 1.5 cm nodule in the left lung, which had a CT-guided biopsy 12 years ago at [facility] which was benign. Size has not increased. OPERATIVE FINDINGS: Large bullae in the upper lobe and the middle lobe seen on CT scan and in chest x-ray. Informed consent discussed with the patient, the and the sister regarding the risks and complications with the operation with or without pleurodesis. They have agreed to continue with pleurodesis as necessary. PROCEDURE: The patient was given general anesthesia via double lumen tube. The right chest was elevated, prepped with Betadine and draped in appropriate manner. A 10 mm trocar was placed in the seventh intercostal space at the anterior axillary line. The scope was introduced following collapse of the right lung. The lung was slightly expanded and bullae were identified and photographs taken. EnSeal was then placed across the identified bulla, first in the middle lobe and then in the upper lobe. Following this resection, the staple line was identified and a CoSeal was applied. The specimens were sent as separate in separate containers. A 100 mL of doxycycline was placed in the right chest, following which Persian 24 chest tube was inserted in the anterior axillary line. It was anchored in place with 2-0 nylon. This connected to underwater seal and suction. The patient tolerated the procedure well and will be sent to ICU for monitoring. JOB# [id number] [facility]ENTER[facility]
[2018-05-24] MEDS: Morphine Sulfate 2 mg/mL 1mL Syr IVP PRN (21:05)
[2018-05-25] MEDS: Sodium Chloride 0.9% 1,000 ML IV SCH ×2 (01:01→14:17)
[2018-05-25] MEDS: Morphine Sulfate 2 mg/mL 1mL Syr IVP PRN (01:54)
[2018-05-25 05:04] LABS: % BASOPHILS 0.7 % (0.0-2.0); % EOSINOPHILS 1.9 % (0.0-5.0); % LYMPHOCYTES 28.8 % (20.0-50.0); % MONOCYTES 7.9 % (2.0-10.0); % NEUTROPHILS 60.7 % (40.0-80.0); BASOPHILE ABSOLUTE 0.1 Th/cumm (0-0.2); EOSINOPHILE ABSOLUTE 0.2 Th/cmm (0.1-0.4); HEMATOCRIT 41.6 % (41.0-60); HEMOGLOBIN 13.6 gm/dL (12-16); LYMPHOCYTE ABSOLUTE 2.4 Th/cmm (1.5-3.0); MEAN CORPUSCULAR HEMOGLOBIN 28.2 pg (26.0-30.0); MEAN CORPUSCULAR HGB CONC 32.8 pg (28.0-36.0); MEAN PLATELET VOLUME 8.6 fl; MONOCYTE ABSOLUTE 0.7 Th/cmm (0.3-1.0); NEUTROPHILE ABSOLUTE 4.9 Th/cmm (1.8-8.0); PLATELET COUNT 239 Th/cmm (150-400); RED BLOOD COUNT 4.84 Mil/cmm (4.30-5.70); RED CELL DISTRIBUTION WIDTH 12.6 % (11.5-20.0); WHITE BLOOD COUNT 8.3 Th/cmm (4.8-10.8)
[2018-05-25] MEDS: HYDROmorphone 2 mg/mL 1mL Vial IVP PRN ×4 (05:21→20:07)
[2018-05-25 05:24] LABS: ALB/GLOB RATIO 1.2 (1.0-1.8); ALBUMIN 3.2 gm/dL (4.2-5.5); ALKALINE PHOSPHATASE 57 U/L (34-104); BILIRUBIN,TOTAL 0.7 mg/dL (0.3-1.0); BUN - UREA NITROGEN 8 mg/dL (7-25); CALCIUM SERUM 7.8 mg/dL (8.6-10.3); CARBON DIOXIDE 23.9 mEq/L (21.0-31.0); CHLORIDE 108 mEq/L (98-107); GFR AFRICAN-AMERICAN > 60.0 ml/min (>90); GFR NON AFRICAN-AMERICAN > 60.0 ml/min; GLUCOSE 96 mg/dL (70-105); POTASSIUM SERUM 3.9 mEq/L (3.5-5.1); SGOT 19 U/L (13-39); SGPT/ALT 12 U/L (7-52); SODIUM SERUM 138 mEq/L (136-145); TOTAL PROTEIN,SERUM 5.9 gm/dL (6.0-8.3)
--- NOTE | 2018-05-25 08:18 | Diagnostic Imaging Report ---
CHEST X-RAY: AP view INDICATION: Pneumothorax COMPARISON: 05/24/2018 and 1458 FINDINGS: Right chest tube is stable. Postsurgical changes right lung are noted. Right effusion and right lung infiltrates are noted. Left midlung 1.5 cm nodule is noted. Left basal atelectasis versus scarring is noted. No pneumothorax identified. Heart size is normal. IMPRESSION: Postsurgical changes of right chest with right chest tube noted. No evidence of pneumothorax. Small right effusion and right lung infiltrates. Left midlung nodule as seen on previous exams. Neoplastic etiology cannot be excluded.
--- NOTE | 2018-05-25 09:16 | General Progress Note ---
Subjective - Review of Systems Service Date: 05/25/18 Subjective: I am OK Objective - Results Result Diagrams: 05/25/18 04:35 05/25/18 04:35 Recent Labs: Laboratory Last Values WBC 8.3 Th/cmm (4.8-10.8) 05/25/18 04:35 RBC 4.84 Mil/cmm (4.30-5.70) 05/25/18 04:35 Hgb 13.6 gm/dL (12-16) 05/25/18 04:35 Hct 41.6 % (41.0-60) 05/25/18 04:35 MCV 86.0 fl (80-99) 05/25/18 04:35 MCH 28.2 pg (26.0-30.0) 05/25/18 04:35 MCHC Differential 32.8 pg (28.0-36.0) 05/25/18 04:35 RDW 12.6 % (11.5-20.0) 05/25/18 04:35 Plt Count 239 Th/cmm (150-400) 05/25/18 04:35 MPV 8.6 fl 05/25/18 04:35 Neutrophils % 60.7 % (40.0-80.0) 05/25/18 04:35 Lymphocytes % 28.8 % (20.0-50.0) 05/25/18 04:35 Monocytes % 7.9 % (2.0-10.0) 05/25/18 04:35 Eosinophils % 1.9 % (0.0-5.0) 05/25/18 04:35 Basophils % 0.7 % (0.0-2.0) 05/25/18 04:35 PT 9.9 SECONDS (9.5-11.5) 05/24/18 05:38 INR 0.95 (0.5-1.4) 05/24/18 05:38 Sodium 138 mEq/L (136-145) 05/25/18 04:35 Potassium 3.9 mEq/L (3.5-5.1) 05/25/18 04:35 Chloride 108 mEq/L (98-107) H 05/25/18 04:35 Carbon Dioxide 23.9 mEq/L (21.0-31.0) 05/25/18 04:35 Anion Gap 10.0 (7.0-16.0) 05/25/18 04:35 BUN 8 mg/dL (7-25) 05/25/18 04:35 Creatinine 1.0 mg/dL (0.7-1.3) 05/25/18 04:35 Est GFR ( Amer) > 60.0 ml/min (>90) 05/25/18 04:35 Est GFR (Non-Af Amer) > 60.0 ml/min 05/25/18 04:35 BUN/Creatinine Ratio 8.0 05/25/18 04:35 Glucose 96 mg/dL (70-105) 05/25/18 04:35 POC Glucose 87 MG/DL (70 - 105) 05/24/18 11:21 Calcium 7.8 mg/dL (8.6-10.3) L 05/25/18 04:35 Total Bilirubin 0.7 mg/dL (0.3-1.0) 05/25/18 04:35 AST 19 U/L (13-39) 05/25/18 04:35 ALT 12 U/L (7-52) 05/25/18 04:35 Alkaline Phosphatase 57 U/L (34-104) 05/25/18 04:35 Creatine Kinase 148 U/L (30-223) 05/23/18 16:56 Troponin I < 0.01 ng/mL (0.01-0.05) L 05/23/18 16:56 B-Natriuretic Peptide < 5.0 pg/mL (5.0-100.0) L 05/23/18 16:56 Total Protein 5.9 gm/dL (6.0-8.3) L 05/25/18 04:35 Albumin 3.2 gm/dL (4.2-5.5) L 05/25/18 04:35 Globulin 2.7 gm/dL 05/25/18 04:35 Albumin/Globulin Ratio 1.2 (1.0-1.8) 05/25/18 04:35 Triglycerides 114 mg/dL (<150) 05/23/18 16:56 Cholesterol 216 mg/dL (<200) H 05/23/18 16:56 LDL Cholesterol Direct 144 mg/dL (75-193) 05/23/18 16:56 HDL Cholesterol 49 mg/dL (23-92) 05/23/18 16:56 Blood Type O POSITIVE 05/23/18 20:50 Antibody Screen NEGATIVE 05/23/18 20:50 - Physical Exam Vitals and I&O: Vital Signs Temp 98.2 F 05/25/18 04:00 Pulse 73 05/25/18 06:00 Resp 14 05/25/18 06:00 BP 133/82 05/25/18 06:00 Pulse Ox 96 05/25/18 06:00 Intake & Output 05/24/18 05/25/18 05/25/18 18:59 06:59 18:59 Intake Total 905 1643.75 Output Total 285 2190 Balance 620 -546.25 Weight (lbs) 92.533 kg 92.986 kg Intake: Intake, IV Amount 905 1523.75 Levofloxacin 750mg/150mL 150 750 mg In 150 ml @ 100 mls/hr IV Q24HR [facility] Rx#: [id number] Sodium Chloride 0.9% 1, 905 1373.75 000 ml @ 75 mls/hr IV . [id number] [facility] Rx#:[id number] Oral 0 120 Output: Chest Tube Drainage 85 190 Right Lateral Chest 85 190 Urine 200 2000 Other: Stool Characteristics Formed Weight Source Bedscale Bedscale Active Medications: Current Medications Acetaminophen (Tylenol) 650 mg PO Q6H PRN PRN Reason: Mild Pain or Fever >101 Stop: 07/22/18 18:19 Hydromorphone HCl (Dilaudid) 2 mg IVP Q4HR PRN PRN Reason: Pain (Severe) Stop: 05/25/18 15:12 Last Admin: 05/25/18 05:21 Dose: 2 mg Sodium Chloride (Nacl 0.9%) 1,000 mls @ 75 mls/hr IV .[id number] [facility] Stop: 07/22/18 18:29 Last Infusion: 05/25/18 06:00 Dose: 75 mls/hr Levofloxacin (Levaquin Pb) 750 mg in 150 mls @ 100 mls/hr IV Q24HR [facility] Stop: 07/23/18 14:59 Last Infusion: 05/24/18 19:16 Dose: Infused Ketorolac Tromethamine (Toradol) 30 mg IV Q6H PRN PRN Reason: Moderate Pain Stop: 07/03/18 14:30 Morphine Sulfate (Morphine) 2 mg IVP Q4HR PRN PRN Reason: Chest Pain Stop: 07/23/18 14:28 Last Admin: 05/25/18 01:54 Dose: 2 mg Trazodone HCl (Desyrel) 50 mg PO HS [facility]; Protocol Stop: 07/22/18 21:59 Last Admin: 05/24/18 21:05 Dose: 50 mg General: Alert, No acute distress HEENT: Atraumatic Neck: Supple Cardiovascular: Regular rate Lungs: Other (Diminished air entry in right hemithorax, Chest tube present. ) Abdomen: Bowel sounds, Soft Extremities: Other (No edema) Neurological: Normal gait Skin: Other (Warm and dry) - Procedures Procedures: Procedures Procedure Code Date DRAINAGE OF R PLEURAL CAV WITH DRAIN DEV, OPEN APPROACH [id number] 05/23/18 DRAINAGE OF R PLEURAL CAV WITH DRAIN DEV, [facility] APPROACH [id number] 05/08/18 RESECTION OF RIGHT MIDDLE LOBE BRONCHUS, [facility] ENDO APPROACH [id number] 05/23/18 RESECTION OF RIGHT UPPER LUNG LOBE, [facility] ENDO APPROACH [id number] 05/23/18 Assessment/Plan - Assessment Assessment: Patient is awake, alert, calm in no acuter distress. Dx: Pneumothorax, Lung bulla. S/P bullectomy - Plan Plan: Patient is continue with home Meds, IV NS, Surgery was done. Patient is breathing well no O2 needed. Will continue to monitor.
[2018-05-25 09:44] LABS: ALLEN TEST YES; pH 7.41 (7.35-7.45)
--- NOTE | 2018-05-25 13:58 | General Progress Note ---
Subjective - Review of Systems Service Date: 05/25/18 Events since last encounter: xray atelectasis, no pneumo doing well Objective - Results Result Diagrams: 05/25/18 04:35 05/25/18 04:35 Recent Labs: Laboratory Last Values WBC 8.3 Th/cmm (4.8-10.8) 05/25/18 04:35 RBC 4.84 Mil/cmm (4.30-5.70) 05/25/18 04:35 Hgb 13.6 gm/dL (12-16) 05/25/18 04:35 Hct 41.6 % (41.0-60) 05/25/18 04:35 MCV 86.0 fl (80-99) 05/25/18 04:35 MCH 28.2 pg (26.0-30.0) 05/25/18 04:35 MCHC Differential 32.8 pg (28.0-36.0) 05/25/18 04:35 RDW 12.6 % (11.5-20.0) 05/25/18 04:35 Plt Count 239 Th/cmm (150-400) 05/25/18 04:35 MPV 8.6 fl 05/25/18 04:35 Neutrophils % 60.7 % (40.0-80.0) 05/25/18 04:35 Lymphocytes % 28.8 % (20.0-50.0) 05/25/18 04:35 Monocytes % 7.9 % (2.0-10.0) 05/25/18 04:35 Eosinophils % 1.9 % (0.0-5.0) 05/25/18 04:35 Basophils % 0.7 % (0.0-2.0) 05/25/18 04:35 PT 9.9 SECONDS (9.5-11.5) 05/24/18 05:38 INR 0.95 (0.5-1.4) 05/24/18 05:38 Specimen Source Arterial 05/25/18 09:35 Sample Site Right Radial 05/25/18 09:35 pH 7.41 (7.35-7.45) 05/25/18 09:35 pCO2 40.0 mmHg (35.0-45.0) 05/25/18 09:35 pO2 52.0 mmHg (80.0-100.0) L 05/25/18 09:35 HCO3 25.2 mEq/L (20.0-26.0) 05/25/18 09:35 Base Excess 0.7 mEq/L (-3.0-3.0) 05/25/18 09:35 O2 Saturation 87.0 % (92.0-100.0) L 05/25/18 09:35 Matt Test YES 05/25/18 09:35 Vent Rate NA 05/25/18 09:35 Inspired O2 21 05/25/18 09:35 Tidal Volume NA 05/25/18 09:35 PEEP NA 05/25/18 09:35 Pressure (ins/psv/peep) NA 05/25/18 09:35 Critical Value E.MONZON 05/25/18 09:35 Sodium 138 mEq/L (136-145) 05/25/18 04:35 Potassium 3.9 mEq/L (3.5-5.1) 05/25/18 04:35 Chloride 108 mEq/L (98-107) H 05/25/18 04:35 Carbon Dioxide 23.9 mEq/L (21.0-31.0) 05/25/18 04:35 Anion Gap 10.0 (7.0-16.0) 05/25/18 04:35 BUN 8 mg/dL (7-25) 05/25/18 04:35 Creatinine 1.0 mg/dL (0.7-1.3) 05/25/18 04:35 Est GFR ( Amer) > 60.0 ml/min (>90) 05/25/18 04:35 Est GFR (Non-Af Amer) > 60.0 ml/min 05/25/18 04:35 BUN/Creatinine Ratio 8.0 05/25/18 04:35 Glucose 96 mg/dL (70-105) 05/25/18 04:35 POC Glucose 87 MG/DL (70 - 105) 05/24/18 11:21 Calcium 7.8 mg/dL (8.6-10.3) L 05/25/18 04:35 Total Bilirubin 0.7 mg/dL (0.3-1.0) 05/25/18 04:35 AST 19 U/L (13-39) 05/25/18 04:35 ALT 12 U/L (7-52) 05/25/18 04:35 Alkaline Phosphatase 57 U/L (34-104) 05/25/18 04:35 Creatine Kinase 148 U/L (30-223) 05/23/18 16:56 Troponin I < 0.01 ng/mL (0.01-0.05) L 05/23/18 16:56 B-Natriuretic Peptide < 5.0 pg/mL (5.0-100.0) L 05/23/18 16:56 Total Protein 5.9 gm/dL (6.0-8.3) L 05/25/18 04:35 Albumin 3.2 gm/dL (4.2-5.5) L 05/25/18 04:35 Globulin 2.7 gm/dL 05/25/18 04:35 Albumin/Globulin Ratio 1.2 (1.0-1.8) 05/25/18 04:35 Triglycerides 114 mg/dL (<150) 05/23/18 16:56 Cholesterol 216 mg/dL (<200) H 05/23/18 16:56 LDL Cholesterol Direct 144 mg/dL (75-193) 05/23/18 16:56 HDL Cholesterol 49 mg/dL (23-92) 05/23/18 16:56 Blood Type O POSITIVE 05/23/18 20:50 Antibody Screen NEGATIVE 05/23/18 20:50 - Physical Exam Vitals and I&O: Vital Signs Temp 97.4 F 05/25/18 08:00 Pulse 66 05/25/18 11:00 Resp 26 05/25/18 11:00 BP 101/57 05/25/18 11:00 Pulse Ox 97 05/25/18 11:00 Intake & Output 05/24/18 05/25/18 05/25/18 18:59 06:59 18:59 Intake Total 905 1643.75 Output Total 285 2190 Balance 620 -546.25 Weight (lbs) 92.533 kg 92.986 kg Intake: Intake, IV Amount 905 1523.75 Levofloxacin 750mg/150mL 150 750 mg In 150 ml @ 100 mls/hr IV Q24HR [facility] Rx#: [id number] Sodium Chloride 0.9% 1, 905 1373.75 000 ml @ 75 mls/hr IV . [id number] [facility] Rx#:[id number] Oral 0 120 Output: Chest Tube Drainage 85 190 Right Lateral Chest 85 190 Urine 200 2000 Other: Stool Characteristics Formed Weight Source Bedscale Bedscale Active Medications: Current Medications Acetaminophen (Tylenol) 650 mg PO Q6H PRN PRN Reason: Mild Pain or Fever >101 Stop: 07/22/18 18:19 Hydromorphone HCl (Dilaudid) 2 mg IVP Q4HR PRN PRN Reason: Pain (Severe) Stop: 05/25/18 15:12 Last Admin: 05/25/18 09:36 Dose: 2 mg Hydromorphone HCl (Dilaudid) 2 mg IVP Q4HR PRN PRN Reason: chest pain Stop: 07/24/18 13:54 Sodium Chloride (Nacl 0.9%) 1,000 mls @ 75 mls/hr IV .[id number] [facility] Stop: 07/22/18 18:29 Last Infusion: 05/25/18 06:00 Dose: 75 mls/hr Levofloxacin (Levaquin Pb) 750 mg in 150 mls @ 100 mls/hr IV Q24HR [facility] Stop: 07/23/18 14:59 Last Infusion: 05/24/18 19:16 Dose: Infused Ketorolac Tromethamine (Toradol) 30 mg IV Q6H PRN PRN Reason: Moderate Pain Stop: 05/29/18 14:30 Morphine Sulfate (Morphine) 2 mg IVP Q4HR PRN PRN Reason: Chest Pain Stop: 07/23/18 14:28 Last Admin: 05/25/18 01:54 Dose: 2 mg Ondansetron HCl (Zofran) 4 mg IV Q4H PRN PRN Reason: Nausea / Vomiting Stop: 07/24/18 09:43 Last Admin: 05/25/18 10:22 Dose: 4 mg Trazodone HCl (Desyrel) 50 mg PO HS [facility]; Protocol Stop: 07/22/18 21:59 Last Admin: 05/24/18 21:05 Dose: 50 mg General: Alert, No acute distress HEENT: Atraumatic Neck: Supple Cardiovascular: Regular rate Lungs: Other (Diminished air entry in right hemithorax, Chest tube present. ) Abdomen: Bowel sounds, Soft Extremities: Other (No edema) Neurological: Normal gait Skin: Other (Warm and dry) - Procedures Procedures: Procedures Procedure Code Date DRAINAGE OF R PLEURAL CAV WITH DRAIN DEV, OPEN APPROACH [id number] 05/23/18 DRAINAGE OF R PLEURAL CAV WITH DRAIN DEV, [facility] APPROACH [id number] 05/08/18 RESECTION OF RIGHT MIDDLE LOBE BRONCHUS, [facility] ENDO APPROACH [id number] 05/23/18 RESECTION OF RIGHT UPPER LUNG LOBE, PER[facility] ENDO APPROACH [id number] 05/23/18
[2018-05-25] MEDS: Levofloxacin 750mg/150mL 750 MG/150 ML BAG IV SCH (14:16)
[2018-05-26] MEDS: HYDROmorphone 2 mg/mL 1mL Vial IVP PRN ×6 (00:11→22:30)
--- NOTE | 2018-05-26 01:24 | Progress Notes ---
DATE: 05/25/2018 PULMONARY PROGRESS NOTE PROBLEM LIST: Status post right thoracoscopic surgery with bullectomy and chemical pleurodesis. SYMPTOMS: Nil, feeling okay, offers no specific new symptoms. Chest tube, there is no leak. PHYSICAL EXAMINATION: VITAL SIGNS: Temperature afebrile, blood pressure 101/57, saturation 97 on room air. IMAGING DATA: Chest x-ray shows some haziness in the right side. LABORATORY DATA: Essentially unremarkable. PO2 is 52 on room air. ASSESSMENT: The patient clinically appears to be stable, improving. PLANS AND SUGGESTIONS: We will go ahead and continue current treatment. Continue supplement oxygen. Repeat another chest x-ray in few days and go from there. Care and plan discussed with the nursing staff as well as Dr. Delgadillo. JOB# [id number]
[2018-05-26] MEDS: Sodium Chloride 0.9% 1,000 ML IV SCH ×2 (03:29→14:27)
[2018-05-26 05:12] LABS: % BASOPHILS 1.1 % (0.0-2.0); % EOSINOPHILS 7.6 % (0.0-5.0); % LYMPHOCYTES 37.8 % (20.0-50.0); % MONOCYTES 9.5 % (2.0-10.0); BASOPHILE ABSOLUTE 0.1 Th/cumm (0-0.2); EOSINOPHILE ABSOLUTE 0.6 Th/cmm (0.1-0.4); HEMATOCRIT 37.4 % (41.0-60); HEMOGLOBIN 12.4 gm/dL (12-16); LYMPHOCYTE ABSOLUTE 2.8 Th/cmm (1.5-3.0); MEAN CORPUSCULAR HEMOGLOBIN 28.5 pg (26.0-30.0); MEAN CORPUSCULAR HGB CONC 33.2 pg (28.0-36.0); MEAN PLATELET VOLUME 8.5 fl; MONOCYTE ABSOLUTE 0.7 Th/cmm (0.3-1.0); NEUTROPHILE ABSOLUTE 3.1 Th/cmm (1.8-8.0); PLATELET COUNT 217 Th/cmm (150-400); RED BLOOD COUNT 4.35 Mil/cmm (4.30-5.70); RED CELL DISTRIBUTION WIDTH 12.8 % (11.5-20.0); WHITE BLOOD COUNT 7.3 Th/cmm (4.8-10.8)
[2018-05-26 05:40] LABS: ALB/GLOB RATIO 1.3 (1.0-1.8); ALBUMIN 3.1 gm/dL (4.2-5.5); ALKALINE PHOSPHATASE 51 U/L (34-104); ANION GAP 7.6 (7.0-16.0); BILIRUBIN,TOTAL 0.6 mg/dL (0.3-1.0); BUN - UREA NITROGEN 7 mg/dL (7-25); CALCIUM SERUM 7.9 mg/dL (8.6-10.3); CARBON DIOXIDE 26.9 mEq/L (21.0-31.0); CHLORIDE 108 mEq/L (98-107); CREATININE - SERUM 1.1 mg/dL (0.7-1.3); GFR AFRICAN-AMERICAN > 60.0 ml/min (>90); GFR NON AFRICAN-AMERICAN > 60.0 ml/min; GLUCOSE 98 mg/dL (70-105); POTASSIUM SERUM 3.5 mEq/L (3.5-5.1); SGOT 20 U/L (13-39); SGPT/ALT 11 U/L (7-52); SODIUM SERUM 139 mEq/L (136-145); TOTAL PROTEIN,SERUM 5.5 gm/dL (6.0-8.3)
[2018-05-26 08:52] LABS: pH 7.38 (7.35-7.45)
[2018-05-26 08:53] LABS: ALLEN TEST Positive
--- NOTE | 2018-05-26 09:36 | General Progress Note ---
Subjective - Review of Systems Service Date: 05/26/18 Subjective: I am OK Objective - Results Result Diagrams: 05/26/18 04:55 05/26/18 04:55 Recent Labs: Laboratory Last Values WBC 7.3 Th/cmm (4.8-10.8) 05/26/18 04:55 RBC 4.35 Mil/cmm (4.30-5.70) 05/26/18 04:55 Hgb 12.4 gm/dL (12-16) 05/26/18 04:55 Hct 37.4 % (41.0-60) L 05/26/18 04:55 MCV 86.0 fl (80-99) 05/26/18 04:55 MCH 28.5 pg (26.0-30.0) 05/26/18 04:55 MCHC Differential 33.2 pg (28.0-36.0) 05/26/18 04:55 RDW 12.8 % (11.5-20.0) 05/26/18 04:55 Plt Count 217 Th/cmm (150-400) 05/26/18 04:55 MPV 8.5 fl 05/26/18 04:55 Neutrophils % 44.0 % (40.0-80.0) 05/26/18 04:55 Lymphocytes % 37.8 % (20.0-50.0) 05/26/18 04:55 Monocytes % 9.5 % (2.0-10.0) 05/26/18 04:55 Eosinophils % 7.6 % (0.0-5.0) H 05/26/18 04:55 Basophils % 1.1 % (0.0-2.0) 05/26/18 04:55 PT 9.9 SECONDS (9.5-11.5) 05/24/18 05:38 INR 0.95 (0.5-1.4) 05/24/18 05:38 Specimen Source Arterial 05/26/18 08:39 Sample Site Right Radial 05/26/18 08:39 pH 7.38 (7.35-7.45) 05/26/18 08:39 pCO2 44.0 mmHg (35.0-45.0) 05/26/18 08:39 pO2 68.0 mmHg (80.0-100.0) L 05/26/18 08:39 HCO3 25.3 mEq/L (20.0-26.0) 05/26/18 08:39 Base Excess 0.6 mEq/L (-3.0-3.0) 05/26/18 08:39 O2 Saturation 93.0 % (92.0-100.0) 05/26/18 08:39 Matt Test Positive 05/26/18 08:39 Vent Rate NA 05/26/18 08:39 Inspired O2 32 05/26/18 08:39 Tidal Volume NA 05/26/18 08:39 PEEP NA 05/26/18 08:39 Pressure (ins/psv/peep) NA 05/26/18 08:39 Critical Value LZHANG 05/26/18 08:39 Sodium 139 mEq/L (136-145) 05/26/18 04:55 Potassium 3.5 mEq/L (3.5-5.1) 05/26/18 04:55 Chloride 108 mEq/L (98-107) H 05/26/18 04:55 Carbon Dioxide 26.9 mEq/L (21.0-31.0) 05/26/18 04:55 Anion Gap 7.6 (7.0-16.0) 05/26/18 04:55 BUN 7 mg/dL (7-25) 05/26/18 04:55 Creatinine 1.1 mg/dL (0.7-1.3) 05/26/18 04:55 Est GFR ( Amer) > 60.0 ml/min (>90) 05/26/18 04:55 Est GFR (Non-Af Amer) > 60.0 ml/min 05/26/18 04:55 BUN/Creatinine Ratio 6.4 05/26/18 04:55 Glucose 98 mg/dL (70-105) 05/26/18 04:55 POC Glucose 87 MG/DL (70 - 105) 05/24/18 11:21 Calcium 7.9 mg/dL (8.6-10.3) L 05/26/18 04:55 Total Bilirubin 0.6 mg/dL (0.3-1.0) 05/26/18 04:55 AST 20 U/L (13-39) 05/26/18 04:55 ALT 11 U/L (7-52) 05/26/18 04:55 Alkaline Phosphatase 51 U/L (34-104) 05/26/18 04:55 Creatine Kinase 148 U/L (30-223) 05/23/18 16:56 Troponin I < 0.01 ng/mL (0.01-0.05) L 05/23/18 16:56 B-Natriuretic Peptide < 5.0 pg/mL (5.0-100.0) L 05/23/18 16:56 Total Protein 5.5 gm/dL (6.0-8.3) L 05/26/18 04:55 Albumin 3.1 gm/dL (4.2-5.5) L 05/26/18 04:55 Globulin 2.4 gm/dL 05/26/18 04:55 Albumin/Globulin Ratio 1.3 (1.0-1.8) 05/26/18 04:55 Triglycerides 114 mg/dL (<150) 05/23/18 16:56 Cholesterol 216 mg/dL (<200) H 05/23/18 16:56 LDL Cholesterol Direct 144 mg/dL (75-193) 05/23/18 16:56 HDL Cholesterol 49 mg/dL (23-92) 05/23/18 16:56 Blood Type O POSITIVE 05/23/18 20:50 Antibody Screen NEGATIVE 05/23/18 20:50 - Physical Exam Vitals and I&O: Vital Signs Temp 97.9 F 05/26/18 07:00 Pulse 66 05/26/18 08:00 Resp 13 05/26/18 08:00 BP 140/100 05/26/18 08:00 Pulse Ox 96 05/26/18 08:00 Intake & Output 05/25/18 05/26/18 05/26/18 18:59 06:59 18:59 Intake Total 1871.25 2078.75 Output Total 1600 625 Balance 271.25 1453.75 Weight (lbs) 90.306 kg 90.265 kg Intake: Intake, IV Amount 771.25 1178.75 Levofloxacin 750mg/150mL 150 750 mg In 150 ml @ 100 mls/hr IV Q24HR [facility] Rx#: [id number] Sodium Chloride 0.9% 1, 621.25 1178.75 000 ml @ 75 mls/hr IV . [id number] [facility] Rx#:[id number] Oral 1100 900 Output: Chest Tube Drainage 200 75 Right Lateral Chest 200 75 Urine 1400 550 Other: # Bowel Movements 0 Weight Source Bedscale Bedscale Active Medications: Current Medications Acetaminophen (Tylenol) 650 mg PO Q6H PRN PRN Reason: Mild Pain or Fever >101 Stop: 07/22/18 18:19 Hydromorphone HCl (Dilaudid) 2 mg IVP Q4HR PRN PRN Reason: chest pain Stop: 07/24/18 13:54 Last Admin: 05/26/18 09:20 Dose: 2 mg Sodium Chloride (Nacl 0.9%) 1,000 mls @ 75 mls/hr IV .[id number] [facility] Stop: 07/22/18 18:29 Last Infusion: 05/26/18 06:00 Dose: 75 mls/hr Levofloxacin (Levaquin Pb) 750 mg in 150 mls @ 100 mls/hr IV Q24HR [facility] Stop: 07/23/18 14:59 Last Infusion: 05/25/18 15:46 Dose: Infused Ketorolac Tromethamine (Toradol) 30 mg IV Q6H PRN PRN Reason: Moderate Pain Stop: 05/29/18 14:30 Ondansetron HCl (Zofran) 4 mg IV Q4H PRN PRN Reason: Nausea / Vomiting Stop: 07/24/18 09:43 Last Admin: 05/25/18 10:22 Dose: 4 mg Trazodone HCl (Desyrel) 50 mg PO HS [facility]; Protocol Stop: 07/22/18 21:59 Last Admin: 05/25/18 20:46 Dose: 50 mg General: Alert, No acute distress HEENT: Atraumatic Neck: Supple Cardiovascular: Regular rate Lungs: Other (Diminished air entry in right hemithorax, Chest tube present. ) Abdomen: Bowel sounds, Soft Extremities: Other (No edema) Neurological: Normal gait Skin: Other (Warm and dry) - Procedures Procedures: Procedures Procedure Code Date DRAINAGE OF R PLEURAL CAV WITH DRAIN DEV, OPEN APPROACH [id number] 05/23/18 DRAINAGE OF R PLEURAL CAV WITH DRAIN DEV, PERC APPROACH [id number] 05/08/18 RESECTION OF RIGHT MIDDLE LOBE BRONCHUS, [facility] ENDO APPROACH [id number] 05/23/18 RESECTION OF RIGHT UPPER LUNG LOBE, PERC ENDO APPROACH [id number] 06/27/18 Assessment/Plan - Assessment Assessment: Patient is awake, alert, calm in no acuter distress. CXR shows no more Pneumothorax. Dx: Pneumothorax, Lung bulla. S/P bullectomy - Plan Plan: Patient is continue with home Meds, IV NS, Surgery was done. Patient is improving breathing well no O2 needed. Will continue to monitor.
--- NOTE | 2018-05-26 09:38 | Diagnostic Imaging Report ---
Exam: Portable chest x-ray HISTORY: Shortness of breath. COMPARISON: 05/25/2018 Findings: Portable upright examination of the chest at 0805 hours reviewed compared to prior study the early demonstrates unchanged appearance of right chest tube, there is no evidence for pneumothorax. There is evidence for decrease in the right basilar infiltrate. The costophrenic angles are clear, bony thorax is intact. IMPRESSION: Decrease in the right lower lobe infiltrate. No evidence of pneumothorax.
--- NOTE | 2018-05-26 10:28 | General Progress Note ---
Subjective - Review of Systems Service Date: 05/26/18 Events since last encounter: xray no pneumo no air leak Objective - Results Result Diagrams: 05/26/18 04:55 05/26/18 04:55 Recent Labs: Laboratory Last Values WBC 7.3 Th/cmm (4.8-10.8) 05/26/18 04:55 RBC 4.35 Mil/cmm (4.30-5.70) 05/26/18 04:55 Hgb 12.4 gm/dL (12-16) 05/26/18 04:55 Hct 37.4 % (41.0-60) L 05/26/18 04:55 MCV 86.0 fl (80-99) 05/26/18 04:55 MCH 28.5 pg (26.0-30.0) 05/26/18 04:55 MCHC Differential 33.2 pg (28.0-36.0) 05/26/18 04:55 RDW 12.8 % (11.5-20.0) 05/26/18 04:55 Plt Count 217 Th/cmm (150-400) 05/26/18 04:55 MPV 8.5 fl 05/26/18 04:55 Neutrophils % 44.0 % (40.0-80.0) 05/26/18 04:55 Lymphocytes % 37.8 % (20.0-50.0) 05/26/18 04:55 Monocytes % 9.5 % (2.0-10.0) 05/26/18 04:55 Eosinophils % 7.6 % (0.0-5.0) H 05/26/18 04:55 Basophils % 1.1 % (0.0-2.0) 05/26/18 04:55 PT 9.9 SECONDS (9.5-11.5) 05/24/18 05:38 INR 0.95 (0.5-1.4) 05/24/18 05:38 Specimen Source Arterial 05/26/18 08:39 Sample Site Right Radial 05/26/18 08:39 pH 7.38 (7.35-7.45) 05/26/18 08:39 pCO2 44.0 mmHg (35.0-45.0) 05/26/18 08:39 pO2 68.0 mmHg (80.0-100.0) L 05/26/18 08:39 HCO3 25.3 mEq/L (20.0-26.0) 05/26/18 08:39 Base Excess 0.6 mEq/L (-3.0-3.0) 05/26/18 08:39 O2 Saturation 93.0 % (92.0-100.0) 05/26/18 08:39 Matt Test Positive 05/26/18 08:39 Vent Rate NA 05/26/18 08:39 Inspired O2 32 05/26/18 08:39 Tidal Volume NA 05/26/18 08:39 PEEP NA 05/26/18 08:39 Pressure (ins/psv/peep) NA 05/26/18 08:39 Critical Value LZHANG 05/26/18 08:39 Sodium 139 mEq/L (136-145) 05/26/18 04:55 Potassium 3.5 mEq/L (3.5-5.1) 05/26/18 04:55 Chloride 108 mEq/L (98-107) H 05/26/18 04:55 Carbon Dioxide 26.9 mEq/L (21.0-31.0) 05/26/18 04:55 Anion Gap 7.6 (7.0-16.0) 05/26/18 04:55 BUN 7 mg/dL (7-25) 05/26/18 04:55 Creatinine 1.1 mg/dL (0.7-1.3) 05/26/18 04:55 Est GFR ( Amer) > 60.0 ml/min (>90) 05/26/18 04:55 Est GFR (Non-Af Amer) > 60.0 ml/min 05/26/18 04:55 BUN/Creatinine Ratio 6.4 05/26/18 04:55 Glucose 98 mg/dL (70-105) 05/26/18 04:55 POC Glucose 87 MG/DL (70 - 105) 05/24/18 11:21 Calcium 7.9 mg/dL (8.6-10.3) L 05/26/18 04:55 Total Bilirubin 0.6 mg/dL (0.3-1.0) 05/26/18 04:55 AST 20 U/L (13-39) 05/26/18 04:55 ALT 11 U/L (7-52) 05/26/18 04:55 Alkaline Phosphatase 51 U/L (34-104) 05/26/18 04:55 Creatine Kinase 148 U/L (30-223) 05/23/18 16:56 Troponin I < 0.01 ng/mL (0.01-0.05) L 05/23/18 16:56 B-Natriuretic Peptide < 5.0 pg/mL (5.0-100.0) L 05/23/18 16:56 Total Protein 5.5 gm/dL (6.0-8.3) L 05/26/18 04:55 Albumin 3.1 gm/dL (4.2-5.5) L 05/26/18 04:55 Globulin 2.4 gm/dL 05/26/18 04:55 Albumin/Globulin Ratio 1.3 (1.0-1.8) 05/26/18 04:55 Triglycerides 114 mg/dL (<150) 05/23/18 16:56 Cholesterol 216 mg/dL (<200) H 05/23/18 16:56 LDL Cholesterol Direct 144 mg/dL (75-193) 05/23/18 16:56 HDL Cholesterol 49 mg/dL (23-92) 05/23/18 16:56 Blood Type O POSITIVE 05/23/18 20:50 Antibody Screen NEGATIVE 05/23/18 20:50 - Physical Exam Vitals and I&O: Vital Signs Temp 97.9 F 05/26/18 09:00 Pulse 71 05/26/18 09:00 Resp 19 05/26/18 09:00 BP 128/87 05/26/18 09:00 Pulse Ox 96 05/26/18 09:00 Intake & Output 05/25/18 05/26/18 05/26/18 18:59 06:59 18:59 Intake Total 1871.25 2078.75 Output Total 1600 625 Balance 271.25 1453.75 Weight (lbs) 90.306 kg 90.265 kg Intake: Intake, IV Amount 771.25 1178.75 Levofloxacin 750mg/150mL 150 750 mg In 150 ml @ 100 mls/hr IV Q24HR [facility] Rx#: [id number] Sodium Chloride 0.9% 1, 621.25 1178.75 000 ml @ 75 mls/hr IV . [id number] [facility] Rx#:[id number] Oral 1100 900 Output: Chest Tube Drainage 200 75 Right Lateral Chest 200 75 Urine 1400 550 Other: # Bowel Movements 0 Weight Source Bedscale Bedscale Active Medications: Current Medications Acetaminophen (Tylenol) 650 mg PO Q6H PRN PRN Reason: Mild Pain or Fever >101 Stop: 07/22/18 18:19 Hydromorphone HCl (Dilaudid) 2 mg IVP Q4HR PRN PRN Reason: chest pain Stop: 07/24/18 13:54 Last Admin: 05/26/18 09:20 Dose: 2 mg Sodium Chloride (Nacl 0.9%) 1,000 mls @ 75 mls/hr IV .[id number] [facility] Stop: 07/22/18 18:29 Last Infusion: 05/26/18 06:00 Dose: 75 mls/hr Levofloxacin (Levaquin Pb) 750 mg in 150 mls @ 100 mls/hr IV Q24HR [facility] Stop: 07/23/18 14:59 Last Infusion: 05/25/18 15:46 Dose: Infused Ketorolac Tromethamine (Toradol) 30 mg IV Q6H PRN PRN Reason: Moderate Pain Stop: 05/29/18 14:30 Ondansetron HCl (Zofran) 4 mg IV Q4H PRN PRN Reason: Nausea / Vomiting Stop: 07/24/18 09:43 Last Admin: 05/25/18 10:22 Dose: 4 mg Trazodone HCl (Desyrel) 50 mg PO HS [facility]; Protocol Stop: 07/22/18 21:59 Last Admin: 05/25/18 20:46 Dose: 50 mg General: Alert, No acute distress HEENT: Atraumatic Neck: Supple Cardiovascular: Regular rate Lungs: Other (Diminished air entry in right hemithorax, Chest tube present. ) Abdomen: Bowel sounds, Soft Extremities: Other (No edema) Neurological: Normal gait Skin: Other (Warm and dry) - Procedures Procedures: Procedures Procedure Code Date DRAINAGE OF R PLEURAL CAV WITH DRAIN DEV, OPEN APPROACH [id number] 05/23/18 DRAINAGE OF R PLEURAL CAV WITH DRAIN DEV, [facility] APPROACH [id number] 05/08/18 RESECTION OF RIGHT MIDDLE LOBE BRONCHUS, [facility] APPROACH [id number] 05/23/18 RESECTION OF RIGHT UPPER LUNG LOBE, [facility] APPROACH [id number] 05/23/18
[2018-05-26] MEDS: Levofloxacin 750mg/150mL 750 MG/150 ML BAG IV SCH (15:10)
--- NOTE | 2018-05-26 23:48 | Progress Notes ---
DATE: 05/26/2018 PULMONARY PROGRESS NOTE PROBLEM LIST: 1. Recurrent pneumothorax, right side. 2. Status post bullectomy with chemical pleurodesis. SYMPTOMS: Nil, feeling okay. No respiratory symptoms or breathing difficulty. PHYSICAL EXAMINATION: VITAL SIGNS: T-max 97.2, saturation is 97% nasal cannula, BP is within normal limits. CHEST: Shows diminished air entry. No other adventitious breath sounds. HEART: Regular. ABDOMEN: Soft, nontender. LABORATORY DATA: The patient's white count is 7.3, pO2 of 68 on 2 liters per minute. Electrolytes are okay. I do not see any leak through the chest tube. PLANS AND SUGGESTIONS: Okay to remove the chest tube. Okay to move to step-down unit. Care and plan discussed with the nursing staff. JOB# [id number]
[2018-05-27] MEDS: Sodium Chloride 0.9% 1,000 ML IV SCH (03:47)
[2018-05-27 05:34] LABS: HEMATOCRIT 37.1 % (41.0-60); HEMOGLOBIN 12.4 gm/dL (12-16); MEAN CELL VOLUME 85.3 fl (80-99); MEAN CORPUSCULAR HEMOGLOBIN 28.6 pg (26.0-30.0); MEAN CORPUSCULAR HGB CONC 33.5 pg (28.0-36.0); MEAN PLATELET VOLUME 8.2 fl; PLATELET COUNT 246 Th/cmm (150-400); RED BLOOD COUNT 4.35 Mil/cmm (4.30-5.70); RED CELL DISTRIBUTION WIDTH 12.4 % (11.5-20.0); WHITE BLOOD COUNT 6.1 Th/cmm (4.8-10.8)
[2018-05-27 05:43] LABS: ALB/GLOB RATIO 1.3 (1.0-1.8); ALBUMIN 3.3 gm/dL (4.2-5.5); ALKALINE PHOSPHATASE 64 U/L (34-104); ANION GAP 7.7 (7.0-16.0); BILIRUBIN,TOTAL 0.4 mg/dL (0.3-1.0); BUN - UREA NITROGEN 7 mg/dL (7-25); CALCIUM SERUM 8.5 mg/dL (8.6-10.3); CHLORIDE 106 mEq/L (98-107); CREATININE - SERUM 1.1 mg/dL (0.7-1.3); GFR AFRICAN-AMERICAN > 60.0 ml/min (>90); GFR NON AFRICAN-AMERICAN > 60.0 ml/min; GLUCOSE 99 mg/dL (70-105); POTASSIUM SERUM 3.7 mEq/L (3.5-5.1); SGOT 20 U/L (13-39); SGPT/ALT 12 U/L (7-52); SODIUM SERUM 139 mEq/L (136-145); TOTAL PROTEIN,SERUM 5.8 gm/dL (6.0-8.3)
[2018-05-27 06:23] LABS: EOSINOPHIL 10 % (0-5); LYMPHOCYTE 44 % (20-50); MONOCYTE 6 % (2-10); NEUTROPHILS 40 % (40-80); TOTAL CELLS COUNTED 100
[2018-05-27] MEDS: HYDROmorphone 2 mg/mL 1mL Vial IVP PRN ×5 (06:29→23:45)
--- NOTE | 2018-05-27 09:11 | Diagnostic Imaging Report ---
Exam: Portable chest x-ray HISTORY: Postoperative changes Findings: Portable upright examination of the chest at 0759 hours reviewed and compared to prior study the early unchanged appearance. Right chest tube in satisfactory position no evidence for pneumothorax. Again noted right basilar atelectasis. IMPRESSION: Unchanged compared to prior examination day earlier.
--- NOTE | 2018-05-27 09:31 | General Progress Note ---
Subjective - Review of Systems Service Date: 05/27/18 Subjective: I am OK Objective - Results Result Diagrams: 05/27/18 05:15 05/27/18 05:15 Recent Labs: Laboratory Last Values WBC 6.1 Th/cmm (4.8-10.8) 05/27/18 05:15 RBC 4.35 Mil/cmm (4.30-5.70) 05/27/18 05:15 Hgb 12.4 gm/dL (12-16) 05/27/18 05:15 Hct 37.1 % (41.0-60) L 05/27/18 05:15 MCV 85.3 fl (80-99) 05/27/18 05:15 MCH 28.6 pg (26.0-30.0) 05/27/18 05:15 MCHC Differential 33.5 pg (28.0-36.0) 05/27/18 05:15 RDW 12.4 % (11.5-20.0) 05/27/18 05:15 Plt Count 246 Th/cmm (150-400) 05/27/18 05:15 MPV 8.2 fl 05/27/18 05:15 Neutrophils % 44.0 % (40.0-80.0) 05/26/18 04:55 Lymphocytes % 37.8 % (20.0-50.0) 05/26/18 04:55 Monocytes % 9.5 % (2.0-10.0) 05/26/18 04:55 Eosinophils % 7.6 % (0.0-5.0) H 05/26/18 04:55 Basophils % 1.1 % (0.0-2.0) 05/26/18 04:55 Neutrophils (Manual) 40 % (40-80) 05/27/18 05:15 Lymphocytes 44 % (20-50) 05/27/18 05:15 Monocytes 6 % (2-10) 05/27/18 05:15 Eosinophils 10 % (0-5) H 05/27/18 05:15 PT 9.9 SECONDS (9.5-11.5) 05/24/18 05:38 INR 0.95 (0.5-1.4) 05/24/18 05:38 Specimen Source Arterial 05/26/18 08:39 Sample Site Right Radial 05/26/18 08:39 pH 7.38 (7.35-7.45) 05/26/18 08:39 pCO2 44.0 mmHg (35.0-45.0) 05/26/18 08:39 pO2 68.0 mmHg (80.0-100.0) L 05/26/18 08:39 HCO3 25.3 mEq/L (20.0-26.0) 05/26/18 08:39 Base Excess 0.6 mEq/L (-3.0-3.0) 05/26/18 08:39 O2 Saturation 93.0 % (92.0-100.0) 05/26/18 08:39 Matt Test Positive 05/26/18 08:39 Vent Rate NA 05/26/18 08:39 Inspired O2 32 05/26/18 08:39 Tidal Volume NA 05/26/18 08:39 PEEP NA 05/26/18 08:39 Pressure (ins/psv/peep) NA 05/26/18 08:39 Critical Value LZHANG 05/26/18 08:39 Sodium 139 mEq/L (136-145) 05/27/18 05:15 Potassium 3.7 mEq/L (3.5-5.1) 05/27/18 05:15 Chloride 106 mEq/L (98-107) 05/27/18 05:15 Carbon Dioxide 29.0 mEq/L (21.0-31.0) 05/27/18 05:15 Anion Gap 7.7 (7.0-16.0) 05/27/18 05:15 BUN 7 mg/dL (7-25) 05/27/18 05:15 Creatinine 1.1 mg/dL (0.7-1.3) 05/27/18 05:15 Est GFR ( Amer) > 60.0 ml/min (>90) 05/27/18 05:15 Est GFR (Non-Af Amer) > 60.0 ml/min 05/27/18 05:15 BUN/Creatinine Ratio 6.4 05/27/18 05:15 Glucose 99 mg/dL (70-105) 05/27/18 05:15 POC Glucose 87 MG/DL (70 - 105) 05/24/18 11:21 Calcium 8.5 mg/dL (8.6-10.3) L 05/27/18 05:15 Total Bilirubin 0.4 mg/dL (0.3-1.0) 05/27/18 05:15 AST 20 U/L (13-39) 05/27/18 05:15 ALT 12 U/L (7-52) 05/27/18 05:15 Alkaline Phosphatase 64 U/L (34-104) 05/27/18 05:15 Creatine Kinase 148 U/L (30-223) 05/23/18 16:56 Troponin I < 0.01 ng/mL (0.01-0.05) L 05/23/18 16:56 B-Natriuretic Peptide < 5.0 pg/mL (5.0-100.0) L 05/23/18 16:56 Total Protein 5.8 gm/dL (6.0-8.3) L 05/27/18 05:15 Albumin 3.3 gm/dL (4.2-5.5) L 05/27/18 05:15 Globulin 2.5 gm/dL 05/27/18 05:15 Albumin/Globulin Ratio 1.3 (1.0-1.8) 05/27/18 05:15 Triglycerides 114 mg/dL (<150) 05/23/18 16:56 Cholesterol 216 mg/dL (<200) H 05/23/18 16:56 LDL Cholesterol Direct 144 mg/dL (75-193) 05/23/18 16:56 HDL Cholesterol 49 mg/dL (23-92) 05/23/18 16:56 Blood Type O POSITIVE 05/23/18 20:50 Antibody Screen NEGATIVE 05/23/18 20:50 - Physical Exam Vitals and I&O: Vital Signs Temp 96.2 F 05/27/18 09:00 Pulse 69 05/27/18 09:00 Resp 14 05/27/18 09:00 BP 130/88 05/27/18 09:00 Pulse Ox 95 05/27/18 09:00 Intake & Output 05/26/18 05/27/18 05/27/18 18:59 06:59 18:59 Intake Total 2312.5 1000 Output Total 1340 950 Balance 972.5 50 Weight (lbs) 90.86 kg 92.533 kg Intake: Intake, IV Amount 712.5 1000 Levofloxacin 750mg/150mL 150 750 mg In 150 ml @ 100 mls/hr IV Q24HR [facility] Rx#: [id number] Sodium Chloride 0.9% 1, 562.5 1000 000 ml @ 75 mls/hr IV . [id number] [facility] Rx#:[id number] Oral 1600 Output: Chest Tube Drainage 140 50 Right Lateral Chest 140 50 Urine 1200 900 Stool 0 Other: # Bowel Movements 0 Weight Source Bedscale Bedscale Active Medications: Current Medications Acetaminophen (Tylenol) 650 mg PO Q6H PRN PRN Reason: Mild Pain or Fever >101 Stop: 07/22/18 18:19 Hydromorphone HCl (Dilaudid) 2 mg IVP Q4HR PRN PRN Reason: chest pain Stop: 07/24/18 13:54 Last Admin: 05/27/18 06:29 Dose: 2 mg Sodium Chloride (Nacl 0.9%) 1,000 mls @ 75 mls/hr IV .[id number] [facility] Stop: 07/22/18 18:29 Last Admin: 05/27/18 03:47 Dose: 75 mls/hr Levofloxacin (Levaquin Pb) 750 mg in 150 mls @ 100 mls/hr IV Q24HR [facility] Stop: 07/23/18 14:59 Last Infusion: 05/26/18 16:40 Dose: Infused Ketorolac Tromethamine (Toradol) 30 mg IV Q6H PRN PRN Reason: Moderate Pain Stop: 05/29/18 14:30 Ondansetron HCl (Zofran) 4 mg IV Q4H PRN PRN Reason: Nausea / Vomiting Stop: 07/24/18 09:43 Last Admin: 05/25/18 10:22 Dose: 4 mg Trazodone HCl (Desyrel) 50 mg PO [facility]; Protocol Stop: 07/22/18 21:59 Last Admin: 05/26/18 22:11 Dose: 50 mg General: Alert, No acute distress HEENT: Atraumatic Neck: Supple Cardiovascular: Regular rate Lungs: Other (Diminished air entry in right hemithorax, Chest tube present. ) Abdomen: Bowel sounds, Soft Extremities: Other (No edema) Neurological: Normal gait Skin: Other (Warm and dry) - Procedures Procedures: Procedures Procedure Code Date DRAINAGE OF R PLEURAL CAV WITH DRAIN DEV, OPEN APPROACH [id number] 05/23/18 DRAINAGE OF R PLEURAL CAV WITH DRAIN DEV, [facility] APPROACH [id number] 05/08/18 RESECTION OF RIGHT MIDDLE LOBE BRONCHUS, [facility] ENDO APPROACH [id number] 05/23/18 RESECTION OF RIGHT UPPER LUNG LOBE, [facility] ENDO APPROACH [id number] 05/23/18 Assessment/Plan - Assessment Assessment: Patient is awake, alert, calm in no acuter distress. Yesterday CXR shows no more Pneumothorax. Dx: Pneumothorax, Lung bulla. S/P bullectomy - Plan Plan: Patient is continue with home Meds, IV NS, Surgery was done. Patient is improving breathing well no O2 needed. Will continue to monitor.
--- NOTE | 2018-05-27 09:35 | General Progress Note ---
Subjective - Review of Systems Service Date: 05/27/18 Events since last encounter: no pneumo DC suction Objective - Results Result Diagrams: 05/27/18 05:15 05/27/18 05:15 Recent Labs: Laboratory Last Values WBC 6.1 Th/cmm (4.8-10.8) 05/27/18 05:15 RBC 4.35 Mil/cmm (4.30-5.70) 05/27/18 05:15 Hgb 12.4 gm/dL (12-16) 05/27/18 05:15 Hct 37.1 % (41.0-60) L 05/27/18 05:15 MCV 85.3 fl (80-99) 05/27/18 05:15 MCH 28.6 pg (26.0-30.0) 05/27/18 05:15 MCHC Differential 33.5 pg (28.0-36.0) 05/27/18 05:15 RDW 12.4 % (11.5-20.0) 05/27/18 05:15 Plt Count 246 Th/cmm (150-400) 05/27/18 05:15 MPV 8.2 fl 05/27/18 05:15 Neutrophils % 44.0 % (40.0-80.0) 05/26/18 04:55 Lymphocytes % 37.8 % (20.0-50.0) 05/26/18 04:55 Monocytes % 9.5 % (2.0-10.0) 05/26/18 04:55 Eosinophils % 7.6 % (0.0-5.0) H 05/26/18 04:55 Basophils % 1.1 % (0.0-2.0) 05/26/18 04:55 Neutrophils (Manual) 40 % (40-80) 05/27/18 05:15 Lymphocytes 44 % (20-50) 05/27/18 05:15 Monocytes 6 % (2-10) 05/27/18 05:15 Eosinophils 10 % (0-5) H 05/27/18 05:15 PT 9.9 SECONDS (9.5-11.5) 05/24/18 05:38 INR 0.95 (0.5-1.4) 05/24/18 05:38 Specimen Source Arterial 05/26/18 08:39 Sample Site Right Radial 05/26/18 08:39 pH 7.38 (7.35-7.45) 05/26/18 08:39 pCO2 44.0 mmHg (35.0-45.0) 05/26/18 08:39 pO2 68.0 mmHg (80.0-100.0) L 05/26/18 08:39 HCO3 25.3 mEq/L (20.0-26.0) 05/26/18 08:39 Base Excess 0.6 mEq/L (-3.0-3.0) 05/26/18 08:39 O2 Saturation 93.0 % (92.0-100.0) 05/26/18 08:39 Matt Test Positive 05/26/18 08:39 Vent Rate NA 05/26/18 08:39 Inspired O2 32 05/26/18 08:39 Tidal Volume NA 05/26/18 08:39 PEEP NA 05/26/18 08:39 Pressure (ins/psv/peep) NA 05/26/18 08:39 Critical Value LZHANG 05/26/18 08:39 Sodium 139 mEq/L (136-145) 05/27/18 05:15 Potassium 3.7 mEq/L (3.5-5.1) 05/27/18 05:15 Chloride 106 mEq/L (98-107) 05/27/18 05:15 Carbon Dioxide 29.0 mEq/L (21.0-31.0) 05/27/18 05:15 Anion Gap 7.7 (7.0-16.0) 05/27/18 05:15 BUN 7 mg/dL (7-25) 05/27/18 05:15 Creatinine 1.1 mg/dL (0.7-1.3) 05/27/18 05:15 Est GFR ( Amer) > 60.0 ml/min (>90) 05/27/18 05:15 Est GFR (Non-Af Amer) > 60.0 ml/min 05/27/18 05:15 BUN/Creatinine Ratio 6.4 05/27/18 05:15 Glucose 99 mg/dL (70-105) 05/27/18 05:15 POC Glucose 87 MG/DL (70 - 105) 05/24/18 11:21 Calcium 8.5 mg/dL (8.6-10.3) L 05/27/18 05:15 Total Bilirubin 0.4 mg/dL (0.3-1.0) 05/27/18 05:15 AST 20 U/L (13-39) 05/27/18 05:15 ALT 12 U/L (7-52) 05/27/18 05:15 Alkaline Phosphatase 64 U/L (34-104) 05/27/18 05:15 Creatine Kinase 148 U/L (30-223) 05/23/18 16:56 Troponin I < 0.01 ng/mL (0.01-0.05) L 05/23/18 16:56 B-Natriuretic Peptide < 5.0 pg/mL (5.0-100.0) L 05/23/18 16:56 Total Protein 5.8 gm/dL (6.0-8.3) L 05/27/18 05:15 Albumin 3.3 gm/dL (4.2-5.5) L 05/27/18 05:15 Globulin 2.5 gm/dL 05/27/18 05:15 Albumin/Globulin Ratio 1.3 (1.0-1.8) 05/27/18 05:15 Triglycerides 114 mg/dL (<150) 05/23/18 16:56 Cholesterol 216 mg/dL (<200) H 05/23/18 16:56 LDL Cholesterol Direct 144 mg/dL (75-193) 05/23/18 16:56 HDL Cholesterol 49 mg/dL (23-92) 05/23/18 16:56 Blood Type O POSITIVE 05/23/18 20:50 Antibody Screen NEGATIVE 05/23/18 20:50 - Physical Exam Vitals and I&O: Vital Signs Temp 96.2 F 05/27/18 09:00 Pulse 69 05/27/18 09:00 Resp 14 05/27/18 09:00 BP 130/88 05/27/18 09:00 Pulse Ox 95 05/27/18 09:00 Intake & Output 05/26/18 05/27/18 05/27/18 18:59 06:59 18:59 Intake Total 2312.5 1000 Output Total 1340 950 Balance 972.5 50 Weight (lbs) 90.86 kg 92.533 kg Intake: Intake, IV Amount 712.5 1000 Levofloxacin 750mg/150mL 150 750 mg In 150 ml @ 100 mls/hr IV Q24HR [facility] Rx#: [id number] Sodium Chloride 0.9% 1, 562.5 1000 000 ml @ 75 mls/hr IV . [id number] [facility] Rx#:[id number] Oral 1600 Output: Chest Tube Drainage 140 50 Right Lateral Chest 140 50 Urine 1200 900 Stool 0 Other: # Bowel Movements 0 Weight Source Bedscale Bedscale Active Medications: Current Medications Acetaminophen (Tylenol) 650 mg PO Q6H PRN PRN Reason: Mild Pain or Fever >101 Stop: 07/22/18 18:19 Hydromorphone HCl (Dilaudid) 2 mg IVP Q4HR PRN PRN Reason: chest pain Stop: 07/24/18 13:54 Last Admin: 05/27/18 06:29 Dose: 2 mg Sodium Chloride (Nacl 0.9%) 1,000 mls @ 75 mls/hr IV .[id number] [facility] Stop: 07/22/18 18:29 Last Admin: 05/27/18 03:47 Dose: 75 mls/hr Levofloxacin (Levaquin Pb) 750 mg in 150 mls @ 100 mls/hr IV Q24HR [facility] Stop: 07/23/18 14:59 Last Infusion: 05/26/18 16:40 Dose: Infused Ketorolac Tromethamine (Toradol) 30 mg IV Q6H PRN PRN Reason: Moderate Pain Stop: 05/29/18 14:30 Ondansetron HCl (Zofran) 4 mg IV Q4H PRN PRN Reason: Nausea / Vomiting Stop: 07/24/18 09:43 Last Admin: 05/25/18 10:22 Dose: 4 mg Trazodone HCl (Desyrel) 50 mg PO [facility]; Protocol Stop: 07/22/18 21:59 Last Admin: 05/26/18 22:11 Dose: 50 mg General: Alert, No acute distress HEENT: Atraumatic Neck: Supple Cardiovascular: Regular rate Lungs: Other (Diminished air entry in right hemithorax, Chest tube present. ) Abdomen: Bowel sounds, Soft Extremities: Other (No edema) Neurological: Normal gait Skin: Other (Warm and dry) - Procedures Procedures: Procedures Procedure Code Date DRAINAGE OF R PLEURAL CAV WITH DRAIN DEV, OPEN APPROACH [id number] 05/23/18 DRAINAGE OF R PLEURAL CAV WITH DRAIN DEV, [facility] APPROACH 2H2478H 05/08/18 RESECTION OF RIGHT MIDDLE LOBE BRONCHUS, [facility] ENDO APPROACH [id number] 05/23/18 RESECTION OF RIGHT UPPER LUNG LOBE, [facility] END[facility] APPROACH [id number] 05/23/18
[2018-05-27] MEDS: Levofloxacin 750mg/150mL 750 MG/150 ML BAG IV SCH (14:51)
--- NOTE | 2018-05-28 00:40 | Progress Notes ---
DATE: 05/27/2018 PULMONARY PROGRESS NOTE PROBLEM LIST: 1. Recurrent pneumothorax, right side from bolus resected. 2. History of pulmonary nodule, left side. 3. History of tobacco dependency. 4. History of previous chest tube, a couple of days prior to this admission. SYMPTOMS: Nil, feeling okay, offers no specific new symptom, was moved to the step-down unit. PHYSICAL EXAMINATION: VITAL SIGNS: T-max 97.9, blood pressure 153/80, saturation 96 on room air. NECK: Veins not visualized. CHEST: Shows clear with diminished air entry on the right side. HEART: Regular. ABDOMEN: Soft, nontender. LABORATORY STUDIES: White count is 6.1, hemoglobin 12.4, pO2 is 68 on 32% of oxygen. Electrolytes are okay with albumin 3.3. ASSESSMENT: The patient clinically remarkably improving. PLANS AND SUGGESTIONS: We will continue current treatment. Hopefully, when the drainage is less, remove the chest tube and go from there. JOB# [id number]
--- NOTE | 2018-05-28 01:06 | Consultation ---
DATE OF CONSULTATION: 05/24/2018 PULMONARY CONSULTATION NOTE REASON FOR CONSULTATION: Shortness of breath with pneumothorax. CONSULT NOTE: This is a 52-year-old gentleman with past history of very heavy smoker and the patient basically initially was admitted with shortness of breath and chest pressure. The patient had a pneumothorax couple of weeks ago and subsequently the patient's symptoms were resolved with chest tube, but subsequently symptomatology come back. The patient came to the Emergency Room and the patient has a near total pneumothorax. Subsequently, the patient was admitted and I was asked to see this patient for further necessary treatment and denied of any coughing, denied of any wheezing, denied of any classical pleuritic chest pain, and denied of any other related symptomatology. PAST MEDICAL HISTORY: History of hypertension, history of previous pneumothorax, history of left lung biopsy. SURGICAL HISTORY: Nil. SMOKING HISTORY: More than 40-50 pack year smoker, recently couple of weeks or couple of months ____. ALLERGIC HISTORY: Nil. DRUGS: Nil. CURRENT MEDICATION: Hydrochlorothiazide, ____. PHYSICAL FINDINGS: GENERAL: This is a middle-aged gentleman, awake, alert, oriented, not in any acute distress. VITAL SIGNS: The patient's recorded vitals BP 110/70, heart rate is 80, respirations about 25-26. The patient is afebrile. HEENT: Examination of the head is essentially unremarkable. Pupils appear to be equal and reacting to light. Oral cavity shows small oropharyngeal opening, otherwise unremarkable. NECK: No nodes in the neck could be palpated. CHEST: Shows marked diminished air entry in the right base, otherwise unremarkable. HEART: Regular. ABDOMEN: Soft, nontender. LABORATORY DATA: White count is 5.9, hemoglobin 15.3, potassium is 3.1 and the patient's chest x-ray shows a large pneumothorax on the right side. ASSESSMENT: The patient has recurrent pneumothorax. PLANS AND SUGGESTIONS: I agree with Dr. Choi's involvement. Might require resection of lesion plus possibly chemical pleurodesis and I will be glad to follow along with you. JOB# [id number]
[2018-05-28 05:09] LABS: % BASOPHILS 1.7 % (0.0-2.0); % EOSINOPHILS 7.1 % (0.0-5.0); % LYMPHOCYTES 48.8 % (20.0-50.0); % MONOCYTES 9.7 % (2.0-10.0); % NEUTROPHILS 32.7 % (40.0-80.0); BASOPHILE ABSOLUTE 0.1 Th/cumm (0-0.2); EOSINOPHILE ABSOLUTE 0.4 Th/cmm (0.1-0.4); HEMATOCRIT 32.4 % (41.0-60); LYMPHOCYTE ABSOLUTE 2.6 Th/cmm (1.5-3.0); MEAN CELL VOLUME 84.2 fl (80-99); MEAN CORPUSCULAR HEMOGLOBIN 28.6 pg (26.0-30.0); MEAN CORPUSCULAR HGB CONC 33.9 pg (28.0-36.0); MEAN PLATELET VOLUME 8.1 fl; MONOCYTE ABSOLUTE 0.5 Th/cmm (0.3-1.0); NEUTROPHILE ABSOLUTE 1.7 Th/cmm (1.8-8.0); PLATELET COUNT 231 Th/cmm (150-400); RED BLOOD COUNT 3.85 Mil/cmm (4.30-5.70); RED CELL DISTRIBUTION WIDTH 12.4 % (11.5-20.0); WHITE BLOOD COUNT 5.3 Th/cmm (4.8-10.8)
[2018-05-28 05:36] LABS: ALB/GLOB RATIO 1.4 (1.0-1.8); ALKALINE PHOSPHATASE 50 U/L (34-104); ANION GAP 6.9 (7.0-16.0); BILIRUBIN,TOTAL 0.4 mg/dL (0.3-1.0); BUN - UREA NITROGEN 9 mg/dL (7-25); CALCIUM SERUM 8.3 mg/dL (8.6-10.3); CARBON DIOXIDE 28.3 mEq/L (21.0-31.0); CHLORIDE 107 mEq/L (98-107); CREATININE - SERUM 1.1 mg/dL (0.7-1.3); GFR AFRICAN-AMERICAN > 60.0 ml/min (>90); GFR NON AFRICAN-AMERICAN > 60.0 ml/min; GLUCOSE 103 mg/dL (70-105); POTASSIUM SERUM 3.2 mEq/L (3.5-5.1); SGOT 20 U/L (13-39); SGPT/ALT 12 U/L (7-52); SODIUM SERUM 139 mEq/L (136-145); TOTAL PROTEIN,SERUM 5.2 gm/dL (6.0-8.3)
--- NOTE | 2018-05-28 08:10 | General Progress Note ---
Subjective - Review of Systems Service Date: 05/28/18 Events since last encounter: xray no pneumo chest tube out may DC to my office 1 week sponge bath only antibiotics 1 week Objective - Results Result Diagrams: 05/28/18 04:55 05/28/18 04:55 Recent Labs: Laboratory Last Values WBC 5.3 Th/cmm (4.8-10.8) 05/28/18 04:55 RBC 3.85 Mil/cmm (4.30-5.70) L 05/28/18 04:55 Hgb 11.0 gm/dL (12-16) L 05/28/18 04:55 Hct 32.4 % (41.0-60) L 05/28/18 04:55 MCV 84.2 fl (80-99) 05/28/18 04:55 MCH 28.6 pg (26.0-30.0) 05/28/18 04:55 MCHC Differential 33.9 pg (28.0-36.0) 05/28/18 04:55 RDW 12.4 % (11.5-20.0) 05/28/18 04:55 Plt Count 231 Th/cmm (150-400) 05/28/18 04:55 MPV 8.1 fl 05/28/18 04:55 Neutrophils % 32.7 % (40.0-80.0) L 05/28/18 04:55 Lymphocytes % 48.8 % (20.0-50.0) 05/28/18 04:55 Monocytes % 9.7 % (2.0-10.0) 05/28/18 04:55 Eosinophils % 7.1 % (0.0-5.0) H 05/28/18 04:55 Basophils % 1.7 % (0.0-2.0) 05/28/18 04:55 Neutrophils (Manual) 40 % (40-80) 05/27/18 05:15 Lymphocytes 44 % (20-50) 05/27/18 05:15 Monocytes 6 % (2-10) 05/27/18 05:15 Eosinophils 10 % (0-5) H 05/27/18 05:15 PT 9.9 SECONDS (9.5-11.5) 05/24/18 05:38 INR 0.95 (0.5-1.4) 05/24/18 05:38 Specimen Source Arterial 05/26/18 08:39 Sample Site Right Radial 05/26/18 08:39 pH 7.38 (7.35-7.45) 05/26/18 08:39 pCO2 44.0 mmHg (35.0-45.0) 05/26/18 08:39 pO2 68.0 mmHg (80.0-100.0) L 05/26/18 08:39 HCO3 25.3 mEq/L (20.0-26.0) 05/26/18 08:39 Base Excess 0.6 mEq/L (-3.0-3.0) 05/26/18 08:39 O2 Saturation 93.0 % (92.0-100.0) 05/26/18 08:39 Matt Test Positive 05/26/18 08:39 Vent Rate NA 05/26/18 08:39 Inspired O2 32 05/26/18 08:39 Tidal Volume NA 05/26/18 08:39 PEEP NA 05/26/18 08:39 Pressure (ins/psv/peep) NA 05/26/18 08:39 Critical Value LZHANG 05/26/18 08:39 Sodium 139 mEq/L (136-145) 05/28/18 04:55 Potassium 3.2 mEq/L (3.5-5.1) L 05/28/18 04:55 Chloride 107 mEq/L (98-107) 05/28/18 04:55 Carbon Dioxide 28.3 mEq/L (21.0-31.0) 05/28/18 04:55 Anion Gap 6.9 (7.0-16.0) L 05/28/18 04:55 BUN 9 mg/dL (7-25) 05/28/18 04:55 Creatinine 1.1 mg/dL (0.7-1.3) 05/28/18 04:55 Est GFR ( Amer) > 60.0 ml/min (>90) 05/28/18 04:55 Est GFR (Non-Af Amer) > 60.0 ml/min 05/28/18 04:55 BUN/Creatinine Ratio 8.2 05/28/18 04:55 Glucose 103 mg/dL (70-105) 05/28/18 04:55 POC Glucose 87 MG/DL (70 - 105) 05/24/18 11:21 Calcium 8.3 mg/dL (8.6-10.3) L 05/28/18 04:55 Total Bilirubin 0.4 mg/dL (0.3-1.0) 05/28/18 04:55 AST 20 U/L (13-39) 05/28/18 04:55 ALT 12 U/L (7-52) 05/28/18 04:55 Alkaline Phosphatase 50 U/L (34-104) 05/28/18 04:55 Creatine Kinase 148 U/L (30-223) 05/23/18 16:56 Troponin I < 0.01 ng/mL (0.01-0.05) L 05/23/18 16:56 B-Natriuretic Peptide < 5.0 pg/mL (5.0-100.0) L 05/23/18 16:56 Total Protein 5.2 gm/dL (6.0-8.3) L 05/28/18 04:55 Albumin 3.0 gm/dL (4.2-5.5) L 05/28/18 04:55 Globulin 2.2 gm/dL 05/28/18 04:55 Albumin/Globulin Ratio 1.4 (1.0-1.8) 05/28/18 04:55 Triglycerides 114 mg/dL (<150) 05/23/18 16:56 Cholesterol 216 mg/dL (<200) H 05/23/18 16:56 LDL Cholesterol Direct 144 mg/dL (75-193) 05/23/18 16:56 HDL Cholesterol 49 mg/dL (23-92) 05/23/18 16:56 Blood Type O POSITIVE 05/23/18 20:50 Antibody Screen NEGATIVE 05/23/18 20:50 - Physical Exam Vitals and I&O: Vital Signs Temp 97.0 F 05/28/18 04:00 Pulse 65 05/28/18 07:32 Resp 18 05/28/18 08:00 BP 129/58 05/28/18 04:00 Pulse Ox 97 05/28/18 07:32 Intake & Output 05/27/18 05/28/18 05/28/18 18:59 06:59 18:59 Intake Total 750 Output Total 110 Balance 640 Weight (lbs) 92.533 kg 92.533 kg Intake: Intake, IV Amount 150 Levofloxacin 750mg/150mL 150 750 mg In 150 ml @ 100 mls/hr IV Q24HR [facility] Rx#: [id number] Oral 600 Output: Chest Tube Drainage 110 Right Lateral Chest 110 Other: # Voids 3 # Bowel Movements 0 Stool Characteristics Formed Formed Weight Source Bedscale Bedscale Active Medications: Current Medications Acetaminophen (Tylenol) 650 mg PO Q6H PRN PRN Reason: Mild Pain or Fever >101 Stop: 07/22/18 18:19 Diphenhydramine HCl (Benadryl) 50 mg PO TID PRN PRN Reason: Itching Stop: 07/26/18 20:04 Last Admin: 05/27/18 20:33 Dose: 50 mg Hydromorphone HCl (Dilaudid) 2 mg IVP Q4HR PRN PRN Reason: chest pain Stop: 07/24/18 13:54 Last Admin: 05/27/18 23:45 Dose: 2 mg Sodium Chloride (Nacl 0.9%) 1,000 mls @ 75 mls/hr IV .[id number] [facility] Stop: 07/22/18 18:29 Last Admin: 05/27/18 03:47 Dose: 75 mls/hr Levofloxacin (Levaquin Pb) 750 mg in 150 mls @ 100 mls/hr IV Q24HR [facility] Stop: 07/23/18 14:59 Last Infusion: 05/27/18 17:49 Dose: Infused Ketorolac Tromethamine (Toradol) 30 mg IV Q6H PRN PRN Reason: Moderate Pain Stop: 05/29/18 14:30 Ondansetron HCl (Zofran) 4 mg IV Q4H PRN PRN Reason: Nausea / Vomiting Stop: 07/24/18 09:43 Last Admin: 05/25/18 10:22 Dose: 4 mg Trazodone HCl (Desyrel) 50 mg PO HS [facility]; Protocol Stop: 07/22/18 21:59 Last Admin: 05/27/18 20:32 Dose: 50 mg General: Alert, No acute distress HEENT: Atraumatic Neck: Supple Cardiovascular: Regular rate Lungs: Other (Diminished air entry in right hemithorax, Chest tube present. ) Abdomen: Bowel sounds, Soft Extremities: Other (No edema) Neurological: Normal gait Skin: Other (Warm and dry) - Procedures Procedures: Procedures Procedure Code Date DRAINAGE OF R PLEURAL CAV WITH DRAIN DEV, OPEN APPROACH [id number] 05/23/18 DRAINAGE OF R PLEURAL CAV WITH DRAIN DEV, PERC APPROACH [id number] 05/08/18 RESECTION OF RIGHT MIDDLE LOBE BRONCHUS, PERC ENDO APPROACH [id number] 05/23/18 RESECTION OF RIGHT UPPER LUNG LOBE, PERC ENDO APPROACH [id number] 05/23/18
--- NOTE | 2018-05-28 08:28 | Diagnostic Imaging Report ---
CHEST X-RAY: AP view INDICATION: Postop COMPARISON: Chest x-ray 05/27/2018 FINDINGS: Right-sided chest tube is stable. No evidence of pneumothorax. Left midlung nodule is again noted. There is a small right effusion. Right lower lung zone atelectatic changes are noted. IMPRESSION: Stable right chest tube. No evidence of pneumothorax. Small right effusion and right lung atelectatic changes. Stable left midlung nodule as seen on prior exams.
--- NOTE | 2018-05-28 08:39 | Discharge Summary ---
General Discharge Summary - Discharge Summary Date of Admission: 05/23/18 Admitting Diagnosis: Pneumothorax Discharge Date: 05/28/18 Discharge Diagnosis: PneumoThorax, Lung [place] Laboratory Findings: Laboratory Results - last 24 hr 05/28/18 05/28/18 04:55 04:55 WBC 5.3 RBC 3.85 L Hgb 11.0 L Hct 32.4 L MCV 84.2 MCH 28.6 MCHC Differential 33.9 RDW 12.4 Plt Count 231 MPV 8.1 Neutrophils % 32.7 L Lymphocytes % 48.8 Monocytes % 9.7 Eosinophils % 7.1 H Basophils % 1.7 Sodium 139 Potassium 3.2 L Chloride 107 Carbon Dioxide 28.3 Anion Gap 6.9 L BUN 9 Creatinine 1.1 Est GFR ( Amer) > 60.0 Est GFR (Non-Af Amer) > 60.0 BUN/Creatinine Ratio 8.2 Glucose 103 Calcium 8.3 L Total Bilirubin 0.4 AST 20 ALT 12 Alkaline Phosphatase 50 Total Protein 5.2 L Albumin 3.0 L Globulin 2.2 Albumin/Globulin Ratio 1.4 Hospital Course: Patient was admitted to Telemetry and he responded to treatment. Treatment: Chest tube, Lung surgery ( Right upper and midlle Bullectomy and Pleurodesis. pain control Disposition: PT DISCHARGED HOME Home Medications: Home Medication Medication Instructions Recorded Type Hydrochlorothiazide 1 tab PO DAILY 05/23/18 History amLODIPine Besylate [Norvasc*] 1 tab PO DAILY 05/23/18 History Inpatient Medications: Current Medications Acetaminophen (Tylenol) 650 mg PO Q6H PRN PRN Reason: Mild Pain or Fever >101 Stop: 07/22/18 18:19 Diphenhydramine HCl (Benadryl) 50 mg PO TID PRN PRN Reason: Itching Stop: 07/26/18 20:04 Last Admin: 05/27/18 20:33 Dose: 50 mg Hydromorphone HCl (Dilaudid) 2 mg IVP Q4HR PRN PRN Reason: chest pain Stop: 07/24/18 13:54 Last Admin: 05/27/18 23:45 Dose: 2 mg Sodium Chloride (Nacl 0.9%) 1,000 mls @ 75 mls/hr IV .[id number] [facility] Stop: 07/22/18 18:29 Last Admin: 05/27/18 03:47 Dose: 75 mls/hr Levofloxacin (Levaquin Pb) 750 mg in 150 mls @ 100 mls/hr IV Q24HR [facility] Stop: 07/23/18 14:59 Last Infusion: 05/27/18 17:49 Dose: Infused Ketorolac Tromethamine (Toradol) 30 mg IV Q6H PRN PRN Reason: Moderate Pain Stop: 05/29/18 14:30 Ondansetron HCl (Zofran) 4 mg IV Q4H PRN PRN Reason: Nausea / Vomiting Stop: 07/24/18 09:43 Last Admin: 05/25/18 10:22 Dose: 4 mg Trazodone HCl (Desyrel) 50 mg PO HS [facility]; Protocol Stop: 07/22/18 21:59 Last Admin: 05/27/18 20:32 Dose: 50 mg Activity: As Tolerated Discharge Diet: Regular Consults and Follow-Up: Elie Lester [Primary Care Provider] - Consulting Speciality: Ortho (Surgery, PCP) Instructions: Pneumothorax
[2018-05-28] MEDS ORDERED: Probiotic Screen MC PRN (12:37)
[2018-05-28] MEDS ORDERED: Lactobacillus Rhamnosus GG 15 Billion CFU CAP.SPRINK PO SCH (13:00)
--- NOTE | 2018-05-28 16:41 | Pathology Report ---
[id number] Collection date: 05/24/2018 Surgeon: Dr. Cameron Choi Specimen Description: 1. Portion of right middle lobe 2. Portion of right apical lobe Gross Description: Part I: Received in formalin is a 7 x 3.5 x 1.5 cm partially collapsed portion of brownish dumont spongy lung tissue with a cystically dilated 4 cm balloon-like area identified at one end of the specimen. Sectioning of this dilated area shows a markedly enlarged air space with a smooth glistening inner and outer wall that measures less than 1 mm in thickness. The remainder of the tissue has a spongy appearance consistent with lung parenchyma. There are no mass lesions identified. Grout Worker sections are submitted in five cassettes labeled A1 to A5. Cassettes A1 to A3 show the cystically dilated area, cassettes A4 and A5 show the lung tissue. Gross Description: Part II: Received in formalin is a 3.5 x 1.5 x 0.8 cm wedge shaped portion of spongy brownish dumont lung tissue with a metallic staple line identified at one end. Sectioning shows areas of cystically dilated air space lined by smooth glistening wall measuring up to 0.9 cm in greatest dimension. There are no mass lesions. Grout Worker sections are submitted in two cassettes labeled B1 and B2. Microscopic Description: Part I: The histologic sections show a cystically dilated air space lined by mesothelial cells and showing fibrosis and chronic inflammation of the cyst wall. The adjacent lung tissue shows aveolar lining cells and also has mild chronic inflammation consisting of slightly increased numbers of lymphocytes and plasma cells. Areas of fibrosis are seen throughout the specimen. 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 Microscopic Description: Part II: The histologic sections show lung tissue with areas of cystically dilated wall lined by mesothelial cells and macrophages. There is also chronic inflammation consisting of increased numbers of lymphocytes and plasma cells, as well as fibrosis and thickening of the cyst wall. Diagnosis: Part II: Dilated air space consistent with pulmonary bullae (right apical lobe). Comment: There is no evidence for malignancy. [facility]# [id number] FROYLAN
== END 2018-05-28 15:04 | disposition home or self-care (01) | DRG 121 ==
LOC: ER 15:59 → TELE 17:10 → ICU 05-24 16:18 → TELE 05-27 10:52
PROVIDERS: ADMIT General Practice; ATTEND General Practice
PROC: 0W9900Z Drainage of Right Pleural Cavity with Drainage Device, Open Approach (ICD-10-PCS; principal; 2018-05-24)
PROC: 0BBC4ZZ Excision of Right Upper Lung Lobe, Percutaneous Endoscopic Approach (ICD-10-PCS; 2018-05-24)
PROC: 0BBD4ZZ Excision of Right Middle Lung Lobe, Percutaneous Endoscopic Approach (ICD-10-PCS; 2018-05-24)
DX: J93.9 Pneumothorax, unspecified (principal); J96.00 Acute respiratory failure, unspecified whether with hypoxia or hypercapnia; J43.9 Emphysema, unspecified; I10 Essential (primary) hypertension; Z82.49 Family history of ischemic heart disease and other diseases of the circulatory system; Z80.3 Family history of malignant neoplasm of breast; Z81.8 Family history of other mental and behavioral disorders; Z82.3 Family history of stroke; Z87.891 Personal history of nicotine dependence; Z23 Encounter for immunization
CPT/HCPCS: 36415-UA; 36600-90; 71045-TC; 80053-TC; 80061-TC; 82550-TC; 82803-TC; 82948-90; 83880-TC; 84484-TC; 85007-TC; 85025-TC; 85027-TC; 85610-TC; 86850-TC; 86900-TC; 86901-TC; 93005; 94640; 94760; J1170; J1956; J2060; J2250; J2270; J2405; J2710; J3010; J3480; J7030; X6118; X6258; X6488; X7704; Z7610